=== PATIENT | female | born 1945 | race Caucasian/White ===

== ENCOUNTER 2020-11-04 13:50 | Outpatient (REF) | payer MEDICARE, SELFPAY ==
--- NOTE | ~2020-11-04 | MM_ITS ---
EXAMINATION: MM SCREENING DIGITAL BREAST TOMOSYNTHESIS, BILATERAL CLINICAL INFORMATION: Screening. Asymptomatic. The lifetime risk of breast cancer based on the Tyrer-Cuzick Model is 4%. COMPARISON: Mammography: 09/03/2019, 09/01/2018, 08/21/2016 TECHNIQUE: Digital breast tomosynthesis is performed in both the craniocaudal and mediolateral oblique views along with computer-aided detection (CAD). Synthesized 2D images are generated from the tomosynthesis. FINDINGS: The breasts are heterogeneously dense, which may obscure small masses (ACR BI-RADS breast composition Category c). There are no significant masses, abnormal calcifications, or other abnormalities. Fibronodular parenchymal pattern is similar to prior studies. Again, there is scattered bilateral punctate and coarse and vascular calcifications. The axilla and skin contours are unremarkable. No significant changes. MM/MM tomosynthesis screening BI IMPRESSION: No mammographic evidence of malignancy. ASSESSMENT: BI-RADS 2: Benign RECOMMENDATION: Routine annual mammography screening. This patient's information was entered into a reminder system with a target due date for their next mammogram.
== END 2020-11-04 13:51 | disposition home or self-care (01) ==
LOC: HO.MAMMO 13:50
PROVIDERS: PCP Internal Medicine; Visit Provider Internal Medicine
DX: Z12.31 Encounter for screening mammogram for malignant neoplasm of breast (principal)
CPT/HCPCS: 77063; 77067

== ENCOUNTER 2021-11-15 10:58 | Outpatient (REF) | payer MEDICARE, SELFPAY ==
--- NOTE | ~2021-11-15 | MM_ITS ---
EXAMINATION: MM SCREENING DIGITAL BREAST TOMOSYNTHESIS, BILATERAL CLINICAL INFORMATION: Screening. Asymptomatic. The lifetime risk of breast cancer based on the Tyrer-Cuzick Model is 3%. COMPARISON: Mammography: 11/04/2020, 09/03/2019, 09/01/2018 TECHNIQUE: Digital breast tomosynthesis is performed in both the craniocaudal and mediolateral oblique views along with computer-aided detection (CAD). Synthesized 2D images are generated from the tomosynthesis. FINDINGS: The breasts are heterogeneously dense, which may obscure small masses (ACR BI-RADS breast composition Category c). Parenchymal pattern is similar to prior studies. There is no developing density or architectural abnormality. There is fibronodular parenchymal pattern similar to prior studies. No interval dominant nodularity. Scattered benign round and coarse and some vascular calcifications are again seen. The axilla and skin contours are unremarkable. No significant changes. MM/MM tomosynthesis screening BI IMPRESSION: No mammographic evidence of malignancy. ASSESSMENT: BI-RADS 2: Benign RECOMMENDATION: Routine annual mammography screening. This patient's information was entered into a reminder system with a target due date for their next mammogram.
--- NOTE | ~2021-11-15 | MM_ITS ---
EXAMINATION: BONE DENSITOMETRY CLINICAL INDICATION: Osteopenia. COMPARISON: Baseline BD dated 09/24/2019. TECHNIQUE: Using a [employer]ble DXA System (software version: 13.1) manufactured by [employer], dual-energy x-ray absorptiometry was performed of the lumbar spine and left hip. The images are of good technical quality. Summary results are attached. FINDINGS: AP SPINE L1-L4 (excluding L3): The data of L1-L4 has been changed to exclude the L3 vertebral body, because degenerative changes and levocurvature at this level may cause overestimation of lumbar spine density. Current: BMD 1.346 g/cm2, Z-score 3.0, T-score 1.5, normal, 5.7% decrease from baseline (<5% change is not significant). Baseline: BMD 1.428 g/cm2. LEFT FEMUR, NECK: Current: BMD 0.808 g/cm2, Z-score 0.1, T-score -1.7, osteopenia. Baseline: BMD 0.763 g/cm2. LEFT FEMUR, TOTAL: Current: BMD 0.807 g/cm2, Z-score -0.1, T-score -1.6, osteopenia, 3.8% decrease from baseline (<5% change is not significant). Baseline: BMD 0.839 g/cm2. IDENTIFIED RISK FACTORS: Menopause, rheumatoid arthritis. HISTORY OF FRACTURE: None listed. MEDICATIONS: Calcium, vitamin D. MM/XR DEXA axial skeleton IMPRESSION: 1. DIAGNOSIS: Osteopenia based on the lowest T-score value of -1.7 in the femoral neck applying World Health Organization criteria. 2. 10-YEAR FRACTURE RISK PREDICTION, FRAX: Major osteoporotic fracture (clinical spine, forearm, hip or shoulder) 14.3%. Hip fracture 3.1%. 3. Treatment Recommendations: NOF guidelines recommend consideration for treatment in postmenopausal women and men age 50 and older presenting with the following: -A hip or vertebral (clinical or morphometric) fracture. -T-score less than or equal to -2.5 at the femoral neck or spine after appropriate evaluation to exclude secondary causes. -Low bone mass at the hip or spine and a 10-year fracture probability by FRAX of greater than or equal to 3% for hip fracture or greater than or equal to 20% for major osteoporotic fracture based on the [place] adapted WHO algorithm. 4. Other Recommendations: All treatment decisions require clinical judgment and consideration of individual patient factors, including patient preferences, comorbidities, previous drug use, risk factors not captured in the FRAX model (e.g. frailty, falls, vitamin D deficiency, increased bone turnover, interval significant decline in bone density) and possible under or overestimation of fracture risk by FRAX. Additional medical evaluation for secondary cause of low bone mineral density may be appropriate. FUTURE SCAN RECOMMENDATION: People with diagnosed cases of osteoporosis or at high risk for fracture should have regular bone mineral density tests. For patients eligible for Medicare, routine testing is allowed once every 2 years. The testing frequency can be increased to one year for patients who have rapidly progressing disease, those who are receiving or discontinuing medical therapy to restore bone mass, or have additional risk factors.
== END 2021-11-15 10:59 | disposition home or self-care (01) ==
LOC: HO.MAMMO 10:58
PROVIDERS: PCP Internal Medicine; Visit Provider Internal Medicine
DX: Z13.820 Encounter for screening for osteoporosis (principal); Z78.0 Asymptomatic menopausal state; M85.88 Other specified disorders of bone density and structure, other site; M06.9 Rheumatoid arthritis, unspecified; Z12.31 Encounter for screening mammogram for malignant neoplasm of breast
CPT/HCPCS: 77063; 77067; 77080

== ENCOUNTER 2022-12-06 12:11 | Outpatient (REF) | payer MEDICARE, SELFPAY ==
--- NOTE | ~2022-12-06 | MM_ITS ---
EXAMINATION: MM SCREENING DIGITAL BREAST TOMOSYNTHESIS, BILATERAL CLINICAL INFORMATION: Screening. Asymptomatic. The lifetime risk of breast cancer based on the Tyrer-Cuzick Model is 4%. COMPARISON: Mammography: 11/15/2021, 11/04/2020, 09/03/2019 TECHNIQUE: Digital breast tomosynthesis is performed in both the craniocaudal and mediolateral oblique views along with computer-aided detection (CAD). Synthesized 2D images are generated from the tomosynthesis. FINDINGS: The breasts are heterogeneously dense, which may obscure small masses (ACR BI-RADS breast composition Category c). Fibronodular parenchymal pattern is similar to prior exams and there is no developing density or architectural abnormality. Scattered bilateral benign coarse and round and vascular calcifications are again seen. There are no significant masses, abnormal calcifications, or other abnormalities. The axilla and skin contours are unremarkable. MM/MM tomosynthesis screening BI IMPRESSION: No mammographic evidence of malignancy. ASSESSMENT: BI-RADS 2: Benign RECOMMENDATION: Routine annual mammography screening. This patient's information was entered into a reminder system with a target due date for their next mammogram.
== END 2022-12-06 12:12 | disposition home or self-care (01) ==
LOC: HO.MAMMO 12:11
PROVIDERS: PCP Internal Medicine; Visit Provider Internal Medicine
DX: Z12.31 Encounter for screening mammogram for malignant neoplasm of breast (principal)
CPT/HCPCS: 77063; 77067

== ENCOUNTER 2023-04-14 07:13 | Outpatient (AMB) | payer MEDICARE, SELFPAY ==
--- NOTE | 2023-04-14 07:25 | MHC.PC.OV ---
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: pt is here for establishing care, care for afib Greenhouse Assistant Required: No Allergies No Known Allergies Allergy (Verified 04/14/23 07:37) Medication List - Last Reconciled 04/14/23 by Rakel Rodriguez MD amiodarone 200 mg PO DAILY amlodipine 10 mg PO DAILY apixaban (Eliquis) 5 mg PO BID atorvastatin 40 mg PO DAILY cholecalciferol (vitamin D3) 50 mcg PO DAILY folic acid 0.8 mg PO DAILY losartan 100 mg PO DAILY methotrexate sodium 20 mg PO QWEEK metoprolol succinate ER 75 mg PO DAILY omeprazole 20 mg PO DAILY trazodone 100 mg PO BEDTIME PRN vit C,E,Zn,Hn-rehye3-vlu-zeax 250-2.5-0.5 mg caps PO Tobacco use date assessed: 04/14/23 Fall risk assessment: No Falls in past year Last assessed Fall Risk: 04/14/23 Dental Screening Dental Screen Date: 04/14/23 Did you have a dental visit in the last 12 months?: Yes Did you have a dental problem in the last 6 months where you did not have access to dental care?: No Was dental information given to patient?: 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 Past medical history includes hypertension, hyperlipidemia, one episode of AFib last year, rheumatoid arthritis. PFSH Surgical History (Updated 04/14/23 @ 08:09 by Rakel Rodriguez MD) H/O breast biopsy Family History Father Heart problem Social History (Updated 04/14/23 @ 08:38 by Rakel Rodriguez MD) Household Members Other:: lives alone, daughter lives in [place], son lives in [place], Housing: House Alcohol intake: never Patient Tobacco Use Status: Never used Tobacco e-Cigarette/Vaping Use: Never Used service: No Current occupational status: retired Current occupational exposures/hazards: No Cognitive needs: No Hearing needs: No Vision needs: Yes Questionnaire PHQ-9 Over the last 2 weeks, how often have you been bothered by any of the following problems? 1. Little interest or pleasure in doing things: not at all 2. Feeling down, depressed, or hopeless: not at all 3. Trouble falling or staying asleep, or sleeping too much: not at all 4. Feeling tired or having little energy: not at all 5. Poor appetite or overeating: not at all 6. Feeling bad about yourself - or that you are a failure or have let yourself or your family down: not at all 7. Trouble concentrating on things, such as reading the newspaper or watching television: not at all 8. Moving or speaking so slowly that other people could have noticed. Or the opposite - being so fidgety or restless that you have been moving around a lot more than usual: not at all 9. Thoughts that you would be better off or of hurting yourself in some way: not at all Total score: 0 Depression Screening Interpretation: Negative 83496 - PHQ-9 Billing: Yes Source: Developed by Drs. Fredi Lambert, Kamila Winter, Jeanmarie Kevin and colleagues, with an educational clary from [employer]. Thrive Questionnaire Date Thrive assessed: 04/14/23 I am a: Patient What is your living situation today?: I have a steady place to live Within the past 12 months, did the food you bought not last and you didn't have the money to get more?: Never true Within the past 12 months, did you worry whether your food would run out before you got money to buy more?: Never true Do you have trouble paying for medicines?: No Do you have trouble getting transportation to medical appointments?: No Do you have trouble paying your heating and electricity bill?: No Do you have trouble taking care of your child, family member or friend?: No Do you have trouble with day-to-day activities such as bathing, preparing meals, shopping, managing finances, etc.?: No Are you currently unemployed and looking for a job?: No Are you interested in more education?: No Please select the resources that you would like help with: None Currently or been in a relationship where the following occur: no concerns reported RONDA-7 AMB Questionnaire RONDA-7 Date RONDA - 7 assessed: 04/14/23 Feeling nervous, anxious, or on edge: 0 = Not at all Not being able to stop or control worryin = Not at all Worrying too much about different things: 0 = Not at all Trouble relaxin = Not at all Being so restless that it is hard to sit still: 0 = Not at all Becoming easily annoyed or irritable: 0 = Not at all Feeling afraid as if something awful might happen: 0 = Not at all Total RONDA-7 score (0-4 normal; 5-9 mild; 10-14 moderate; 15-21 severe): 0 Source: Developed by Drs. Fredi Lambert, Kamila Winter, Jeanmarie Kevin and colleagues, with an educational clary from [employer]. RONDA-7 Assessment Billing RONDA-7 Assessment Tool: RONDA-7 Assessment 41047 Review of Systems Const All systems reviewed & are unremarkable except as noted in HPI and below Reports no additional complaints Eyes Reports no additional complaints ENT Reports no additional complaints Card Reports no additional complaints Resp Reports no additional complaints GI Reports no additional complaints Reports no additional complaints Physical exam (Primary Care) Vital Signs: Last Vital Signs Pulse 76 04/14/23 07:29 BP 128/70 04/14/23 07:29 Pulse Ox 98 04/14/23 07:29 BMI result Body Mass Index 25.1 Tobacco/Smoking Status: Tobacco use Status Tobacco use date assessed 04/14/23 04/14/23 07:46 Patient Tobacco Use Status Never used Tobacco 04/14/23 07:46 e-Cigarette/Vaping Use Never Used 04/14/23 07:46 PHQ-9: PHQ-9 Score PHQ-9: Total score 0 04/14/23 07:46 Depression Screening Interpretation: Negative Thrive Assessment: Date of Thrive Assessment Date Thrive assessed 04/14/23 04/14/23 07:46 Currently or been in a relationship where the following occur: no concerns reported Const General: no acute distress HENMT Head: Yes normal to inspection Ears: hearing grossly normal bilaterally Face and sinus: Yes normal facial exam Mouth: Normal oral and palatal mucosa present Throat: Yes posterior oropharynx normal Eyes General: appearance normal, both eyes and all related structures Neck Neck: Yes no lymphadenopathy and Yes supple Resp Effort & Inspection: normal respiratory effort Auscultation: clear to auscultation bilaterally Cardio Rhythm: regular rhythm Heart sounds: S1 normal heart sound present and S2 normal heart sound present GI Inspection: Yes normal to inspection Palpation (GI): Soft to palpation Percussion: Yes normal to percussion Auscultation: normal bowel sounds General: Yes Bimanual renal exam normal bilaterally Assessment and Plan Assessment & Plan (1) A-fib: Comment: 1 episode 2021 f/u [facility], Code(s): I48.91 - Unspecified atrial fibrillation Plan: Continue medications and follow-up with funeral counselor every 6 months, patient will return in 5 months with fasting labs before (2) Hyperlipidemia: Code(s): E78.5 - Hyperlipidemia, unspecified Plan: Continue statin (3) GERD (gastroesophageal reflux disease): Comment: f/u Dr. 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 Panel Fast 5 Months E55.9 - Vitamin D deficiency, unspecified, E78.5 - Hyperlipidemia, unspecified, H35.9 - Unspecified retinal disorder, I10 - Essential (primary) hypertension, I48.91 - Unspecified atrial fibrillation, M05.20 - Rheumatoid vasculitis with rheumatoid arthritis of unspecified site Lipid Panel 5 Months E55.9 - Vitamin D deficiency, unspecified, E78.5 - Hyperlipidemia, unspecified, H35.9 - Unspecified retinal disorder, I10 - Essential (primary) hypertension, I48.91 - Unspecified atrial fibrillation, M05.20 - Rheumatoid vasculitis with rheumatoid arthritis of unspecified site TSH reflex Free T4 5 Months E55.9 - Vitamin D deficiency, unspecified, E78.5 - Hyperlipidemia, unspecified, H35.9 - Unspecified retinal disorder, I10 - Essential (primary) hypertension, I48.91 - Unspecified atrial fibrillation, M05.20 - Rheumatoid vasculitis with rheumatoid arthritis of unspecified site Vitamin D 25-OH Total 5 Months E55.9 - Vitamin D deficiency, unspecified, E78.5 - Hyperlipidemia, unspecified, H35.9 - Unspecified retinal disorder, I10 - Essential (primary) hypertension, I48.91 - Unspecified atrial fibrillation, M05.20 - Rheumatoid vasculitis with rheumatoid arthritis of unspecified site Complete Blood Count Auto Diff 5 Months E55.9 - Vitamin D deficiency, unspecified, E78.5 - Hyperlipidemia, unspecified, H35.9 - Unspecified retinal disorder, I10 - Essential (primary) hypertension, I48.91 - Unspecified atrial fibrillation, M05.20 - Rheumatoid vasculitis with rheumatoid arthritis of unspecified site Coding Level of Care Code New Pt Level 4 (53447) Diagnoses A-fib I48.91 Hyperlipidemia E78.5 GERD (gastroesophageal reflux disease) K21.9 Hx of colonoscopy Z98.890 Hx of screening mammography Z92.89 Rheumatoid arteritis M05.20 Vitamin D deficiency E55.9 Additional Codes RONDA-7 Assessment Billing - RONDA-7 Assessment Tool: RONDA-7 Assessment 41323 ([id number])
[2023-04-14 07:29] VITALS: BP 128/70; PULSE 76; O2SAT 98; BMI 25.1
== END 2023-04-14 08:26 | disposition home or self-care (01) ==
PROVIDERS: Visit Provider Internal Medicine
DX: I48.91 Unspecified atrial fibrillation (principal); E78.5 Hyperlipidemia, unspecified; K21.9 Gastro-esophageal reflux disease without esophagitis; Z98.890 Other specified postprocedural states; Z92.89 Personal history of other medical treatment; M05.20 Rheumatoid vasculitis with rheumatoid arthritis of unspecified site; E55.9 Vitamin D deficiency, unspecified
CPT/HCPCS: 99204

== ENCOUNTER 2023-04-21 08:47 | Outpatient (AMB) | payer MEDICARE, SELFPAY ==
--- NOTE | 2023-04-21 08:59 | MHC.OFFWIV ---
Intake Vital Signs 04/21/23 09:00 Height 5 ft 1 in BP 128/62 Blood Pressure Location Rt brachial Position Sitting Pulse 73 Pulse Source Pulse Oximeter Pulse Oximetry (%) 98 Oxygen Delivery Method Room Air Intake Visit Reasons: EP lower back pain after fall (lob) Intake Note: Pt states fell in her garage from standing on ladder on Friday. Pt states its her Lower mid back where the pain is. Patient Tobacco Use Status: Never used Tobacco Allergies No Known Allergies Allergy (Verified 04/21/23 09:56) Medication List - Last Reconciled 04/21/23 by Kevin Burnett MD amiodarone 200 mg PO DAILY amlodipine 10 mg PO DAILY apixaban (Eliquis) 5 mg PO BID atorvastatin 40 mg PO DAILY cholecalciferol (vitamin D3) 50 mcg PO DAILY folic acid 0.8 mg PO DAILY losartan 100 mg PO DAILY methotrexate sodium 20 mg PO QWEEK metoprolol succinate ER 75 mg PO DAILY omeprazole 20 mg PO DAILY trazodone 100 mg PO BEDTIME PRN vit C,E,Zn,Xw-slscu0-qpa-zeax 250-2.5-0.5 mg caps PO HPI EP lower back pain after fall (lobby) HPI Details 77-year-old female presents to the office for a sick visit. Patient missed a step in the ladder and fell on Friday last. She could get up on her own unassisted. Patient has severe pain on the left upper side of the back. [facility] Surgical History (Updated 04/14/23 @ 08:09 by Rakel Rodriguez MD) H/O breast biopsy Family History Father Heart problem Social History (Updated 04/14/23 @ 08:38 by Rakel Rodriguez MD) Household Members Other:: lives alone, daughter lives in [place], son lives in [place], Housing: House Alcohol intake: never Patient Tobacco Use Status: Never used Tobacco e-Cigarette/Vaping Use: Never Used service: No Current occupational status: retired Current occupational exposures/hazards: No Cognitive needs: No Hearing needs: No Vision needs: Yes Physical Exam Vital Signs: Last Vital Signs Pulse 73 04/21/23 09:00 BP 128/62 04/21/23 09:00 Pulse Ox 98 04/21/23 09:00 Oxygen Delivery Method Room Air 04/21/23 09:00 Const General: cooperative and healthy appearing Nutritional Appearance: well nourished Orientation/consciousness: patient oriented x3 Limitations: no limitations HEENT Head: Yes normal to inspection Eyes General: appearance normal, both eyes and all related structures Neck Neck: Yes normal visual inspection Chest Chest palpation & inspection: normal palpation of entire chest wall Resp Effort & Inspection: normal respiratory effort Back/Spine/Pelvis Other: Extremely tender to touch over the left 11th and 12th ribs. There is a bruising over back area. Neuro General: patient oriented x3 Assessment & Plan Assessment & Plan (1) Contusion, chest wall: Code(s): S20.219A - Contusion of unspecified front wall of thorax, initial encounter Plan: X-ray reviewed with patient. Possible fracture over the eleventh and 12th rib. Toradol injection given. Tramadol prescription provided. To take the medication once a day. If symptoms do not improve to follow-up here. Orders: Orders AMB Ketorolac Injection Today M54.50 - Low back pain, unspecified Medications: New ketorolac 60 mg (2 mL) IM ONCE 2 mL 0RF M54.50 - Low back pain, unspecified tramadol 50 mg PO DAILY 7 tabs 0RF Coding Level of Care Code Est Pt Level 4 (66636) Diagnoses Contusion, chest wall S20.219A
[2023-04-21 09:00] VITALS: BP 128/62; PULSE 73; O2SAT 98
== END 2023-04-21 10:20 | disposition home or self-care (01) ==
PROVIDERS: PCP Internal Medicine; Visit Provider Internal Medicine
DX: S20.219A Contusion of unspecified front wall of thorax, initial encounter (principal); M54.50 Low back pain, unspecified
CPT/HCPCS: 96372; 99214; J1885

== ENCOUNTER 2023-04-21 09:34 | Outpatient (REF) | payer MEDICARE, SELFPAY ==
--- NOTE | ~2023-04-21 | XR_ITS ---
EXAMINATION: XR RIBS, left, PA CHEST CLINICAL INFORMATION: Chest and left rib pain. COMPARISON: None available. TECHNIQUE: 3 views of the left ribs were obtained along with a PA view of the chest. FINDINGS: Lungs are clear. No consolidation, pneumothorax, or pleural effusion. The cardiomediastinal silhouette and pulmonary vasculature are normal. Deformity seen in the lateral left 11th rib. Ribs are intact. No fractures are identified. XR/XR ribs LT min 3V w CXR1V IMPRESSION: 1. Deformity in the left lateral seventh rib suggestive of an acute fracture or correlate with physical exam. 2. No acute cardiopulmonary process.
== END 2023-04-21 09:35 | disposition home or self-care (01) ==
LOC: HO.HMGCX 09:34
PROVIDERS: PCP Internal Medicine; Visit Provider Internal Medicine
DX: S20.212A Contusion of left front wall of thorax, initial encounter (principal)
CPT/HCPCS: 71101

== ENCOUNTER 2023-08-14 08:13 | Outpatient (REF) | payer MEDICARE, SELFPAY ==
[2023-08-14 11:48] LABS: MANUAL DIFF FLAG NO
[2023-08-14 12:16] LABS: Basophils Absolute Auto 0.1 X10*3/uL (0.0-0.2); Eosinophils Absolute Auto 0.2 X10*3/uL (0.0-0.4); Eosinophils Percent Auto 4.6 % (0-4); Hematocrit 38.9 % (37.0-47.0); Hemoglobin 12.6 g/dl (12.0-16.0); Imm Gran Abs Auto 0.02 X10*3/uL (0.00-0.03); Imm Gran Pct Auto 0.4 % (0.0-0.4); Lymphocytes Percent Auto 21.4 % (20-40); Mean Corpuscular HGB Conc 32.4 g/dl (31.0-35.0); Mean Corpuscular Hemoglobin 31.8 pg (27.0-33.0); Mean Corpuscular Volume 98.2 fL (80.0-98.0); Mean Platelet Volume 10.2 fL (9.4-12.3); Monocytes Absolute Auto 0.4 X10*3/uL (0.1-1.2); Monocytes Percent Auto 7.5 % (2-11); Neutrophils Absolute Auto 3.1 x10*3/uL (2.0-8.3); Neutrophils Percent Auto 65.1 % (45-73); Platelet Count 255 X10*3/uL (160-400); Red Blood Count 3.96 X10*6/uL (4.20-5.50); Red Cell Distribution Width 14.1 % (11.0-16.0); White Blood Count 4.8 X10*3/uL (4.8-10.8)
[2023-08-14 12:42] LABS: Alanine Aminotransferase 16 U/L (0-31); Alkaline Phosphatase 72 U/L (39-117); Anion Gap 11 (12-20); Aspartate Amino Transferase 16 U/L (5-31); Bilirubin Total 1.2 mg/dL (0.0-1.0); Blood Urea Nitrogen 11 mg/dL (9-16); Calcium 9.4 mg/dL (8.4-10.2); Carbon Dioxide 28 mmol/L (22-29); Chloride 107 mmol/L (96-108); Cholesterol 121 mg/dL (<200); Estimated Glomerular Filt Rate > 60; Glucose Fasting 106 mg/dL (60-99); HDL Cholesterol 52 mg/dL (>40); LDL Cholesterol Calculated 57 mg/dL (<100); Potassium 4.1 mmol/L (3.3-5.1); Sodium 142 mmol/L (135-145); Total Protein 6.5 g/dL (6.5-8.0); Triglycerides 61 mg/dL (<150)
[2023-08-14 12:47] LABS: TSH reflex Free T4 6.22 uIU/mL (0.32-4.0); Vitamin D 25-OH Total 72.1 ng/mL (>30)
[2023-08-14 14:11] LABS: Free T4 (Free Thyroxine) 0.93 ng/dL (0.71-1.85)
== END 2023-08-14 08:14 | disposition home or self-care (01) ==
LOC: HO.HMGCLDS 08:13
PROVIDERS: Absent Provider Internal Medicine; PCP Internal Medicine; Visit Provider Internal Medicine
DX: M05.20 Rheumatoid vasculitis with rheumatoid arthritis of unspecified site (principal); E78.5 Hyperlipidemia, unspecified; I48.91 Unspecified atrial fibrillation; I10 Essential (primary) hypertension; H35.9 Unspecified retinal disorder; E55.9 Vitamin D deficiency, unspecified; Z79.899 Other long term (current) drug therapy
CPT/HCPCS: 36415; 80053; 80061; 82306; 84439; 84443; 85025

== ENCOUNTER 2023-08-19 09:57 | Outpatient (AMB) | payer MEDICARE, SELFPAY ==
[2023-08-19 10:01] VITALS: BP 104/64; PULSE 53; O2SAT 100; BMI 23.2
--- NOTE | 2023-08-19 10:01 | A.OFFPC_ITS ---
Vital Signs 08/19/23 10:01 Height 5 ft 1 in Weight 123 lb BMI 23.2 BP 104/64 Blood Pressure Location Lt brachial Position Sitting Pulse 53 Pulse Source Pulse Oximeter Pulse Oximetry (%) 100 Oxygen Delivery Method Room Air Intake Visit Reasons: 5 month follow up Intake Note: Pt is here today for 5 months follow up visit on labs. Allergies No Known Allergies Allergy (Verified 08/19/23 10:06) Medication List - Last Reconciled 08/19/23 by Rakel Rodriguez MD amiodarone 200 mg PO DAILY amlodipine 10 mg PO DAILY apixaban (Eliquis) 5 mg PO BID atorvastatin 40 mg PO DAILY cholecalciferol (vitamin D3) 50 mcg PO DAILY folic acid 0.8 mg PO DAILY losartan 100 mg PO DAILY methotrexate sodium 20 mg PO QWEEK metoprolol succinate ER 75 mg PO DAILY omeprazole 20 mg PO DAILY trazodone 100 mg PO BEDTIME PRN vit C,E,Zn,Af-ecmvr4-mss-zeax 250-2.5-0.5 mg caps PO Tobacco use date assessed: 08/19/23 HPI 5 month follow up HPI Details Pt presents for A fib, HTN, hyperlipid, stable on meds. PFSH Surgical History H/O breast biopsy Family History Father Heart problem Social History Household Members Other:: lives alone, daughter lives in [place], son lives in [place], Housing: House Alcohol intake: never Patient Tobacco Use Status: Never used Tobacco e-Cigarette/Vaping Use: Never Used service: No Current occupational status: retired Current occupational exposures/hazards: No Cognitive needs: No Hearing needs: No Vision needs: Yes Questionnaire Thrive Questionnaire Date Thrive assessed: 04/14/23 AUDIT C Alcohol Use Questionnaire (AUDIT-C) 1. How often do you have a drink containing alcohol?: Never 2. How many drinks containing alcohol do you have on a typical day when you are drinking?: 1 or 2 3. How often do you have six or more drinks on one occasion?: Never Total Score: 0 RONDA-7 AMB Questionnaire RONDA-7 Date RONDA - 7 assessed: 04/14/23 Feeling nervous, anxious, or on edge: 0 = Not at all Not being able to stop or control worryin = Not at all Worrying too much about different things: 0 = Not at all Trouble relaxin = Not at all Being so restless that it is hard to sit still: 0 = Not at all Becoming easily annoyed or irritable: 0 = Not at all Feeling afraid as if something awful might happen: 0 = Not at all Total RONDA-7 score (0-4 normal; 5-9 mild; 10-14 moderate; 15-21 severe): 0 Source: Developed by Drs. Fredi Lambert, Kamila Winter, Jeanmarie Kevin and colleagues, with an educational lcary from [employer]. Review of Systems Const All systems reviewed & are unremarkable except as noted in HPI and below Reports no additional complaints Eyes Reports no additional complaints ENT Reports no additional complaints Card Reports no additional complaints Resp Reports no additional complaints GI Reports no additional complaints Reports no additional complaints Physical exam (Primary Care) Vital Signs: Last Vital Signs Pulse 53 08/19/23 10:01 BP 104/64 08/19/23 10:01 Pulse Ox 100 08/19/23 10:01 Oxygen Delivery Method Room Air 08/19/23 10:01 BMI result Body Mass Index 23.2 Tobacco/Smoking Status: Tobacco use Status Tobacco use date assessed 08/19/23 08/19/23 10:10 Patient Tobacco Use Status Never used Tobacco 08/19/23 10:10 e-Cigarette/Vaping Use Never Used 08/19/23 10:02 Thrive Assessment: Date of Thrive Assessment Date Thrive assessed 04/14/23 08/19/23 10:02 Const General: no acute distress HENMT Head: Yes normal to inspection Ears: hearing grossly normal bilaterally Mouth: Normal oral and palatal mucosa present Eyes General: appearance normal, both eyes and all related structures Neck Neck: Yes no lymphadenopathy and Yes supple Resp Effort & Inspection: normal respiratory effort Auscultation: clear to auscultation bilaterally Cardio Rhythm: regular rhythm Heart sounds: S1 normal heart sound present and S2 normal heart sound present GI Inspection: Yes normal to inspection Palpation (GI): Soft to palpation Assessment and Plan Assessment & Plan (1) Hypothyroid: Comment: ? side effect from AMIODARONE Code(s): E03.9 - Hypothyroidism, unspecified Plan: recheck TSH in mid Sep and is still elevated start Levothyroxine (2) HTN (hypertension): Code(s): I10 - Essential (primary) hypertension Plan: Cont meds (3) Hyperlipidemia: Code(s): E78.5 - Hyperlipidemia, unspecified Plan: cont statin (4) A-fib: Comment: 1 episode 2020 f/u [facility], Dr. Horton Code(s): I48.91 - Unspecified atrial fibrillation Plan: cont meds, f/u 6 months Orders: Orders Comprehensive [place]. Panel Fast 6 Months E03.9 - Hypothyroidism, unspecified, E78.5 - Hyperlipidemia, unspecified, I10 - Essential (primary) hypertension, I48.91 - Unspecified atrial fibrillation TSH reflex Free T4 6 Months E03.9 - Hypothyroidism, unspecified, E78.5 - Hyperlipidemia, unspecified, I10 - Essential (primary) hypertension, I48.91 - Unspecified atrial fibrillation Complete Blood Count Auto Diff 6 Months E03.9 - Hypothyroidism, unspecified, E78.5 - Hyperlipidemia, unspecified, I10 - Essential (primary) hypertension, I48.91 - Unspecified atrial fibrillation Medications: New amiodarone 200 mg PO DAILY 90 tabs 3RF amlodipine 10 mg PO DAILY 90 tabs 3RF losartan 100 mg PO DAILY 90 tabs 3RF atorvastatin 40 mg PO DAILY 90 tabs 3RF metoprolol succinate ER 75 mg (1.5 x 50 mg) PO DAILY 135 tabs 3RF trazodone 100 mg (2 x 50 mg) PO BEDTIME PRN 180 tabs 3RF sleep Changed From apixaban (Eliquis) 5 mg PO BID To Eliquis (apixaban) 5 mg PO BID 180 tabs 3RF NS Coding Level of Care Code Est Pt Level 4 (36646) Diagnoses Hypothyroid E03.9 HTN (hypertension) I10 Hyperlipidemia E78.5 A-fib I48.91
== END 2023-08-19 10:56 | disposition home or self-care (01) ==
PROVIDERS: PCP Internal Medicine; Visit Provider Internal Medicine
DX: E03.9 Hypothyroidism, unspecified (principal); I10 Essential (primary) hypertension; E78.5 Hyperlipidemia, unspecified; I48.91 Unspecified atrial fibrillation
CPT/HCPCS: 99214

== ENCOUNTER 2023-12-16 11:30 | Outpatient (REF) | payer MEDICARE, SELFPAY ==
--- NOTE | ~2023-12-16 | MM_ITS ---
EXAMINATION: MM SCREENING DIGITAL BREAST TOMOSYNTHESIS, BILATERAL CLINICAL INFORMATION: Screening. Asymptomatic. COMPARISON: Mammography: This study is compared with prior exams dating back to 2019. TECHNIQUE: Digital breast tomosynthesis is performed in both the craniocaudal and mediolateral oblique views along with computer-aided detection (CAD). Synthesized 2D images are generated from the tomosynthesis. FINDINGS: The breasts are heterogeneously dense, which may obscure small masses (ACR BI-RADS breast composition Category c). The volume of intraparenchymal breast fat and subcutaneous fat of the breasts has decreased owing to the patient's 42, weight loss since her last mammogram from 2022. There are no significant masses, abnormal calcifications, or other abnormalities. There are unchanged, bilateral benign calcifications. MM/MM tomosynthesis screening BI IMPRESSION: No mammographic evidence of malignancy. ASSESSMENT: BI-RADS BI-RADS 2 - Benign Findings RECOMMENDATION: Routine annual mammography screening. 1 year F/U This examination should not preclude the clinical evaluation of a suspicious palpable abnormality. This patient's information was entered into a reminder system with a target due date for their next mammogram.
== END 2023-12-16 11:31 | disposition home or self-care (01) ==
LOC: HO.MAMMO 11:30
PROVIDERS: PCP Internal Medicine; Visit Provider Internal Medicine
DX: Z12.31 Encounter for screening mammogram for malignant neoplasm of breast (principal)
CPT/HCPCS: 77063; 77067

== ENCOUNTER → 2023-12-16 11:45 | Outpatient (BNV) | payer MEDICARE, SELFPAY | PROVIDERS: PCP Internal Medicine; Visit Provider Radiology Diagnostic Radiology | DX: Z12.31 Encounter for screening mammogram for malignant neoplasm of breast (principal) | CPT/HCPCS: 77063; 77067 ==

== ENCOUNTER 2024-02-17 11:21 | Outpatient (AMB) | payer MEDICARE, SELFPAY ==
[2024-02-17 11:30] VITALS: BP 118/66; PULSE 58; O2SAT 99; BMI 23.4
--- NOTE | 2024-02-17 11:30 | AM.OFFVISMDC ---
Intake Vital Signs 02/17/24 11:30 Height 5 ft 1 in Weight 124 lb BMI 23.4 BP 118/66 Blood Pressure Location Lt brachial Position Sitting Pulse 58 Pulse Source Pulse Oximeter Pulse Oximetry (%) 99 Oxygen Delivery Method Room Air Intake Visit Reasons: [facility] G0439 Allergies No Known Allergies Allergy (Verified 02/17/24 11:52) Medication List - Last Reconciled 02/17/24 by Rakel Rodriguez MD amiodarone 200 mg PO DAILY amlodipine 10 mg PO DAILY atorvastatin 40 mg PO DAILY cholecalciferol (vitamin D3) 50 mcg PO DAILY Eliquis (apixaban) 5 mg PO BID NS folic acid 0.8 mg PO DAILY levothyroxine 25 mcg PO DAILY losartan 100 mg PO DAILY methotrexate sodium 20 mg PO QWEEK metoprolol succinate ER 75 mg (1.5 x 50 mg) PO DAILY omeprazole 20 mg PO DAILY trazodone 100 mg (2 x 50 mg) PO BEDTIME PRN vit C,E,Zn,Ce-aydzu7-wzy-zeax 250-2.5-0.5 mg caps PO HPI [facility] G0439 HPI Details Initiated the conversation about Advanced Directives. Advanced Directives help? patients prepare for current and future decisions about their medical treatment? and place of care. Discussed with patient that it is a process where a patients? current condition and prognosis are reviewed, their wishes for information? regarding their illness are elicited, and likely medical dilemmas are presented? and options discussed. The form can be amended as needed, reviewed yearly and? make changes as needed IPPE/AWV ? year old presents? for her ? Annual? Wellness Visit, initial visit.? Medical / Social History Reviewed? Past Medical History ?Yes? . ? [place]? of Care / Care Team list updated ?Yes . ? Surgical/Hospitalization? History ?Yes . ? Current Medications? (including OTC and supplements) ?Yes . ? Family History ?Yes? . ? Tobacco? Control form ?Yes . ? AUDIT-C (Alcohol use) form? ?Yes . ? Illicit drug use in Social? History ?Yes . ? Current diagnosis of? depression? ?No ? Appropriate PHQ2/PHQ9? completed ?Yes . ? Data entered by ?Medical? [employer] and reviewed by provider ? Fall Risk ? Fall? History? Have you had any falls with? injury in the past year? ?No . ? Have you had two or more? falls in the past year? ?No . ? Fall Risk Assessment: ?No? falls in the past year . ? HRA filled out by? the patient, reviewed by Provider and scanned. ? IPPE/AWV ? Balance? [place]? ?Yes . ? Tandem? walk ?Yes . ? Walk and? Turn ?Yes . ? Rise from? sit to stand ?Yes . ?Vision? Corrective? lens ?Yes ? Vision? screen ? Up-to-date, has an appointment [] for vision? screening and glaucoma screening ?Hearing? Whisper? test ?pass .? Initiated the conversation about Advanced Directives. Advanced Directives help? patients prepare for current and future decisions about their medical treatment? and place of care. Discussed with patient that it is a process where a patients? current condition and prognosis are reviewed, their wishes for information? regarding their illness are elicited, and likely medical dilemmas are presented? and options discussed. The form can be amended as needed, reviewed yearly and? make changes as needed Written? Plan?Completed. See Patient? Documents. PFSH Surgical History H/O breast biopsy Family History Father Heart problem Social History Household Members Other:: lives alone, daughter lives in [place], son lives in [place], Housing: House Alcohol intake: never Patient Tobacco Use Status: Never used Tobacco e-Cigarette/Vaping Use: Never Used service: No Current occupational status: retired Current occupational exposures/hazards: No Cognitive needs: No Hearing needs: No Vision needs: Yes Questionnaire Medicare Wellness Checkup [age] What gender do you identify with?: female During the past 4 weeks, how much have you been bothered by emotional problems such as feeling anxious, depressed, irritable, sad or downhearted, and blue?: not at all During the past 4 weeks, has your physical & emotional health limited your social activities with family, friends, neighbors, or groups?: not at all During the past 4 weeks, how much bodily pain have you generally had?: mild pain During the past 4 weeks, was someone available to help you if you needed & wanted help?: yes, as much as I wanted During the past 4 weeks, what was the hardest physical activity you could do for at least 2 minutes?: moderate Can you get to places out of walking distance without help? (For eg., can you travel alone on buses, taxis or drive your car?): Yes Can you go shopping for groceries or clothes without someone's help?: Yes Can you prepare your own meals?: Yes Can you do your housework without help?: Yes Because of any health problems, do you need the help of another person with your personal care needs such as eating, bathing, dressing or getting around the house?: No Can you handle your own money without help?: Yes During the past 4 weeks, how would you rate your health in general?: very good During the past 4 weeks how have things been going for you?: very well; could hardly better Are you having difficulties driving your car?: no Do you always fasten your seat belt when you are in a car?: yes, usually During past 4 weeks, have you been bothered by the following: never: Falling or dizzy when standing up, Sexual problems?, Trouble eating well?, Teeth or denture problems? and Problems using the telephone? and seldom: Tiredness or fatigue? Have you fallen 2 or more times in the past year?: No Are you afraid of falling?: Yes Are you a smoker?: no During the past 4 weeks, how many drinks of wine, beer, or other alcoholic beverages did you have?: no alcohol at all Do you exercise for about 20 minutes 3 or more times a week?: yes, some of the time Have you been given information to help with the following?: no: Hazards in your house that might hurt you? and no: Keeping track of your medications? How often do you have trouble taking medicines the way you have been told to take them?: I always take medicine as prescribed How confident are you that you can control & manage most of your health problems?: somewhat confident What is your race?: White Mini Mental State Exam (MMSE) Orientation What is the (year) (season) (date) (day) (month)?: year, season, date, day and month Where are we (state) (county) (town or city) (hospital) (floor)?: state, county, town or city, hospital/clinic and floor Registration Name of 3 unrelated objects clearly and slowly, then ask patient to repeat all 3 of them. (1st repeat determines score. Make sure they can repeat all three): object 1, object 2 and object 3 Attention & Calculation (CHOOSE ONE) Spell WORLD backwards (DLROW): 5 letters Recall Ask patient to repeat the 3 items from question #3.: object 1, object 2 and object 3 Language Show patient a wristwatch & ask what it is. Repeat for pencil.: watch and pencil Ask the patient to repeat the phrase 'No ifs, ands, or buts' after you.: correct Ask the patient to 'take a piece of paper with their right hand' 'fold paper in half' 'place paper on floor': take paper in right hand, fold paper in half and place paper on floor Print the sentence 'CLOSE YOUR EYES' on a piece. If patient actually closes eyes then score.: followed written direction Give patient a blank piece of paper & ask to write a sentence. Score if it contains a noun & verb.: sentence contains subject and verb Score Score: 29 Activity of Daily Living Bathing - sponge bath, tub bath or shower: receives no assistance (gets in/out by self, if usual bathing means Dressing - getting clothes from closets & drawers, including inner/outer garments & fasteners.: gets clothes & gets completely dressed without help Toileting - going to the 'toilet room' for urine/bowel elimination & cleaning self/arranging clothes: goes to toilet room, cleans self, arranges clothes without help Transfer: moves in & out of bed and chair without help (may use support object) Continence: controls urination/bowel movements completely by self Feeding: feeds self without help Total Score: 0 Information obtained from: patient Using telephone: independent Traveling: independent Shopping: independent Preparing meals: independent Housework: independent Taking medicine: independent Managing money: independent PHQ-9 Over the last 2 weeks, how often have you been bothered by any of the following problems? 1. Little interest or pleasure in doing things: not at all 2. Feeling down, depressed, or hopeless: not at all 3. Trouble falling or staying asleep, or sleeping too much: not at all 4. Feeling tired or having little energy: not at all 5. Poor appetite or overeating: not at all 6. Feeling bad about yourself - or that you are a failure or have let yourself or your family down: not at all 7. Trouble concentrating on things, such as reading the newspaper or watching television: not at all 8. Moving or speaking so slowly that other people could have noticed. Or the opposite - being so fidgety or restless that you have been moving around a lot more than usual: not at all 9. Thoughts that you would be better off or of hurting yourself in some way: not at all Total score: 0 Depression Screening Interpretation: Negative Depression Screening Done: Yes Source: Developed by Drs. Fredi Lambert, Kamila Winter, Jeanmarie Kevin and colleagues, with an educational clary from [employer]. Review of Systems Const All systems reviewed & are unremarkable except as noted in HPI and below Eyes Reports no additional complaints ENT Reports no additional complaints Card Reports no additional complaints Resp Reports no additional complaints GI Reports no additional complaints Reports no additional complaints Physical Exam Vital Signs: Last Vital Signs Pulse 58 02/17/24 11:30 BP 118/66 02/17/24 11:30 Pulse Ox 99 02/17/24 11:30 Oxygen Delivery Method Room Air 02/17/24 11:30 BMI result Body Mass Index 23.4 Const General: no acute distress HEENT Head: Yes normal to inspection Eyes General: appearance normal, both eyes and all related structures Neck Neck: Yes supple Resp Effort & Inspection: normal respiratory effort Auscultation: clear to auscultation bilaterally Cardio Rhythm: regular rhythm Heart sounds: S1 normal heart sound present and S2 normal heart sound present GI Inspection: Yes normal to inspection Palpation (GI): Soft to palpation Percussion: Yes normal to percussion Auscultation: normal bowel sounds Extrem Other: 3+ no pitting edema bilaterally Assessment & Plan Assessment & Plan (1) Hypothyroid: Comment: ? side effect from AMIODARONE Code(s): E03.9 - Hypothyroidism, unspecified Plan: Start levothyroxine 25 mcg, check TSH in 2 months (2) HTN (hypertension): Code(s): I10 - Essential (primary) hypertension Plan: Patient has lower extremity edema from high dose of amlodipine. Amlodipine will be decreased to 5 mg and losartan changed to valsartan with hydrochlorothiazide 320/12.5. 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 Horton Code(s): I48.91 - Unspecified atrial fibrillation Plan: Continue Eliquis and metoprolol for rate control (5) Annual physical exam: Code(s): Z00.00 - Encounter for general adult medical examination without abnormal findings Plan: Well-balanced diet regular physical activity discussed with the patient. Orders: Orders TSH reflex Free T4 2 Months E03.9 - Hypothyroidism, unspecified Basic Metabolic Panel 1 Month I10 - Essential (primary) hypertension Medications: New levothyroxine 25 mcg PO DAILY 60 tabs 1RF valsartan-hydrochlorothiazide 320-12.5 mg 1 tab PO DAILY 90 tabs 0RF Quality Reporting (2019) Depression/Bipolar (159/160/161/177) PHQ-9: Total score: 0 Coding Level of Care Code Medicare Subsequent (G0439) Diagnoses Hypothyroid E03.9 HTN (hypertension) I10 Rheumatoid arteritis M05.20 A-fib I48.91 Annual physical exam Z00.00 CPT Codes Advance Care Planning - Advance Care Planning discussion: On file, no changes ([id number]) Advance Care Planning - Time spent: 1-15 minutes, on File ([id number]) Advance Care Planning Advance Care Planning discussion: On file, no changes Forms completed: Health Care Proxy Time spent: 1-15 minutes, on File
== END 2024-02-17 13:16 | disposition home or self-care (01) ==
PROVIDERS: PCP Internal Medicine; Visit Provider Internal Medicine
DX: Z00.00 Encounter for general adult medical examination without abnormal findings (principal); M05.20 Rheumatoid vasculitis with rheumatoid arthritis of unspecified site; I48.91 Unspecified atrial fibrillation; E03.9 Hypothyroidism, unspecified; I10 Essential (primary) hypertension
CPT/HCPCS: 1123F; G0439

== ENCOUNTER 2024-03-25 08:43 | Outpatient (REF) | payer MEDICARE, SELFPAY ==
[2024-03-25 10:09] LABS: MANUAL DIFF FLAG NO
[2024-03-25 10:23] LABS: Basophils Absolute Auto 0.1 X10*3/uL (0.0-0.2); Basophils Percent Auto 0.9 % (0-2); Eosinophils Absolute Auto 0.2 X10*3/uL (0.0-0.4); Eosinophils Percent Auto 3.2 % (0-4); Hematocrit 39.3 % (37.0-47.0); Hemoglobin 12.7 g/dl (12.0-16.0); Imm Gran Abs Auto 0.03 X10*3/uL (0.00-0.03); Imm Gran Pct Auto 0.4 % (0.0-0.4); Lymphocytes Percent Auto 14.2 % (20-40); Mean Corpuscular HGB Conc 32.3 g/dl (31.0-35.0); Mean Corpuscular Hemoglobin 31.3 pg (27.0-33.0); Mean Corpuscular Volume 96.8 fL (80.0-98.0); Mean Platelet Volume 10.4 fL (9.4-12.3); Monocytes Absolute Auto 0.6 X10*3/uL (0.1-1.2); Monocytes Percent Auto 8.3 % (2-11); Platelet Count 226 X10*3/uL (160-400); Red Blood Count 4.06 X10*6/uL (4.20-5.50); Red Cell Distribution Width 14.1 % (11.0-16.0); White Blood Count 6.8 X10*3/uL (4.8-10.8)
[2024-03-25 11:37] LABS: TSH reflex Free T4 5.22 uIU/mL (0.32-4.0)
[2024-03-25 12:13] LABS: Free T4 (Free Thyroxine) 1.01 ng/dL (0.71-1.85)
== END 2024-03-25 08:44 | disposition home or self-care (01) ==
LOC: HO.HMGCLDS 08:43
PROVIDERS: PCP Internal Medicine; Visit Provider Internal Medicine
DX: E03.9 Hypothyroidism, unspecified (principal); I10 Essential (primary) hypertension; E78.5 Hyperlipidemia, unspecified; I48.91 Unspecified atrial fibrillation
CPT/HCPCS: 36415; 84439; 84443; 85025

== ENCOUNTER 2024-04-23 11:10 | Outpatient (AMB) | payer MEDICARE, SELFPAY ==
[2024-04-23 11:22] VITALS: BP 106/66; PULSE 56; O2SAT 98; BMI 23.2
--- NOTE | 2024-04-23 11:22 | A.OFFPC_ITS ---
Vital Signs 04/23/24 11:22 Height 5 ft 1 in Weight 123 lb BMI 23.2 BP 106/66 Blood Pressure Location Rt brachial Position Sitting Pulse 56 Pulse Source Pulse Oximeter Pulse Oximetry (%) 98 Oxygen Delivery Method Room Air Intake Visit Reasons: 2M F/U Intake Note: Pt is here today for 2 months follow up visit. Allergies No Known Allergies Allergy (Verified 04/23/24 11:35) Medication List - Last Reconciled 04/23/24 by Rakel Rodriguez MD amiodarone 200 mg PO DAILY amlodipine 10 mg PO DAILY atorvastatin 40 mg PO DAILY cholecalciferol (vitamin D3) 50 mcg PO DAILY Eliquis (apixaban) 5 mg PO BID NS folic acid 0.8 mg PO DAILY levothyroxine 25 mcg PO DAILY methotrexate sodium 20 mg PO QWEEK metoprolol succinate ER 75 mg (1.5 x 50 mg) PO DAILY omeprazole 20 mg PO DAILY trazodone 100 mg (2 x 50 mg) PO BEDTIME PRN valsartan-hydrochlorothiazide 320-12.5 mg 1 tab PO DAILY vit C,E,Zn,Er-rygjv4-uky-zeax 250-2.5-0.5 mg caps PO vitamins A,C,I-muxh-ivzyse (PreserVision AREDS) PO Tobacco use date assessed: 04/23/24 Fall risk assessment: No Falls in past year Last assessed Fall Risk: 04/23/24 Dental Screening Dental Screen Date: 04/23/24 Did you have a dental visit in the last 12 months?: Yes Did you have a dental problem in the last 6 months where you did not have access to dental care?: No Was dental information given to patient?: Patient has dentist HPI 2M F/U HPI Details Patient presents for the follow-up of hypertension, hypothyroidism hyperlipidemia history of AFib, rhythm controlled on amiodarone and anticoagulated on Eliquis. PFSH Surgical History H/O breast biopsy Family History Father Heart problem Social History Household Members Other:: lives alone, daughter lives in [place], son lives in [place], Housing: House Alcohol intake: never Patient Tobacco Use Status: Never used Tobacco e-Cigarette/Vaping Use: Never Used service: No Current occupational status: retired Current occupational exposures/hazards: No Cognitive needs: No Hearing needs: No Vision needs: Yes Questionnaire PHQ-9 Over the last 2 weeks, how often have you been bothered by any of the following problems? 1. Little interest or pleasure in doing things: not at all 2. Feeling down, depressed, or hopeless: not at all 3. Trouble falling or staying asleep, or sleeping too much: not at all 4. Feeling tired or having little energy: not at all 5. Poor appetite or overeating: not at all 6. Feeling bad about yourself - or that you are a failure or have let yourself or your family down: not at all 7. Trouble concentrating on things, such as reading the newspaper or watching television: not at all 8. Moving or speaking so slowly that other people could have noticed. Or the opposite - being so fidgety or restless that you have been moving around a lot more than usual: not at all 9. Thoughts that you would be better off or of hurting yourself in some way: not at all Total score: 0 Depression Screening Interpretation: Negative Depression Screening Done: Yes 89245 - PHQ-9 Billing: Yes Source: Developed by Drs. Fredi Lambert, Kamila Winter, Jeanmarie Kevin and colleagues, with an educational clary from [employer]. Thrive Questionnaire Date Thrive assessed: 04/18/24 I am a: Patient What is your living situation today?: I have a steady place to live Within the past 12 months, did the food you bought not last and you didn't have the money to get more?: Never true Within the past 12 months, did you worry whether your food would run out before you got money to buy more?: Never true Do you have trouble paying for medicines?: No Do you have trouble getting transportation to medical appointments?: No Do you have trouble paying your heating and electricity bill?: No Do you have trouble taking care of your child, family member or friend?: No Do you have trouble with day-to-day activities such as bathing, preparing meals, shopping, managing finances, etc.?: No Are you currently unemployed and looking for a job?: No Are you interested in more education?: No Please select the resources that you would like help with: Housing/Retirement Currently or been in a relationship where the following occur: No concerns reported THRIVE Score: 0 AUDIT C Alcohol Use Questionnaire (AUDIT-C) 1. How often do you have a drink containing alcohol?: Never 3. How often do you have six or more drinks on one occasion?: Never Total Score: 0 RONDA-7 AMB Questionnaire RONDA-7 Date RONDA - 7 assessed: 04/23/24 Feeling nervous, anxious, or on edge: 0 = Not at all Not being able to stop or control worryin = Not at all Worrying too much about different things: 0 = Not at all Trouble relaxin = Not at all Being so restless that it is hard to sit still: 0 = Not at all Becoming easily annoyed or irritable: 0 = Not at all Feeling afraid as if something awful might happen: 0 = Not at all Total RONDA-7 score (0-4 normal; 5-9 mild; 10-14 moderate; 15-21 severe): 0 Source: Developed by Drs. Fredi Lambert, Kamila Winter, Jeanmarie Kevin and colleagues, with an educational clary from [employer]. Review of Systems Const All systems reviewed & are unremarkable except as noted in HPI and below Eyes Reports no additional complaints ENT Reports no additional complaints Card Reports no additional complaints Resp Reports no additional complaints GI Reports no additional complaints Reports no additional complaints Physical exam (Primary Care) Vital Signs: Last Vital Signs Pulse 56 04/23/24 11:22 BP 106/66 04/23/24 11:22 Pulse Ox 98 04/23/24 11:22 Oxygen Delivery Method Room Air 04/23/24 11:22 BMI result Body Mass Index 23.2 Tobacco/Smoking Status: Tobacco use Status Tobacco use date assessed 04/23/24 04/23/24 11:23 Patient Tobacco Use Status Never used Tobacco 04/23/24 11:23 e-Cigarette/Vaping Use Never Used 04/23/24 11:23 PHQ-9: PHQ-9 Score PHQ-9: Total score 0 04/23/24 11:36 Depression Screening Interpretation: Negative Thrive Assessment: Date of Thrive Assessment Date Thrive assessed 04/18/24 04/23/24 11:23 Currently or been in a relationship where the following occur: No concerns reported Const General: no acute distress HENMT Head: Yes normal to inspection Eyes General: appearance normal, both eyes and all related structures Resp Effort & Inspection: normal respiratory effort Auscultation: clear to auscultation bilaterally Cardio Rhythm: regular rhythm Heart sounds: S1 normal heart sound present and S2 normal heart sound present GI Inspection: Yes normal to inspection Palpation (GI): Soft to palpation Percussion: Yes normal to percussion Auscultation: normal bowel sounds Assessment and Plan Assessment & Plan (1) HTN (hypertension): Code(s): I10 - Essential (primary) hypertension Plan: cont current meds (2) Hypothyroid: Comment: ? side effect from AMIODARONE Code(s): E03.9 - Hypothyroidism, unspecified Plan: increase Levothyroxine to 50 mcg, Pt will discuss with Cardiology possible hypothyroidism as side effects from amiodarone (3) Hyperlipidemia: Code(s): E78.5 - Hyperlipidemia, unspecified Plan: cont statin (4) A-fib: Comment: 1 episode 2020 f/u [facility], Dr. 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 She will discussed discontinuation of amiodarone she has been taking it for 1 episode of AFib 3 years ago and developing hypothyroidism as possibly side effect. Orders: Orders Lipid Panel 2 Months E03.9 - Hypothyroidism, unspecified, I10 - Essential (primary) hypertension, I48.91 - Unspecified atrial fibrillation Comprehensive [place]. Panel Fast 2 Months E03.9 - Hypothyroidism, unspecified, I10 - Essential (primary) hypertension, I48.91 - Unspecified atrial fibrillation Complete Blood Count Auto Diff 2 Months E03.9 - Hypothyroidism, unspecified, I10 - Essential (primary) hypertension, I48.91 - Unspecified atrial fibrillation TSH reflex Free T4 2 Months E03.9 - Hypothyroidism, unspecified, I10 - Essential (primary) hypertension, I48.91 - Unspecified atrial fibrillation UA w Microscopic 2 Months E03.9 - Hypothyroidism, unspecified, I10 - Essential (primary) hypertension, I48.91 - Unspecified atrial fibrillation Medications: New levothyroxine 50 mcg PO DAILY 90 tabs 0RF amlodipine 5 mg PO DAILY 90 tabs 2RF Discontinued levothyroxine Discontinued Reason: Doctor's Order 25 mcg PO DAILY 60 tabs 1RF Coding Level of Care Code Est Pt Level 4 (90316) Diagnoses HTN (hypertension) I10 Hypothyroid E03.9 Hyperlipidemia E78.5 A-fib I48.91
== END 2024-04-23 13:42 | disposition home or self-care (01) ==
PROVIDERS: PCP Internal Medicine; Visit Provider Internal Medicine
DX: I10 Essential (primary) hypertension (principal); E03.9 Hypothyroidism, unspecified; E78.5 Hyperlipidemia, unspecified; I48.91 Unspecified atrial fibrillation
CPT/HCPCS: 99214

== ENCOUNTER 2024-06-16 09:41 | Outpatient (REF) | payer MEDICARE, SELFPAY ==
[2024-06-16 13:43] LABS: MANUAL DIFF FLAG NO
[2024-06-16 13:47] LABS: Appearance Urine Cloudy; Color Urine Yellow; Glucose Urine UA Negative (Negative); Leukocyte Esterase Urine Small (1+) (Negative); Nitrite Urine Positive (Negative); Specific Gravity - Urine 1.025 (1.005-1.025); UMIC TRIGGER UA YES; Urine Blood Negative (Negative); Urine Ketones Negative (Negative); Urine Protein Trace mg/dL (Neg-Trace)
[2024-06-16 13:55] LABS: Bacteria Urine 4+ (None Seen); RBC Urine 0-2 /HPF (0-2); Squamous Epithelial Cell Urine 0-2 /HPF (0-2); WBC Urine 21-50 /HPF (0-5)
[2024-06-16 14:00] LABS: Basophils Percent Auto 0.5 % (0-2); Eosinophils Absolute Auto 0.1 X10*3/uL (0.0-0.4); Eosinophils Percent Auto 1.4 % (0-4); Hematocrit 37.5 % (37.0-47.0); Hemoglobin 12.3 g/dl (12.0-16.0); Imm Gran Abs Auto 0.03 X10*3/uL (0.00-0.03); Imm Gran Pct Auto 0.5 % (0.0-0.4); Lymphocytes Absolute Auto 1.4 X10*3/uL (1.2-4.9); Lymphocytes Percent Auto 22.2 % (20-40); Mean Corpuscular HGB Conc 32.8 g/dl (31.0-35.0); Mean Corpuscular Hemoglobin 31.2 pg (27.0-33.0); Mean Corpuscular Volume 95.2 fL (80.0-98.0); Monocytes Absolute Auto 0.5 X10*3/uL (0.1-1.2); Monocytes Percent Auto 7.3 % (2-11); Neutrophils Absolute Auto 4.3 x10*3/uL (2.0-8.3); Neutrophils Percent Auto 68.1 % (45-73); Platelet Count 280 X10*3/uL (160-400); Red Blood Count 3.94 X10*6/uL (4.20-5.50); Red Cell Distribution Width 13.8 % (11.0-16.0); White Blood Count 6.3 X10*3/uL (4.8-10.8)
[2024-06-16 14:32] LABS: Alanine Aminotransferase 14 U/L (0-31); Albumin Level 3.7 g/dL (3.5-5.0); Alkaline Phosphatase 74 U/L (39-117); Anion Gap 13 (12-20); Aspartate Amino Transferase 13 U/L (5-31); Bilirubin Total 0.9 mg/dL (0.0-1.0); Blood Urea Nitrogen 15 mg/dL (9-16); Calcium 8.9 mg/dL (8.4-10.2); Carbon Dioxide 27 mmol/L (22-29); Chloride 108 mmol/L (96-108); Cholesterol 133 mg/dL (<200); Estimated Glomerular Filt Rate > 60; Glucose Fasting 100 mg/dL (60-99); HDL Cholesterol 57 mg/dL (>40); LDL Cholesterol Calculated 65 mg/dL (<100); Potassium 3.7 mmol/L (3.3-5.1); Sodium 144 mmol/L (135-145); TSH reflex Free T4 0.87 uIU/mL (0.32-4.0); Total Protein 6.3 g/dL (6.5-8.0); Triglycerides 55 mg/dL (<150)
== END 2024-06-16 09:42 | disposition home or self-care (01) ==
LOC: HO.HMGCLDS 09:41
PROVIDERS: PCP Internal Medicine; Visit Provider Internal Medicine
DX: E03.9 Hypothyroidism, unspecified (principal); I10 Essential (primary) hypertension; I48.91 Unspecified atrial fibrillation
CPT/HCPCS: 36415; 80053; 80061; 81001; 84443; 85025

== ENCOUNTER 2024-06-23 09:26 | Outpatient (AMB) | payer MEDICARE, SELFPAY ==
[2024-06-23 09:30] VITALS: BP 110/70; PULSE 55; O2SAT 99; BMI 23.6
--- NOTE | 2024-06-23 09:30 | A.OFFPC_ITS ---
Vital Signs 06/23/24 09:30 Height 5 ft 1 in Weight 125 lb BMI 23.6 BP 110/70 Blood Pressure Location Rt brachial Position Sitting Pulse 55 Pulse Source Pulse Oximeter Pulse Oximetry (%) 99 Oxygen Delivery Method Room Air Intake Visit Reasons: 2 month follow up Intake Note: Pt is here today for 2 months follow up visit. Allergies No Known Allergies Allergy (Verified 06/23/24 09:32) Medication List - Last Reconciled 06/23/24 by Rakel Rodriguez MD amiodarone 200 mg PO DAILY amlodipine 5 mg PO DAILY atorvastatin 40 mg PO DAILY cholecalciferol (vitamin D3) 50 mcg PO DAILY Eliquis (apixaban) 5 mg PO BID NS folic acid 0.8 mg PO DAILY levothyroxine 50 mcg PO DAILY methotrexate sodium 20 mg PO QWEEK metoprolol succinate ER 75 mg (1.5 x 50 mg) PO DAILY nitrofurantoin monohyd/m-cryst 100 mg (Macrobid) 100 mg PO Q12H 7 days omeprazole 20 mg PO DAILY trazodone 100 mg (2 x 50 mg) PO BEDTIME PRN valsartan-hydrochlorothiazide 320-12.5 mg 1 tab PO DAILY vit C,E,Zn,Hs-nyegs9-uhj-zeax 250-2.5-0.5 mg caps PO vitamins A,C,Q-foxt-zqpghp (PreserVision AREDS) PO Tobacco use date assessed: 06/23/24 Dental Screening Dental Screen Date: 04/23/24 HPI 2 month follow up HPI Details Patient presents for the follow-up of hypertension hyperlipidemia hypothyroidism. She was found to have a positive UA for UTI without symptoms and starting Macrobid. Patient denies urinary incontinence PFSH Surgical History H/O breast biopsy Family History Father Heart problem Social History Household Members Other:: lives alone, daughter lives in [place], son lives in [place], Housing: House Alcohol intake: never Patient Tobacco Use Status: Never used Tobacco e-Cigarette/Vaping Use: Never Used service: No Current occupational status: retired Current occupational exposures/hazards: No Cognitive needs: No Hearing needs: No Vision needs: Yes Questionnaire Thrive Questionnaire Date Thrive assessed: 04/18/24 I am a: Patient What is your living situation today?: I have a steady place to live Within the past 12 months, did the food you bought not last and you didn't have the money to get more?: Never true Within the past 12 months, did you worry whether your food would run out before you got money to buy more?: Never true Do you have trouble paying for medicines?: No Do you have trouble getting transportation to medical appointments?: No Do you have trouble paying your heating and electricity bill?: No Do you have trouble taking care of your child, family member or friend?: No Do you have trouble with day-to-day activities such as bathing, preparing meals, shopping, managing finances, etc.?: No Are you currently unemployed and looking for a job?: No Are you interested in more education?: No Please select the resources that you would like help with: None Currently or been in a relationship where the following occur: No concerns reported THRIVE Score: 0 RONDA-7 AMB Questionnaire RONDA-7 Date RONDA - 7 assessed: 04/23/24 Source: Developed by Drs. Fredi Lambert, Kamila Winter, Jeanmarie Kevin and colleagues, with an educational clary from [email or web address] Review of Systems Const All systems reviewed & are unremarkable except as noted in HPI and below ENT Reports no additional complaints Card Reports no additional complaints Resp Reports no additional complaints GI Reports no additional complaints Reports no additional complaints Physical exam (Primary Care) Vital Signs: Last Vital Signs Pulse 55 06/23/24 09:30 BP 110/70 06/23/24 09:30 Pulse Ox 99 06/23/24 09:30 Oxygen Delivery Method Room Air 06/23/24 09:30 BMI result Body Mass Index 23.6 Tobacco/Smoking Status: Tobacco use Status Tobacco use date assessed 06/23/24 06/23/24 09:34 Patient Tobacco Use Status Never used Tobacco 06/23/24 09:34 e-Cigarette/Vaping Use Never Used 06/23/24 09:34 Thrive Assessment: Date of Thrive Assessment Date Thrive assessed 04/18/24 06/23/24 09:34 Currently or been in a relationship where the following occur: No concerns reported Const General: no acute distress HENMT Face and sinus: Yes normal facial exam Neck Neck: Yes supple Resp Effort & Inspection: normal respiratory effort Auscultation: clear to auscultation bilaterally Cardio Rhythm: regular rhythm Heart sounds: S1 normal heart sound present and S2 normal heart sound present GI Palpation (GI): Soft to palpation Percussion: Yes normal to percussion Auscultation: normal bowel sounds Coding Level of Care Code Est Pt Level 4 (03492) Diagnoses UTI (urinary tract infection) N39.0 A-fib I48.91 Hyperlipidemia E78.5 HTN (hypertension) I10 Hypothyroid E03.9 Assessment & Plan Assessment & Plan (1) UTI (urinary tract infection): Code(s): N39.0 - Urinary tract infection, site not specified Category: Medical Plan: Continue Macrobid check urine culture in 2 weeks (2) A-fib: Comment: 1 episode 2020 f/u [facility], Dr. Horton Code(s): I48.91 - Unspecified atrial fibrillation Category: Medical Plan: On Eliquis amiodarone and metoprolol. Metoprolol will be decreased to 50 mg from 75 because of low blood pressure and low heart rate in low 50s (3) Hyperlipidemia: Code(s): E78.5 - Hyperlipidemia, unspecified Category: Medical Plan: Continue statin (4) HTN (hypertension): Code(s): I10 - Essential (primary) hypertension Category: Medical Plan: Decrease metoprolol to 50 mg a day and continue the rest of the medications. Follow-up in 3 months with a fasting labs (5) Hypothyroid: Code(s): E03.9 - Hypothyroidism, unspecified Category: Medical Plan: Continue levothyroxine Orders: Orders Urine Culture 2 Weeks N39.0 - Urinary tract infection, site not specified Lipid Panel 3 Months E78.5 - Hyperlipidemia, unspecified, I10 - Essential (primary) hypertension, I48.91 - Unspecified atrial fibrillation TSH reflex Free T4 3 Months E78.5 - Hyperlipidemia, unspecified, I10 - Essential (primary) hypertension, I48.91 - Unspecified atrial fibrillation Comprehensive [place]. Panel Fast 3 Months E78.5 - Hyperlipidemia, unspecified, I10 - Essential (primary) hypertension, I48.91 - Unspecified atrial fibrillation Medications: Changed From metoprolol succinate ER 75 mg (1.5 x 50 mg) PO DAILY 135 tabs 3RF To metoprolol succinate ER 50 mg PO DAILY 90 tabs 3RF
== END 2024-06-23 10:18 | disposition home or self-care (01) ==
PROVIDERS: PCP Internal Medicine; Visit Provider Internal Medicine
DX: N39.0 Urinary tract infection, site not specified (principal); I48.91 Unspecified atrial fibrillation; E78.5 Hyperlipidemia, unspecified; I10 Essential (primary) hypertension; E03.9 Hypothyroidism, unspecified

== ENCOUNTER → 2024-06-23 09:26 | Outpatient (BNVA) | payer MEDICARE, SELFPAY | PROVIDERS: PCP Internal Medicine; Visit Provider Internal Medicine | DX: N39.0 Urinary tract infection, site not specified (principal); I48.91 Unspecified atrial fibrillation; E78.5 Hyperlipidemia, unspecified; I10 Essential (primary) hypertension; E03.9 Hypothyroidism, unspecified | CPT/HCPCS: 99212 ==

== ENCOUNTER 2024-07-07 09:08 | Outpatient (REF) | payer MEDICARE, SELFPAY | END 2024-07-07 09:09 | disposition home or self-care (01) | LOC: HO.HMGCLDS 09:08 | PROVIDERS: PCP Internal Medicine; Visit Provider Internal Medicine | DX: R39.0 Extravasation of urine (principal) | CPT/HCPCS: 87086 ==

== ENCOUNTER 2024-09-30 07:45 | Outpatient (REF) | payer MEDICARE, SELFPAY ==
[2024-09-30 10:46] LABS: Albumin Level 3.5 g/dL (3.5-5.0); Anion Gap 9 (12-20); Aspartate Amino Transferase 18 U/L (5-31); Blood Urea Nitrogen 16 mg/dL (9-16); Calcium 8.7 mg/dL (8.4-10.2); Carbon Dioxide 27 mmol/L (22-29); Chloride 112 mmol/L (96-108); Cholesterol 117 mg/dL (<200); Estimated Glomerular Filt Rate > 60; Glucose Fasting 96 mg/dL (60-99); HDL Cholesterol 49 mg/dL (>40); LDL Cholesterol Calculated 56 mg/dL (<100); Potassium 4.2 mmol/L (3.3-5.1); Sodium 144 mmol/L (135-145); Triglycerides 61 mg/dL (<150)
[2024-09-30 10:54] LABS: TSH reflex Free T4 1.82 uIU/mL (0.32-4.0)
[2024-09-30 11:15] LABS: Alanine Aminotransferase 12 U/L (0-31); Alkaline Phosphatase 72 U/L (39-117)
== END 2024-09-30 07:46 | disposition home or self-care (01) ==
LOC: HO.HMGCLDS 07:45
PROVIDERS: PCP Internal Medicine; Visit Provider Internal Medicine
DX: I48.91 Unspecified atrial fibrillation (principal); E78.5 Hyperlipidemia, unspecified; I10 Essential (primary) hypertension
CPT/HCPCS: 36415; 80053; 80061; 84443

== ENCOUNTER 2024-10-07 09:54 | Outpatient (AMB) | payer MEDICARE, SELFPAY ==
[2024-10-07 10:13] VITALS: BP 106/68; PULSE 60; TEMP 36.7; O2SAT 96; BMI 24.4
--- NOTE | 2024-10-07 10:13 | A.OFFPC_ITS ---
Vital Signs 10/07/24 10:13 Height 5 ft 1 in Weight 129 lb BMI 24.4 BP 106/68 Blood Pressure Location Rt brachial Position Sitting Pulse 60 Pulse Source Pulse Oximeter Temp 98.0 F Temp Source Oral Pulse Oximetry (%) 96 Oxygen Delivery Method Room Air Intake Visit Reasons: 3 months f/up Intake Note: Pt is here today for 3 months follow up visit. Allergies No Known Allergies Allergy (Verified 10/07/24 10:32) Medication List - Last Reconciled 10/07/24 by Rakel Rodriguez MD amiodarone 200 mg PO DAILY amlodipine 5 mg PO DAILY atorvastatin 40 mg PO DAILY cholecalciferol (vitamin D3) 50 mcg PO DAILY Eliquis (apixaban) 5 mg PO BID NS folic acid 0.8 mg PO DAILY levothyroxine 25 mcg PO DAILY methotrexate sodium 20 mg PO QWEEK metoprolol succinate ER 50 mg PO DAILY omeprazole 20 mg PO DAILY trazodone 100 mg (2 x 50 mg) PO BEDTIME PRN valsartan-hydrochlorothiazide 320-12.5 mg 1 tab PO DAILY vit C,E,Zn,Ps-svody5-xdh-zeax 250-2.5-0.5 mg caps PO vitamins A,C,P-twva-xghwty (PreserVision AREDS) PO Tobacco use date assessed: 10/07/24 Fall risk assessment: No Falls in past year Last assessed Fall Risk: 10/07/24 Dental Screening Dental Screen Date: 10/07/24 Did you have a dental visit in the last 12 months?: Yes Did you have a dental problem in the last 6 months where you did not have access to dental care?: No Was dental information given to patient?: Patient has dentist HPI 3 months f/up HPI Details Patient presents for the follow-up on hypertension hyperlipidemia paroxysmal AFib rhythm controlled on amiodarone anticoagulated on Eliquis and hypothyroidism. PFSH Surgical History H/O breast biopsy Family History Father Heart problem Social History Household Members Other:: lives alone, daughter lives in [place], son lives in [place], Housing: House Alcohol intake: never Patient Tobacco Use Status: Never used Tobacco e-Cigarette/Vaping Use: Never Used service: No Current occupational status: retired Current occupational exposures/hazards: No Cognitive needs: No Hearing needs: No Vision needs: Yes Questionnaire PHQ-9 Over the last 2 weeks, how often have you been bothered by any of the following problems? 1. Little interest or pleasure in doing things: not at all 2. Feeling down, depressed, or hopeless: not at all 3. Trouble falling or staying asleep, or sleeping too much: not at all 4. Feeling tired or having little energy: not at all 5. Poor appetite or overeating: not at all 6. Feeling bad about yourself - or that you are a failure or have let yourself or your family down: not at all 7. Trouble concentrating on things, such as reading the newspaper or watching television: not at all 8. Moving or speaking so slowly that other people could have noticed. Or the opposite - being so fidgety or restless that you have been moving around a lot more than usual: not at all 9. Thoughts that you would be better off or of hurting yourself in some way: not at all Total score: 0 Depression Screening Interpretation: Negative Depression Screening Done: Yes 82486 - PHQ-9 Billing: Yes Source: Developed by Drs. Fredi Lambert, Kamila Winter, Jeanmarie Kevin and colleagues, with an educational clary from [employer] Thrive Questionnaire Date Thrive assessed: 10/07/24 I am a: Patient What is your living situation today?: I have a steady place to live Within the past 12 months, did the food you bought not last and you didn't have the money to get more?: Never true Within the past 12 months, did you worry whether your food would run out before you got money to buy more?: Never true Do you have trouble paying for medicines?: No Do you have trouble getting transportation to medical appointments?: No Do you have trouble paying your heating and electricity bill?: No Do you have trouble taking care of your child, family member or friend?: No Do you have trouble with day-to-day activities such as bathing, preparing meals, shopping, managing finances, etc.?: No Are you currently unemployed and looking for a job?: No Are you interested in more education?: No Please select the resources that you would like help with: None Currently or been in a relationship where the following occur: No concerns reported THRIVE Score: 0 AUDIT C Alcohol Use Questionnaire (AUDIT-C) 1. How often do you have a drink containing alcohol?: Never 3. How often do you have six or more drinks on one occasion?: Never Total Score: 0 RONDA-7 AMB Questionnaire RONDA-7 Date RONDA - 7 assessed: 10/07/24 Feeling nervous, anxious, or on edge: 0 = Not at all Not being able to stop or control worryin = Not at all Worrying too much about different things: 0 = Not at all Trouble relaxin = Not at all Being so restless that it is hard to sit still: 0 = Not at all Becoming easily annoyed or irritable: 0 = Not at all Feeling afraid as if something awful might happen: 0 = Not at all Total RONDA-7 score (0-4 normal; 5-9 mild; 10-14 moderate; 15-21 severe): 0 Source: Developed by Drs. Fredi Lambert, Kamila Winter, Jeanmarie Kevin and colleagues, with an educational clary from [employer] RONDA-7 Assessment Billing RONDA-7 Assessment Tool: RONDA-7 Assessment 00831 Review of Systems Const All systems reviewed & are unremarkable except as noted in HPI and below Eyes Reports no additional complaints ENT Reports no additional complaints Card Reports no additional complaints Resp Reports no additional complaints GI Reports no additional complaints Reports no additional complaints Physical exam (Primary Care) Vital Signs: Last Vital Signs Temp 98.0 F 10/07/24 10:13 Pulse 60 10/07/24 10:13 BP 106/68 10/07/24 10:13 Pulse Ox 96 10/07/24 10:13 Oxygen Delivery Method Room Air 10/07/24 10:13 BMI result Body Mass Index 24.4 Tobacco/Smoking Status: Tobacco use Status Tobacco use date assessed 10/07/24 10/07/24 10:38 Patient Tobacco Use Status Never used Tobacco 10/07/24 10:38 e-Cigarette/Vaping Use Never Used 10/07/24 10:13 PHQ-9: PHQ-9 Score PHQ-9: Total score 0 10/07/24 10:38 Depression Screening Interpretation: Negative Thrive Assessment: Date of Thrive Assessment Date Thrive assessed 10/07/24 10/07/24 10:38 Currently or been in a relationship where the following occur: No concerns reported Const General: no acute distress HENMT Ears: hearing grossly normal bilaterally Eyes General: appearance normal, both eyes and all related structures Neck Neck: Yes no lymphadenopathy and Yes supple Resp Effort & Inspection: normal respiratory effort Auscultation: clear to auscultation bilaterally Cardio Rhythm: regular rhythm Heart sounds: S1 normal heart sound present and S2 normal heart sound present GI Inspection: Yes normal to inspection Palpation (GI): Soft to palpation Percussion: Yes normal to percussion Auscultation: normal bowel sounds Coding Level of Care Code Est Pt Level 4 (78970) Complex EM visit Add On G2211 Diagnoses Hypothyroid E03.9 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 Horton Code(s): I48.91 - Unspecified atrial fibrillation Category: Medical Plan: rhythm controlled on amiodarone and anticoagulated on Eliquis. Medications: New levothyroxine 25 mcg PO DAILY 90 tabs 3RF
== END 2024-10-07 11:13 | disposition home or self-care (01) ==
PROVIDERS: PCP Internal Medicine; Visit Provider Internal Medicine
DX: E03.9 Hypothyroidism, unspecified (principal); M05.20 Rheumatoid vasculitis with rheumatoid arthritis of unspecified site; I10 Essential (primary) hypertension; E78.5 Hyperlipidemia, unspecified; I48.91 Unspecified atrial fibrillation

== ENCOUNTER → 2024-10-07 09:54 | Outpatient (BNVA) | payer MEDICARE, SELFPAY | PROVIDERS: PCP Internal Medicine; Visit Provider Internal Medicine | DX: E03.9 Hypothyroidism, unspecified (principal); M05.20 Rheumatoid vasculitis with rheumatoid arthritis of unspecified site; I10 Essential (primary) hypertension; E78.5 Hyperlipidemia, unspecified; I48.91 Unspecified atrial fibrillation | CPT/HCPCS: 96127; 99212 ==

== ENCOUNTER 2024-11-18 12:57 | Outpatient (REF) | payer MEDICARE, SELFPAY ==
--- OUTSIDE RECORDS SUMMARY | 2024-11-18 15:40 | XMS_ITS | Clinical Summary ---
Author Organization [facility] [employer] Address [address] [facility] [address] [place] [place] [address] Phone Care Team Providers Care Outpatient Program Coordinator Name Role Phone Rakel Rodriguez MD Primary Care Provider [phone] Allergies Active Allergy Reactions Criticality Noted Date Comments Amoxicillin 11/08/2021 Clavulanic Acid 11/08/2021 Doxycycline Hyclate Nausea And Vomiting 022 Medications amiodarone (PACERONE) 200 mg tablet Take 200 mg by mouth daily. Active apixaban (ELIQUIS) 5 mg tablet Take 1 tablet (5 mg total) by mouth 2 (two) times a day. Active atorvastatin (LIPITOR) 40 mg tablet Take 40 mg by mouth daily. Active CALCIUM CARBONATE-VITAM IN D3 ORAL Calcium Carbonate-Rosey min D (CALCIUM-VITAM IN D) 600-125 MG-UNIT Tab Take by mouth. Active folic acid (FOLVITE) 1 mg tablet Take 800 mcg by mouth daily. Active methotrexate 2.5 mg tablet Take 8 tablets (20 mg total) by mouth 1 (one) time per week Active metoprolol succinate (TOPROL-XL) 50 mg 24 hr tablet Take 1.5 tablets (75 mg total) by mouth 1 (one) time each day. Active vit C/E/Zn/coppr/nathalie tein/zeaxan (PRESERVISION AREDS-2 ORAL) Take by mouth 1 (one) time each day. Active omeprazole (PriLOSEC) [address] capsule Take 20 mg by mouth daily. Active traZODone (DESYREL) 50 mg tablet Take 2 Tablets by mouth at bedtime. Active NON FORMULARY VIT D-VIT E-SAFFLOWER OIL EX Apply topically Active amLODIPine (NORVASC) 5 mg tablet Take 1 tablet (5 mg total) by mouth 1 (one) time each day. Active levothyroxine (SYNTHROID, LEVOTHROID) 25 mcg tablet Take 1 tablet (25 mcg total) by mouth 1 (one) time each day before breakfast. Active valsartan-hydro CHLOROthiazide (DIOVAN-HCT) 160-12.5 mg per tablet Take 1 tablet by mouth 1 (one) time each day. Active Active Problems Problem Noted Date Diagnosed Date Encounter for monitoring amiodarone therapy 09/16 Assessment & Plan (10/11/2024 10:03 AM EST): Amiodarone is intended for use only in patients with indicated life-threatening arrhythmias because its use is accompanied by substantial toxicity. We discussed the risks including risk for pulmonary toxicity, hepatotoxicity, risk for worsening arrhythmias and risk for thyroid impairment. We will monitor the patient for these conditions throughout treatment. Patient was also warned about the risk for photosensitivity and solar dermatitis. Patient was advised to wear sunscreen and wear protective clothing including a hat when in direct sunlight. Will update lab work including TSH, and CMP. She will continue her current dose of levothyroxine per her PCP. Up to date PFTs from February 2024. Aneurysm of ascending aorta 08/13/2023 Overview (08/17/2024): Last Assessment & Plan: Patient has a history of mild dilation of the ascending aorta seen on echocardiogram September 2021. Repeat echocardiogram July 2023 showed no change in ascending aorta at 3.8 cm. We will continue to monitor with periodic echocardiograms to evaluate for progression. Assessment & Plan (10/11/2024 10:03 AM EST): Mild dilation of aorta July 2023 at 3.8. Will update an echocardiogram to reevaluate for progression. Orders: Transthoracic echocardiogram (TTE) complete with PRN contrast, bubble, strain, and 3D order panel; Future Atrial fibrillation 11/12/2021 Overview (08/17/2024): Last Assessment & Plan: The patient has a history of atrial fibrillation and continues on rhythm control therapy with amiodarone and rate control therapy with metoprolol. In the past, the patient was evaluated by electrophysiology and it was agreed to continue antiarrhythmic therapy with amiodarone versus the possibility of an ablation. The patient has been maintained on medical therapy without any cardiac complaints today. She has a [id number] score of 4 and continues on anticoagulation therapy with apixaban 5 mg orally twice daily based on her age, weight, and kidney function. No excessive bruising or bleeding reported. We will continue current therapies. Assessment & Plan (10/11/2024 10:03 AM EST): Patient has a history of atrial fibrillation and continues on rhythm control therapy with amiodarone and rate control therapy with beta-shayy. She denies any perception of atrial fibrillation or palpitations or dizziness. Her heart rate is well-controlled today. The patient was evaluated by electrophysiology in the past and we discussed continuing antiarrhythmic therapy with amiodarone versus possibility of an ablation and at this point, the patient would like to continue medical therapy. She continues on apixaban 5 mg orally twice daily based on her age, weight, and kidney function for anticoagulation. She denies any excessive bleeding or bruising. Will continue current therapies. Orders: ECG 12 lead Comprehensive metabolic panel; Future Thyroid stimulating hormone with reflex free T4; Future Transthoracic echocardiogram (TTE) complete with PRN contrast, bubble, strain, and 3D order panel; Future HTN (hypertension) 11/08/2021 Overview (08/17/2024): Last Assessment & Plan: Patient has a history of arterial hypertension. Her blood pressure is noted to be well-controlled today. She will continue her current antihypertensive medication regimen as prescribed. Assessment & Plan (10/11/2024 10:03 AM EST): Patient's blood pressure is well-controlled today with a reading 110/78. She is unsure of the doses of her amlodipine and losartan and will verify with us when she gets home. At this point, I recommend she continue her current regimen as her blood pressures have been well-controlled. Mixed hyperlipidemia 11/08/2021 Overview (08/17/2024): Last Assessment & Plan: Patient has a history of hyperlipidemia. She will continue current dose of atorvastatin as prescribed. We will update a new fasting lipid panel to reassess her lipid control. Assessment & Plan (10/11/2024 10:03 AM EST): Patient has a history of hyperlipidemia and continues on statin therapy with atorvastatin as prescribed. I have reviewed with the patient the importance of a heart healthy lifestyle which includes eating a low-fat low-salt diet, getting regular exercise, maintaining a healthy weight, not smoking, and following up with routine medical care. Peripheral venous insufficiency 11/08/2021 Encounters Date Type Department Care Team Description 10/11/2024 9:40 AM EST Office Visit [facility] [address] [facility] [address] [place] [address] Jayshree Ribera NP Atrial fibrillation, unspecified type (CMS/HCC) (Primary Dx); Aneurysm of ascending aorta without rupture (CMS/HCC); Primary hypertension; Encounter for monitoring amiodarone therapy; Mixed hyperlipidemia from Last 3 Months Surgical History Surgery Date Site/Laterality Comments BREAST LUMPECTOMY Right PROCEDURE: HISTORICAL BREAST LUMPECTOMY Medical History Medical History Date Comments Rheumatoid arthritis (CMS/HCC) D X:Rheumatoid arthritis (HCC) Spinal stenosis of lumbar region DX:Spinal stenosis of lumbar region Malaise and fatigue DX:Malaise a nd fatigue Migraine without aura DX:Migrain e without aura Peripheral venous insufficiency DX:Peripheral venous insufficiency Gastric reflux DX:Gastric reflu x Depression DX:Depression Insomnia DX:Insomnia Osteoarthritis DX:Osteoarthriti s Hyperlipidemia DX:Hyperlipidemi a Family History Medical History Relation Name Comments Other: cardiac problems Brother Other: cardiac problems Father Other: pacemaker Father No Known Problems Mother Relation Name Status Comments Brother Father Mother Social History Tobacco Use Types Packs/Day Years Used Date Smoking Tobacco: Never Smokeless Tobacco: Never Alcohol Use Standard Drinks/Week Comments Never 0 (1 standard drink = 0.6 oz pur e alcohol) Comments Unknown Sex and Gender Information Value Date Recorded Sex Assigned at Not on file Legal Sex Female 9:10 PM EST Gender Identity Not on file Sexual Orientation Not on file Obstetrics History Last Filed Vital Signs Vital Sign Reading Time Taken Comments Blood Pressure 110/78 10/11/2024 9:28 AM EST Pulse 56 10/11/2024 9:28 AM EST Temperature - - Respiratory Rate - - Oxygen Saturation 94% 10/11/2024 9:28 AM EST Inhaled Oxygen Concentration - - Weight 57.2 kg (126 lb) 10/11/2024 9:28 AM EST Height 160 cm (5' 3 ) 10/11/2024 9:28 AM EST Body Mass Index 22.32 10/11/2024 9:28 AM EST Plan of Treatment Upcoming Encounters Date Type Department Care Team (Late st Contact Info) Description 12/13/2024 9:00 AM EDT Ancillary Procedure [facility] Cardiology [facility] [address] [place] [address] 04/12/2025 9:50 AM EDT Office Visit [facility] Cardiology [facility] [address] [place] [address] Sajan Cho MD [address] [place] [address] [place] [address] Health Maintenance Due Date Last Done Comments DTaP,Tdap,and Td Vaccines (1 - Tdap) 1964 Zoster Vaccines (2 of 3) 08/21/2012 06/26/2012 Cholesterol Screening (Lipid Panel) 08/25/2022 Depression Screening 08/25/2022 Falls Risk Assessment 08/25/2022 Hepatitis C Screening 08/25/2022 Medicare Annual Wellness Visit 08/25/2022 Osteoporosis Screening (Bone Density Screening) 08/25/2022 Social Influencers of Health Screening 08/25/2022 RSV Immunization Patients 60+ Years Old (1 - 1-dose 75+ series) 2022 Hypertension/CHF/CAD Annual BMP Blood Test 10/11/2025 10/11/2024, 04/09/2024, 12/03/2023, Additional history exists Pneumococcal Vaccine: 50+ Years Completed 06/07/2019, 06/12/2016 COVID-19 Vaccine Completed 06/09/2024, 03/2023, 06/26/2022, Additional history exists Influenza Vaccine Completed 06/09/2024, , 06/21/2022, Additional history exists HIB Vaccines Aged Out No longer eligi ble based on patient's age to complete this topic HPV Vaccines Aged Out No longer eligi ble based on patient's age to complete this topic Hepatitis A Vaccines Aged Out No long er eligible based on patient's age to complete this topic Hepatitis B Vaccines Aged Out No long er eligible based on patient's age to complete this topic IPV Vaccines Aged Out No longer eligi ble based on patient's age to complete this topic MMR Vaccines Aged Out No longer eligi ble based on patient's age to complete this topic Meningococcal ACWY Vaccine Aged Out N o longer eligible based on patient's age to complete this topic Meningococcal B Vacine Aged Out No lo nger eligible based on patient's age to complete this topic RSV Immunization Patients Under 20 months Aged Out No longer eligible based on patient's age to complete this topic Varicella Vaccines Aged Out No longer eligible based on patient's age to complete this topic Procedures Procedure Name Priority Date/Time Associated Diagnosis Comments ..TSH REFLEX TO FREE T4 Routine 10/11/2024 10:11 AM EST COMPREHENSIVE METABOLIC PANEL Routine 10/11/2024 10:11 AM EST ECG 12-LEAD Routine 10/11/2024 10:03 AM EST Atrial fibrillation, unspecified type (CMS/HCC) from Last 3 Months Results * TSH reflex to free T4 (10/11/2024 10:11 AM EST) Thyroid Stimulating Hormone (TSH) 1.460 0.450 - 4.500 uIU/mL [facility] 1 10/11/2024 10:1 1 AM EST 10/11/2024 Narrative [facility] 1 - 10/12/2024 3:06 AM EST Performed at: ??01 - [facility] [address] ??[id number] Cross Country/Track And Field Coach: Kitty Morocho MD, Phone: ??[phone] Jayshree A Bacilio DIE CAST TECHNICIAN LAB BLOOD ORDERABLES Final Result [facility] 1 * (ABNORMAL) Comprehensive metabolic panel (10/11/2024 10:11 AM EST) Pathologist [facility] Glucose 98 70 - 99 mg/dL [facility] 1 Blood Urea Nitrogen (BUN) 17 8 - 27 mg/dL [facility] 1 Creatinine 0.85 0.57 - 1.00 mg/dL [facility] 1 eGFR 71 >59 mL/min/1. 73 [facility] 1 BUN/Creatinine Ratio 20 12 - 28 [facility] 1 Sodium 145(H) 134 - 144 mmol/L [facility] 1 Potassium 4.6 3.5 - 5.2 mmol/L [facility] 1 Chloride 106 96 - 106 mmol/L [facility] 1 Carbon Dioxide 22 20 - 29 mmol/L [facility] 1 Calcium 9.4 8.7 - 10.3 mg/dL [facility] 1 Protein Total 6.2 6.0 - 8.5 g/dL [facility] 1 Albumin 3.9 3.8 - 4.8 g/dL [facility] 1 Globulin Total 2.3 1.5 - 4.5 g/dL [facility] 1 Bilirubin Total 1.0 0.0 - 1.2 mg/dL [facility] 1 Alkaline Phosphatase 84 44 - 121 IU/L [facility] 1 Aspartate aminotransferase??(A ST) 17 0 - 40 IU/L [facility] 1 Alanine Aminotransferase (ALT) 15 0 - 32 IU/L [facility] 1 10/11/2024 10:1 1 AM EST 10/11/2024 Narrative [facility] 1 - 10/12/2024 3:06 AM EST Performed at: ??01 - [facility] [address] ??[id number] Cross Country/Track And Field Coach: Kitty Morocho MD, Phone: ??[phone] Jayshree Ribera DIE CAST TECHNICIAN LAB BLOOD ORDERABLES Final Result [facility] * ECG 12 lead (10/11/2024 10:03 AM EST) [facility] Ventricular Rate ECG 56 BPM GEMUSE Atrial Rate 56 BPM GEMUSE P-R Interval 172 ms GEMUSE QRS Duration 100 ms GEMUSE Q-T Interval 458 ms GEMUSE QTc 441 ms GEMUSE P Wave [place] -6 degrees GEMUSE R [place] 27 degrees GEMUSE T [place] 10 degrees GEMUSE ECG Interpretation Sinus bradycardia Inferior infarct , age undetermined Abnormal ECG no significant change from prior ECG 02/02/2024 Confirmed by ERMIAS REDDY ([id number]) on 10/11/2024 11:05:01 AM GEMUSE 10/11/2024 9:36 AM EST 10/11/2024 11:05 AM EST Jayshree Ribera NP ECG ORDERABLES Edited Resu lt - Final GEMUSE from Last 3 Months Insurance MEDICARE Care Teams Outpatient Program Coordinator Relationship Specialty Start Date End Date Rakel Rodriguez MD [address] [place] [address] PCP - General Internal Medicine 10/11/24
[2024-11-18 16:42] LABS: Hematocrit 37.8 % (37.0-47.0); Hemoglobin 12.3 g/dl (12.0-16.0); Mean Corpuscular HGB Conc 32.5 g/dl (31.0-35.0); Mean Corpuscular Hemoglobin 31.2 pg (27.0-33.0); Mean Corpuscular Volume 95.9 fL (80.0-98.0); Mean Platelet Volume 10.1 fL (9.4-12.3); Platelet Count 267 X10*3/uL (160-400); Red Blood Count 3.94 X10*6/uL (4.20-5.50); Red Cell Distribution Width 15.2 % (11.0-16.0); White Blood Count 6.9 X10*3/uL (4.8-10.8)
== END 2024-11-18 12:58 | disposition home or self-care (01) ==
LOC: HO.HMGCLDS 12:57
PROVIDERS: PCP Internal Medicine; Visit Provider Internal Medicine Rheumatology
DX: Z51.81 Encounter for therapeutic drug level monitoring (principal); Z79.631 Long term (current) use of antimetabolite agent
CPT/HCPCS: 36415; 85027

== ENCOUNTER 2025-01-14 12:13 | Outpatient (REF) | payer MEDICARE, SELFPAY ==
--- OUTSIDE RECORDS SUMMARY | 2025-01-14 12:53 | XMS_ITS | Clinical Summary ---
Author Organization [facility] [employer] Address [address] [facility] [address] [place] [address] Phone Care Team Providers Care Candy Department Manager Name Role Phone Rakel Rodriguez MD Primary Care Provider [phone] Allergies Active Allergy Reactions Criticality Noted Date [...] from February 2024. Aneurysm of ascending aorta (CMS/HCC V24) 2022 Overview (08/17/2024): Last Assessment & Plan: Patient [...] and 3D order panel; Future Atrial fibrillation (CMS/HCC V24, CMS/HCC V28) 0 11/12/2021 Overview (08/17/2024): Last Assessment & Plan: [...] any cardiac complaints today. She has a [id number] score of 4 and continues on anticoagulation [...] Encounters Date Type Department Care Team Description 12/13/2024 9:00 AM EDT Ancillary Procedure [facility] - [address] [place] [address] Atrial fibrillation, unspecified type (CMS/[facility] V24, CMS/[facility] V28); Aneurysm of ascending aorta without rupture ([facility] V24) from Last 3 Months Surgical History Surgery Date Site/Laterality Comments BREAST LUMPECTOMY Right PROCEDURE: HISTORICAL BREAST LUMPECTOMY Medical History Medical History Date Comments Rheumatoid arthritis ([facility]/ C V24, [facility] V28) DX:Rheumatoid arthritis ([facility] ) Spinal stenosis of lumbar region DX:Spinal stenosis [...] Sign Reading Time Taken Comments Blood Pressure 114/78 12/13/2024 9:42 AM EDT Pulse 56 10/11/2024 9:28 AM EST Temperature - - Respiratory Rate - - Oxygen Saturation 94% 10/11/2024 9:28 AM EST Inhaled Oxygen Concentration - - Weight 58.5 kg (129 lb) 12/13/2024 9:42 AM EDT Height 160 cm (5' 3 ) 12/13/2024 9:42 AM EDT Body Mass Index 22.85 12/13/2024 9:42 AM EDT Plan of Treatment Upcoming Encounters Date Type Department Care Team (Late st Contact Info) Description 04/12/2025 9:50 AM EDT Office Visit [facility] [address] [place] [address] Sajan Cho MD [address] [place] [address] [address] [place] [address] Health Maintenance Due Date Last Done Comments DTaP,Tdap,and Td Vaccines (1 - Tdap) 1964 Zoster Vaccines (2 of 3) 08/21/2012 06/26/2012 Cholesterol Screening (Lipid Panel) 08/25/2022 Depression Screening 08/25/2022 Falls Risk Assessment 08/25/2022 Hepatitis C Screening 08/25/2022 Medicare Annual Wellness Visit 08/25/2022 Osteoporosis Screening (Bone Density Screening) 08/25/2022 Social Influencers of Health Screening 08/25/2022 RSV Immunization Adult Patients (1 - 1-dose 75+ series) 2022 COVID-19 Vaccine (8 - Pfizer risk season) 2024 06/09/2024, 06/21/2023, 06/26/2022, Additional history exists Hypertension/CHF/CAD Annual BMP Blood Test 10/11/2025 10/11/2024, 04/09/2024, 12/03/2023, Additional history exists Pneumococcal Vaccine: 50+ Years Completed 06/07/2019, 06/12/2016 Influenza Vaccine Completed 06/09/2024, , 06/21/2022, Additional [...] age to complete this topic Meningococcal B Vaccine Aged Out No l onger eligible based on patient's age to complete this topic RSV Immunization Patients Under 20 months Aged Out No longer eligible based on patient's age to complete this topic Varicella Vaccines Aged Out No longer eligible based on patient's age to complete this topic Procedures Procedure Name Priority Date/Time Associated Diagnosis Comments COMPREHENSIVE METABOLIC PANEL Routine 10/11/2024 10:11 AM EST from Last 3 Months or Most Recently Relevant to Health Maintenance Results * (ABNORMAL) Comprehensive metabolic panel (10/11/2024 10:11 AM EST) Glucose 98 70 - 99 mg/dL [facility] [...] AM EST Performed at: ??01 - [facility] [address] ??[id number] Room Service Server: Kitty Morocho MD, Phone: ??[phone] Jayshree Ribera NP LAB BLOOD ORDERABLES Final Result [facility] 1 from Last 3 Months or Most Recently Relevant to Health Maintenance Insurance MEDICARE [facility] Care Teams Candy Department Manager Relationship Specialty Start Date End Date Rakel Rodriguez MD [address] [place] [id number] PCP - General Internal Medicine 10/11/24
== END 2025-01-14 12:14 | disposition home or self-care (01) ==
LOC: HO.MAMMO 12:13
PROVIDERS: PCP Internal Medicine; Visit Provider Internal Medicine
DX: Z12.31 Encounter for screening mammogram for malignant neoplasm of breast (principal)
CPT/HCPCS: 77063; 77067

== ENCOUNTER → 2025-01-14 12:30 | Outpatient (BNV) | payer MEDICARE, SELFPAY | PROVIDERS: PCP Internal Medicine; Visit Provider Internal Medicine | DX: Z12.31 Encounter for screening mammogram for malignant neoplasm of breast (principal) | CPT/HCPCS: 77063; 77067 ==

== ENCOUNTER 2025-01-31 12:56 | Outpatient (REF) | payer MEDICARE, SELFPAY ==
--- NOTE | ~2025-01-31 | US_ITS ---
EXAMINATION: MM DIAGNOSTIC DIGITAL BREAST TOMOSYNTHESIS, RIGHT Right limited ultrasound. CLINICAL INFORMATION: Call back from screening for developing focal asymmetry in the central inner breast far posterior depth. COMPARISON: Mammography: [facility] on PACS. TECHNIQUE: Digital breast tomosynthesis is performed in both the craniocaudal and mediolateral oblique views along with computer-aided detection (CAD). Synthesized 2D images are generated from the tomosynthesis. FINDINGS: The breasts are heterogeneously dense, which may obscure small masses (ACR BI-RADS breast composition Category c). Right: Developing asymmetry in the central inner breast persist on additional imaging projections. No suspicious calcifications or other abnormal findings. Targeted color Doppler ultrasound scanning from 9- 3:00 in the superior right breast and retroareolar region demonstrates a questionable hypoechoic area which could represent adjacent minimally complicated cysts with intervening breast tissue at 12:00 7 cm from nipple measuring 7 x 4 x 7 mm questionable correlate for developing focal asymmetry on mammography. US/US breast RT limited mamm only IMPRESSION: Hypoechoic genius area 12:00 7 cm from the nipple probable correlate for the developing focal asymmetry in the retroareolar region on mammography. Recommend histology with ultrasound-guided core needle biopsy at this time for confirmation. The findings and recommendations were discussed with the patient and the procedure will be scheduled. ASSESSMENT: BI-RADS BI-RADS 4 - Suspicious finding RECOMMENDATION: Biopsy recommended Results were provided to the patient at time of visit by the technologist. This patient's information was entered into a reminder system with a target due date for their next mammogram. Electronically signed by: Luma Tavarez DO 01/31/2025 03:48 PM EDT
--- OUTSIDE RECORDS SUMMARY | 2025-01-31 13:05 | XMS_ITS | Clinical Summary ---
Author Organization [facility] [employer] Address [address] [facility] [address] [place] [address] Phone Care Team Providers Care Information Security Associate Name Role Phone Rakel Rodriguez MD Primary Care Provider [phone] Allergies Active Allergy Reactions Criticality Noted Date [...] any cardiac complaints today. She has a [id number] score of 4 and continues on anticoagulation [...] Description 12/13/2024 9:00 AM EDT Ancillary Procedure [facility] - [address] [place] [address] Atrial fibrillation, unspecified type (CMS/[facility] V24, CMS/[facility] V28); Aneurysm of ascending aorta without rupture ([facility] V24) from Last 3 Months Surgical History Surgery Date Site/Laterality Comments BREAST LUMPECTOMY Right PROCEDURE: HISTORICAL BREAST LUMPECTOMY Medical History Medical History Date Comments Rheumatoid arthritis ([facility]/ C V24, [facility] V28) DX:Rheumatoid arthritis ([facility] ) Spinal stenosis of lumbar region DX:Spinal [...] Description 04/12/2025 9:50 AM EDT Office Visit [facility] [address] [place] [address] Sajan Cho MD [address] [place] [address] [address] [place] [address] Health Maintenance Due Date Last Done Comments [...] AM EST Performed at: ??01 - [facility] [address] ??[id number] Business Management Specialist: Kitty Morocho MD, Phone: ??[phone] Jayshree Ribera NP LAB BLOOD ORDERABLES Final Result [facility] 1 from Last 3 Months or Most Recently Relevant to Health Maintenance Insurance MEDICARE [facility] Care Teams Information Security Associate Relationship Specialty Start Date End Date Rakel Rodriguez MD [address] [facility] [place] [phone] PCP - General Internal Medicine 10/11/24
== END 2025-01-31 12:57 | disposition home or self-care (01) ==
LOC: HO.MAMMO 12:56
PROVIDERS: PCP Internal Medicine; Visit Provider Internal Medicine
DX: N64.89 Other specified disorders of breast (principal)
CPT/HCPCS: 76642; 77061; 77065

== ENCOUNTER → 2025-01-31 13:15 | Outpatient (BNV) | payer MEDICARE, SELFPAY | PROVIDERS: PCP Internal Medicine; Visit Provider Internal Medicine | DX: N63.11 Unspecified lump in the right breast, upper outer quadrant (principal); N60.11 Diffuse cystic mastopathy of right breast | CPT/HCPCS: 76642; 77065; G0279 ==

== ENCOUNTER 2025-02-15 08:44 | Outpatient (REF) | payer MEDICARE, SELFPAY ==
--- OUTSIDE RECORDS SUMMARY | 2025-02-15 09:14 | XMS_ITS | Patient Health Record ---
[facility] Address [address] [place] [address] Care Team Providers Care Certified Registered Locksmith Name Role Phone Alec Sanford MD Primary Care Provider Unavailab Erik Horowitz Unavailable [phone] Reason For Referral No Information Medications Medication SIG (Take, Route, Frequency, Duration) Notes Start Date End Date Status Methotrexate 2.5 MG Orally for 30 day(s) Active Propranolol HCl 40 MG 1 tablet Orally On ce a day for 30 day(s) Active Folic Acid 1 MG 1 tablet Orally Once a day for 30 day(s) Active Fosamax 70 MG 1 tablet Orally Once a day for 30 day(s) Active Vitamin D 2000 UNIT Orally Once a day Active Exforge 10 MG 1 tablet Orally Once a day for 30 day(s) Active Multivitamins as directed Orally Active Caltrate 600+D 600 MG-UNIT 1 tablet with food Orally Once a day for 30 day(s) Active Simvastatin 40 MG 1 tablet every eveni ng Orally Once a day for 30 day(s) Active traZODone HCl 50 MG 1 tablet at bedtime Orally Twice a day for 30 day(s) Active Omeprazole 20 MG 1 capsule Orally Onc e a day for 30 day(s) Active Problems Problem Type SNOMED Code ICD Code Onset Dates Problem Status W/U Status Risk Notes Problem Onychomycosis (479103941) Onychomycosis (110.1) Active confirmed Problem Pain in limb (81451174) Pain in Limb (729.5) Active confirmed Problem Ingrowing nail (607142311) Ingrowing Nail (703.0) Active confirmed Plan Of Treatment Pending Test Test Name Order Date [id number] NAIL, 6 OR MORE 01/06/2012 [id number] NAIL, 6 OR MORE 03/06/2012 [id number]-[id number] Plate 10/02/2011 84394- Debride <25 sq cm 10/24/2011 Insurance Providers Payer Name Payer Address Payer Phone Subscriber Number Group Number Insured Name Patient Relationship to Insured Coverage Start Date Coverage End Date [facility] [address] [place] [address] [id number] Cheyanne Amador Self - patient is the insured Medical (General) History Medical History History ICD Code anxiety Arthritis back, hip, knee pain Cholesterol headaches/migraines hypertension osteoporosis sciatica stomach ulcer chicken pox Surgical History Surgery Date(Month/Year) breast biopsy
[2025-02-15 10:20] LABS: MANUAL DIFF FLAG NO
[2025-02-15 10:45] LABS: Basophils Absolute Auto 0.1 X10*3/uL (0.0-0.2); Basophils Percent Auto 0.8 % (0-2); Eosinophils Absolute Auto 0.2 X10*3/uL (0.0-0.4); Eosinophils Percent Auto 3.2 % (0-4); Hematocrit 35.9 % (37.0-47.0); Hemoglobin 11.8 g/dl (12.0-16.0); Imm Gran Abs Auto 0.03 X10*3/uL (0.00-0.03); Imm Gran Pct Auto 0.5 % (0.0-0.4); Lymphocytes Absolute Auto 1.2 X10*3/uL (1.2-4.9); Lymphocytes Percent Auto 21.1 % (20-40); Mean Corpuscular HGB Conc 32.9 g/dl (31.0-35.0); Mean Corpuscular Volume 94.2 fL (80.0-98.0); Monocytes Absolute Auto 0.6 X10*3/uL (0.1-1.2); Monocytes Percent Auto 9.8 % (2-11); Neutrophils Absolute Auto 3.8 x10*3/uL (2.0-8.3); Neutrophils Percent Auto 64.6 % (45-73); Platelet Count 255 X10*3/uL (160-400); Red Blood Count 3.81 X10*6/uL (4.20-5.50); Red Cell Distribution Width 15.4 % (11.0-16.0); White Blood Count 5.9 X10*3/uL (4.8-10.8)
[2025-02-15 11:59] LABS: Alanine Aminotransferase 16 U/L (0-31); Albumin Level 3.8 g/dL (3.5-5.0); Alkaline Phosphatase 71 U/L (39-117); Anion Gap 12 (12-20); Aspartate Amino Transferase 20 U/L (5-31); Bilirubin Total 1.6 mg/dL (0.0-1.0); Blood Urea Nitrogen 21 mg/dL (9-16); Calcium 8.9 mg/dL (8.4-10.2); Carbon Dioxide 28 mmol/L (22-29); Chloride 108 mmol/L (96-108); Cholesterol 113 mg/dL (<200); Estimated Glomerular Filt Rate > 60; Glucose Fasting 76 mg/dL (60-99); HDL Cholesterol 48 mg/dL (>40); LDL Cholesterol Calculated 55 mg/dL (<100); Potassium 3.6 mmol/L (3.3-5.1); Sodium 144 mmol/L (135-145); Triglycerides 52 mg/dL (<150)
[2025-02-15 12:06] LABS: TSH reflex Free T4 1.85 uIU/mL (0.32-4.0)
== END 2025-02-15 08:45 | disposition home or self-care (01) ==
LOC: HO.HMGCLDS 08:44
PROVIDERS: PCP Internal Medicine; Visit Provider Internal Medicine
DX: I10 Essential (primary) hypertension (principal); E78.5 Hyperlipidemia, unspecified; I48.91 Unspecified atrial fibrillation
CPT/HCPCS: 36415; 80053; 80061; 84443; 85025

== ENCOUNTER 2025-02-21 09:34 | Outpatient (AMB) | payer MEDICARE, SELFPAY ==
--- NOTE | 2025-02-21 09:41 | AM.OFFVISMDC ---
Intake Vital Signs 02/21/25 09:49 Height 5 ft 1 in Weight 125 lb BMI 23.6 BP 118/66 Blood Pressure Location Rt brachial Position Sitting Respiration 18 Pulse 50 Pulse Source Pulse Oximeter Temp 97.9 F Temp Source Oral Pulse Oximetry (%) 100 Oxygen Delivery Method Room Air Intake Visit Reasons: [facility] G0439 Allergies No Known Allergies Allergy (Verified 02/21/25 09:44) Medication List - Last Reconciled 02/21/25 by Rakel Rodriguez MD amiodarone 200 mg PO DAILY amlodipine 5 mg PO DAILY atorvastatin 40 mg PO DAILY cholecalciferol (vitamin D3) 50 mcg PO DAILY Eliquis (apixaban) 5 mg PO BID NS folic acid 0.8 mg PO DAILY levothyroxine 25 mcg PO DAILY methotrexate sodium 20 mg PO QWEEK metoprolol succinate ER 50 mg PO DAILY omeprazole 20 mg PO DAILY trazodone 100 mg (2 x 50 mg) PO BEDTIME PRN valsartan-hydrochlorothiazide 320-12.5 mg 1 tab PO DAILY vit C,E,Zn,Jw-avkzp0-tev-zeax 250-2.5-0.5 mg caps PO vitamins A,C,T-bxit-qvtktl (PreserVision AREDS) PO HPI V G0439 HPI Details Initiated the conversation about Advanced Directives. Advanced Directives help? patients prepare for current and future decisions about their medical treatment? and place of care. Discussed with patient that it is a process where a patients? current condition and prognosis are reviewed, their wishes for information? regarding their illness are elicited, and likely medical dilemmas are presented? and options discussed. The form can be amended as needed, reviewed yearly and? make changes as needed IPPE/AWV ? year old presents? for her ? Annual? Wellness Visit, initial visit.? Medical / Social History Reviewed? Past Medical History ?Yes? . ? [place]? of Care / Care Team list updated ?Yes . ? Surgical/Hospitalization? History ?Yes . ? Current Medications? (including OTC and supplements) ?Yes . ? Family History ?Yes? . ? Tobacco? Control form ?Yes . ? AUDIT-C (Alcohol use) form? ?Yes . ? Illicit drug use in Social? History ?Yes . ? Current diagnosis of? depression? ?No ? Appropriate PHQ2/PHQ9? completed ?Yes . ? Data entered by ?Medical? Log Brander and reviewed by provider ? Fall Risk ? Fall? History? Have you had any falls with? injury in the past year? ?No . ? Have you had two or more? falls in the past year? ?No . ? Fall Risk Assessment: ?No? falls in the past year . ? HRA filled out by? the patient, reviewed by Provider and scanned. ? IPPE/AWV ? Balance? [place]? ?Yes . ? Tandem? walk ?Yes . ? Walk and? Turn ?Yes . ? Rise from? sit to stand ?Yes . ?Vision? Corrective? lens ?Yes ? Vision? screen ? Up-to-date, has an appointment [] for vision? screening and glaucoma screening ?Hearing? Whisper? test ?pass .? Initiated the conversation about Advanced Directives. Advanced Directives help? patients prepare for current and future decisions about their medical treatment? and place of care. Discussed with patient that it is a process where a patients? current condition and prognosis are reviewed, their wishes for information? regarding their illness are elicited, and likely medical dilemmas are presented? and options discussed. The form can be amended as needed, reviewed yearly and? make changes as needed Written? Plan?Completed. See Patient? Documents. PFSH Surgical History H/O breast biopsy Family History Father Heart problem Social History Household Members Other:: lives alone, daughter lives in [place], son lives in [place], Housing: House Alcohol intake: never Patient Tobacco Use Status: Never used Tobacco e-Cigarette/Vaping Use: Never Used service: No Current occupational status: retired Current occupational exposures/hazards: No Cognitive needs: No Hearing needs: No Vision needs: Yes Questionnaire Medicare Wellness Checkup [age] What gender do you identify with?: female During the past 4 weeks, how much have you been bothered by emotional problems such as feeling anxious, depressed, irritable, sad or downhearted, and blue?: not at all During the past 4 weeks, has your physical & emotional health limited your social activities with family, friends, neighbors, or groups?: not at all During the past 4 weeks, how much bodily pain have you generally had?: very mild pain During the past 4 weeks, was someone available to help you if you needed & wanted help?: yes, as much as I wanted During the past 4 weeks, what was the hardest physical activity you could do for at least 2 minutes?: very light Can you get to places out of walking distance without help? (For eg., can you travel alone on buses, taxis or drive your car?): Yes Can you go shopping for groceries or clothes without someone's help?: Yes Can you prepare your own meals?: Yes Can you do your housework without help?: Yes Because of any health problems, do you need the help of another person with your personal care needs such as eating, bathing, dressing or getting around the house?: No Can you handle your own money without help?: Yes During the past 4 weeks, how would you rate your health in general?: good During the past 4 weeks how have things been going for you?: pretty well Are you having difficulties driving your car?: no Do you always fasten your seat belt when you are in a car?: yes, usually During past 4 weeks, have you been bothered by the following: never: Falling or dizzy when standing up, Sexual problems?, Trouble eating well?, Teeth or denture problems? and Problems using the telephone? and seldom: Tiredness or fatigue? Have you fallen 2 or more times in the past year?: No Are you afraid of falling?: Yes Are you a smoker?: no During the past 4 weeks, how many drinks of wine, beer, or other alcoholic beverages did you have?: no alcohol at all Do you exercise for about 20 minutes 3 or more times a week?: yes, some of the time Have you been given information to help with the following?: no: Hazards in your house that might hurt you? and no: Keeping track of your medications? How often do you have trouble taking medicines the way you have been told to take them?: I always take medicine as prescribed How confident are you that you can control & manage most of your health problems?: very confident What is your race?: White Mini Mental State Exam (MMSE) Orientation What is the (year) (season) (date) (day) (month)?: year, season, date, day and month Where are we (state) (county) (town or city) (hospital) (floor)?: state, county, town or city, hospital/clinic and floor Registration Name of 3 unrelated objects clearly and slowly, then ask patient to repeat all 3 of them. (1st repeat determines score. Make sure they can repeat all three): object 1, object 2 and object 3 Attention & Calculation (CHOOSE ONE) Spell WORLD backwards (DLROW): 5 letters Recall Ask patient to repeat the 3 items from question #3.: object 1, object 2 and object 3 Language Show patient a wristwatch & ask what it is. Repeat for pencil.: watch and pencil Ask the patient to repeat the phrase 'No ifs, ands, or buts' after you.: correct Ask the patient to 'take a piece of paper with their right hand' 'fold paper in half' 'place paper on floor': take paper in right hand, fold paper in half and place paper on floor Print the sentence 'CLOSE YOUR EYES' on a piece. If patient actually closes eyes then score.: followed written direction Give patient a blank piece of paper & ask to write a sentence. Score if it contains a noun & verb.: sentence contains subject and verb Score Score: 29 Activity of Daily Living Bathing - sponge bath, tub bath or shower: receives no assistance (gets in/out by self, if usual bathing means Dressing - getting clothes from closets & drawers, including inner/outer garments & fasteners.: gets clothes & gets completely dressed without help Toileting - going to the 'toilet room' for urine/bowel elimination & cleaning self/arranging clothes: goes to toilet room, cleans self, arranges clothes without help Transfer: moves in & out of bed and chair without help (may use support object) Continence: controls urination/bowel movements completely by self Feeding: feeds self without help Total Score: 0 Information obtained from: patient Using telephone: independent Traveling: independent Shopping: independent Preparing meals: independent Housework: independent Taking medicine: independent Managing money: independent PHQ-9 Over the last 2 weeks, how often have you been bothered by any of the following problems? 1. Little interest or pleasure in doing things: not at all 2. Feeling down, depressed, or hopeless: not at all 3. Trouble falling or staying asleep, or sleeping too much: not at all 4. Feeling tired or having little energy: not at all 5. Poor appetite or overeating: not at all 6. Feeling bad about yourself - or that you are a failure or have let yourself or your family down: not at all 7. Trouble concentrating on things, such as reading the newspaper or watching television: not at all 8. Moving or speaking so slowly that other people could have noticed. Or the opposite - being so fidgety or restless that you have been moving around a lot more than usual: not at all 9. Thoughts that you would be better off or of hurting yourself in some way: not at all Total score: 0 Depression Screening Interpretation: Negative Depression Screening Done: Yes 83774 - PHQ-9 Billing: Yes Source: Developed by Drs. Fredi Lambert, Kamila Winter, Jeanmarie Kevin and colleagues, with an educational clary from [employer]. Review of Systems Const All systems reviewed & are unremarkable except as noted in HPI and below Eyes Reports no additional complaints ENT Reports no additional complaints Card Reports no additional complaints Resp Reports no additional complaints GI Reports no additional complaints Reports no additional complaints Physical Exam Vital Signs: Last Vital Signs Temp 97.9 F 02/21/25 09:49 Pulse 50 02/21/25 09:49 Resp 18 02/21/25 09:49 BP 118/66 02/21/25 09:49 Pulse Ox 100 02/21/25 09:49 Oxygen Delivery Method Room Air 02/21/25 09:49 BMI result Body Mass Index 23.6 Const General: no acute distress HEENT Head: Yes normal to inspection Ears: TM's normal bilaterally Eyes General: appearance normal, both eyes and all related structures Neck Neck: Yes no lymphadenopathy and Yes supple Resp Effort & Inspection: normal respiratory effort Auscultation: clear to auscultation bilaterally Cardio Rhythm: regular rhythm Heart sounds: S1 normal heart sound present and S2 normal heart sound present GI Inspection: Yes normal to inspection Palpation (GI): Soft to palpation Percussion: Yes normal to percussion Auscultation: normal bowel sounds Extrem General: Yes no clubbing, cyanosis or edema Immunizations pneumoc 20-derik conj-dip cr(PF) 0.5 mL IM syringe Performing Provider: Rakel Rodriguez MD Performing Location: [facility] Administered by: KORI Weaver on 02/21/25 10:36 Dose Route Admin Location Dispensed Lot Number Expiration Date [facility] Construction Safety Manager 0.5 mL IM Left Deltoid 0.5 mL [id number] 11/12/25 [id number] Adaptive[employer]/Moguj[employer] VIS Given Date VIS Provided VIS Publication Date 02/21/25 Single Vaccine 21 Eligibility Eligibility Date Funding Source Not [facility] Eligible 02/21/25 Private Assessment & Plan Assessment & Plan (1) A-fib: Comment: 1 episode 2020 f/u [facility], Dr. 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 Panel Fast 6 Months E55.9 - Vitamin D deficiency, unspecified, E78.5 - Hyperlipidemia, unspecified, I10 - Essential (primary) hypertension, I48.91 - Unspecified atrial fibrillation Complete Blood Count Auto Diff 6 Months E55.9 - Vitamin D deficiency, unspecified, E78.5 - Hyperlipidemia, unspecified, I10 - Essential (primary) hypertension, I48.91 - Unspecified atrial fibrillation IRON PROFILE 6 Months E55.9 - Vitamin D deficiency, unspecified, E78.5 - Hyperlipidemia, unspecified, I10 - Essential (primary) hypertension, I48.91 - Unspecified atrial fibrillation TSH reflex Free T4 6 Months E55.9 - Vitamin D deficiency, unspecified, E78.5 - Hyperlipidemia, unspecified, I10 - Essential (primary) hypertension, I48.91 - Unspecified atrial fibrillation Pneumococcal 20 Immunization Today Z23 - Encounter for immunization Vitamin B12 and Folate 6 Months E55.9 - Vitamin D deficiency, unspecified, E78.5 - Hyperlipidemia, unspecified, I10 - Essential (primary) hypertension, I48.91 - Unspecified atrial fibrillation Vitamin D 25-OH Total 6 Months E55.9 - Vitamin D deficiency, unspecified, E78.5 - Hyperlipidemia, unspecified, I10 - Essential (primary) hypertension, I48.91 - Unspecified atrial fibrillation Quality Reporting (2019) Depression/Bipolar (159/160/161/177) PHQ-9: Total score: 0 Coding Level of Care Code Medicare Subsequent (G0439) Diagnoses A-fib I48.91 Hyperlipidemia E78.5 HTN (hypertension) I10 Vitamin D deficiency E55.9 Rheumatoid arteritis M05.20 CPT Codes Advance Care Planning - Advance Care Planning discussion: On file, no changes ([id number]) Advance Care Planning - Time spent: 1-15 minutes, on File ([id number]) Additional Codes PHQ-9 - 00446 - PHQ-9 Billing: Yes ([id number]) Advance Care Planning Advance Care Planning discussion: On file, no changes Forms completed: Health Care Proxy Time spent: 1-15 minutes, on File Did not discuss due to Cultural/Spiritual beliefs: Yes
[2025-02-21 09:49] VITALS: BP 118/66; PULSE 50; RESP 18; TEMP 36.6; O2SAT 100; BMI 23.6
--- OUTSIDE RECORDS SUMMARY | 2025-02-21 10:12 | XMS_ITS | Patient Health Record ---
Author [facility] Address [address] [place] [address] Care Team Providers Care Press Brake Operator Name Role Phone Alec Sanford MD Primary Care Provider Unavailab Erik Horowitz Unavailable [phone] Reason For Referral No Information Medications Medication [...] Status W/U Status Risk Notes Problem Onychomycosis (495660035) Onychomycosis (110.1) Active confirmed Problem Pain in limb (68958010) Pain in Limb (729.5) Active confirmed Problem Ingrowing nail (278814181) Ingrowing Nail (703.0) Active confirmed Plan Of Treatment Pending Test Test Name Order Date [id number] NAIL, 6 OR MORE 01/06/2012 [id number] NAIL, 6 OR MORE 03/06/2012 14614-Rfhfyand Plate 10/02/2011 23055- Debride <25 sq cm 10/24/2011 Insurance Providers Payer Name Payer Address Payer Phone Subscriber Number Group Number Insured Name Patient Relationship to Insured Coverage Start Date Coverage End Date [facility] [address] [place] [address] [id number] Cheyanne Amador Self - patient is the insured Medical (General) History Medical History History ICD Code anxiety Arthritis back, hip, knee pain Cholesterol headaches/migraines hypertension osteoporosis sciatica stomach ulcer chicken pox Surgical History Surgery Date(Month/Year) breast biopsy
== END 2025-02-21 10:49 | disposition home or self-care (01) ==
LOC: HO.HMCC 09:35
PROVIDERS: PCP Internal Medicine; Visit Provider Internal Medicine
DX: Z00.00 Encounter for general adult medical examination without abnormal findings (principal); I48.91 Unspecified atrial fibrillation; M05.20 Rheumatoid vasculitis with rheumatoid arthritis of unspecified site; E78.5 Hyperlipidemia, unspecified; I10 Essential (primary) hypertension; E55.9 Vitamin D deficiency, unspecified; Z23 Encounter for immunization

== ENCOUNTER → 2025-02-21 09:34 | Outpatient (BNVA) | payer MEDICARE, SELFPAY | PROVIDERS: PCP Internal Medicine; Visit Provider Internal Medicine | DX: Z00.00 Encounter for general adult medical examination without abnormal findings (principal); Z23 Encounter for immunization; I48.91 Unspecified atrial fibrillation; E78.5 Hyperlipidemia, unspecified; I10 Essential (primary) hypertension; E55.9 Vitamin D deficiency, unspecified; M05.20 Rheumatoid vasculitis with rheumatoid arthritis of unspecified site | CPT/HCPCS: 90471; 90677; 96127 ==

== ENCOUNTER 2025-02-24 08:13 | Outpatient (AMB) | payer MEDICARE, SELFPAY ==
--- NOTE | 2025-02-24 08:18 | MHC.OFFVIS ---
Vital Signs 02/24/25 08:28 Height 5 ft 1 in Weight 127 lb BMI 24.0 BP 120/58 L Blood Pressure Location Rt brachial Position Sitting Pulse 53 Intake Visit Reasons: R BREAST US GUIDED BX Intake Note: Patient is seen in office for ultrasound biopsy CONSULT right breast 12 o'clock density. Pt c/o: no concerns. Denies tenderness, rash, nipple discharge. BX: 02/24/25 @ 10am General Cargo Clerk Required: No Accompanied by: Self / Same As Patient Allergies No Known Allergies Allergy (Verified 02/24/25 08:24) Medication List - Last Reconciled 02/24/25 by Alec Mayberry MD amiodarone 200 mg PO DAILY amlodipine 5 mg PO DAILY atorvastatin 40 mg PO DAILY cholecalciferol (vitamin D3) 50 mcg PO DAILY Eliquis (apixaban) 5 mg PO BID NS folic acid 0.8 mg PO DAILY levothyroxine 25 mcg PO DAILY methotrexate sodium 20 mg PO QWEEK metoprolol succinate ER 50 mg PO DAILY omeprazole 20 mg PO DAILY trazodone 100 mg (2 x 50 mg) PO BEDTIME PRN valsartan-hydrochlorothiazide 320-12.5 mg 1 tab PO DAILY vit C,E,Zn,Dv-aqoys7-zmo-zeax 250-2.5-0.5 mg caps PO vitamins A,C,I-dyzl-bctcbd (PreserVision AREDS) PO HPI Comments Details: 79-year-old female patient presenting with a recent mammogram performed on 01/14/2025 with follow-up mammogram and ultrasound performed on 01/31/2025 which revealed a hypoechoic area in the 12 o'clock position, 7 cm from the nipple probably correlating with a developing focal asymmetry in the retroareolar region on mammography felt to be suspicious for malignancy (BI-RADS 4). She is scheduled for an ultrasound-guided core biopsy at the [facility] later today (02/24/2025). She reports a previous history of a left breast biopsy performed by Dr. Rodriguez in approximately 1974 which was benign. She denies any other breast symptoms or breast surgery. Her family history is significant only for a maternal aunt with breast cancer many years ago. She has no family history of ovarian cancer or other cancers. She is 2 para 2, did not breastfeed her children. Her 1st child was born she was 22 years old. Menarche was age 14 and menopause at 47. Her past history is significant for atrial fibrillation, on Eliquis, hypertension, rheumatoid arthritis, and GERD. FORMERLY [facility] Medical History Rheumatoid arteritis Vitamin D deficiency Hypothyroid Hyperlipidemia A-fib HTN (hypertension) Surgical History H/O breast biopsy H/O breast biopsy Family History Father Heart problem Maternal Aunt Breast CA Social History Household Members Other:: lives alone, daughter lives in [place], son lives in [place], Housing: House Alcohol intake: never Patient Tobacco Use Status: Never used Tobacco e-Cigarette/Vaping Use: Never Used service: No Current occupational status: retired Current occupational exposures/hazards: No Cognitive needs: No Hearing needs: No Vision needs: Yes Physical Exam Vital Signs: Last Vital Signs Pulse 53 02/24/25 08:28 BP 120/58 L 02/24/25 08:28 BMI result Body Mass Index 24.0 Const General: cooperative and no acute distress Nutritional Appearance: well nourished Orientation/consciousness: patient oriented x3 Limitations: no limitations HEENT Head: Yes normocephalic and Yes atraumatic Ears: hearing grossly normal bilaterally Chest Other: Left breast: No skin change, no nipple retraction, no nipple discharge, no palpable mass, no enlarged lymph nodes. Well-healed incision in a circumareolar location at 12:00. Right breast: No skin change, no nipple retraction, no nipple discharge, no palpable mass, no enlarged lymph nodes Chest/axillae images: 1. Previous incision left breast circumareolar Resp Effort & Inspection: normal respiratory effort, no audible wheezes, no cough and no respiratory distress Cardio Jugular venous distension: no JVD GI Inspection: Yes normal to inspection Skin Other: Warm, dry, no rash Neuro Other: Mobility Assessment: 1. 3 meter assessment time (seconds) 5 2. Gait observations: Normal balance and gait General: patient oriented x3 Extrem General: Yes no clubbing, cyanosis or edema Assessment & Plan Assessment & Plan (1) Abnormal mammogram of right breast: Code(s): R92.8 - Other abnormal and inconclusive findings on diagnostic imaging of breast Category: Medical (2) Abnormal ultrasound of breast: Code(s): R92.8 - Other abnormal and inconclusive findings on diagnostic imaging of breast Category: Medical Plan 79-year-old female patient with a recent mammogram and ultrasound which revealed a evolving hypoechoic lesion/focal asymmetry at the 12:00 location, 7 cm from the nipple. This was felt to be suspicious for malignancy. She is scheduled for an ultrasound-guided core biopsy later today at the [facility]. Examination today revealed no suspicious findings in either breast. She does have evidence of a previous left breast biopsy which apparently was benign. No other suspicious findings were identified. Patient has no other risk factors for breast cancer. I recommended the patient return in 1 week to review the pathology results and discuss treatment options. She expressed understanding and agrees with the plan. Orders: Orders US breast ndl core biopsy RT Today R92.8 - Other abnormal and inconclusive findings on diagnostic imaging of breast Coding Level of Care Code New Pt Level 4 (58569) Diagnoses Abnormal mammogram of right breast R92.8 Abnormal ultrasound of breast R92.8
--- OUTSIDE RECORDS SUMMARY | 2025-02-24 08:18 | XMS_ITS | Patient Health Record ---
[facility] Organization [facility] Address [address] [place] [address] Care Team Providers Care Appraiser Name Role Phone Alec Sanford MD Primary Care Provider Unavailab Erik Horowitz Unavailable [phone] Reason For Referral No Information Medications Medication [...] Status W/U Status Risk Notes Problem Onychomycosis (053808952) Onychomycosis (110.1) Active confirmed Problem Pain in limb (14547263) Pain in Limb (729.5) Active confirmed Problem Ingrowing nail (149817601) Ingrowing Nail (703.0) Active confirmed Plan Of Treatment Pending Test Test Name Order Date [id number] NAIL, 6 OR MORE 01/06/2012 [id number] NAIL, 6 OR MORE 03/06/2012 45417-Ewotcpve Plate 10/02/2011 15495- Debride <25 sq cm 10/24/2011 Insurance Providers Payer Name Payer Address Payer Phone Subscriber Number Group Number Insured Name Patient Relationship to Insured Coverage Start Date Coverage End Date [facility] [address] [place] [address] [id number] Cheyanne Amador Self - patient is the insured Medical (General) History Medical History History ICD Code anxiety Arthritis back, hip, knee pain Cholesterol headaches/migraines hypertension osteoporosis sciatica stomach ulcer chicken pox Surgical History Surgery Date(Month/Year) breast biopsy
[2025-02-24 08:28] VITALS: BP 120/58; PULSE 53; BMI 24.0
== END 2025-02-24 08:44 | disposition home or self-care (01) ==
LOC: HO.HGS 08:14
PROVIDERS: PCP Internal Medicine; Visit Provider Surgery
DX: R92.8 Other abnormal and inconclusive findings on diagnostic imaging of breast (principal)
CPT/HCPCS: 99204

== ENCOUNTER 2025-02-24 08:52 | Outpatient (REF) | payer MEDICARE, SELFPAY ==
--- NOTE | ~2025-02-24 | MM_ITS ---
PROCEDURE: ULTRASOUND-GUIDED RIGHT BREAST BIOPSY CLINICAL INFORMATION: Developing focal asymmetry in the right breast posterior depth on mammography with questionable ultrasound correlate solid mass at 12:00 7 cm from the nipple. COMPARISON: Priors on PACS. TECHNIQUE: The details of the procedure, as well as the risks, benefits, and alternatives to the procedure were explained to the patient in detail and all of her questions were answered, after which, written informed consent was obtained. PROCEDURE: Prior to the procedure, sonography revealed solid mass at 12:00 7 cm from the nipple. A time-out was performed, the lesion intended for biopsy was targeted and the skin of the right breast was then prepped and draped in the usual sterile fashion. Using sonographic guidance, sterile technique, and 1% lidocaine without epinephrine for local anesthesia, a total of 5 cores were obtained through the targeted area with a 14-gauge biopsy device. At the completion of tissue sampling, a single coil metallic clip was deposited at the biopsy site. An appropriate sample was obtained. The postprocedure 2 view direct digital mammogram reveals the marker clip to be anterior to the original developing focal asymmetry of concern. These results were discussed with the patient and the recommendation for a stereotactic core needle biopsy of the right breast was discussed as a possibility after pathology results return. The patient tolerated the procedure well and, after assuring adequate hemostasis, was discharged in good condition after reviewing postbiopsy breast care instructions. Final pathology results are pending. MM/MM tomosynthesis diagnostic RT IMPRESSION: 1. Uncomplicated sonographically-guided core biopsy of the right breast. Marker clip is anterior to the developing focal asymmetry on mammography. Recommendation for an additional biopsy under stereotactic core needle guidance will need to be scheduled. 2. Final pathology results are pending. A separate report with final recommendations will be issued once these results are made available. Electronically signed by: Luma Tavarez DO 02/24/2025 11:44 AM EDT
== END 2025-02-24 08:53 | disposition home or self-care (01) ==
LOC: HO.MAMMO 08:52
PROVIDERS: PCP Internal Medicine; Visit Provider Surgery
DX: R92.8 Other abnormal and inconclusive findings on diagnostic imaging of breast (principal)
CPT/HCPCS: 19083; 77061; 77065; 88305; 99202

== ENCOUNTER → 2025-02-24 10:00 | Outpatient (BNV) | payer MEDICARE, SELFPAY | PROVIDERS: PCP Internal Medicine; Visit Provider Internal Medicine | DX: N63.12 Unspecified lump in the right breast, upper inner quadrant (principal) | CPT/HCPCS: 19083; 77065 ==

== ENCOUNTER 2025-03-03 09:24 | Outpatient (AMB) | payer MEDICARE, SELFPAY ==
--- NOTE | 2025-03-03 09:24 | A.OFFVIS_ITS ---
Vital Signs 03/03/25 09:39 Height 5 ft 1 in Weight 125 lb BMI 23.6 BP 120/58 L Blood Pressure Location Lt brachial Position Sitting Pulse 60 Intake Visit Reasons: 1wk s/p R BREAST US GUIDED BX Intake Note: Patient is seen in office for biopsy RESULTS right breast. 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: No Accompanied by: Self / Same As Patient Allergies No Known Allergies Allergy (Verified 03/03/25 09:26) Medication List - Last Reconciled 03/03/25 by Alec Mayberry MD amiodarone 200 mg PO DAILY amlodipine 5 mg PO DAILY atorvastatin 40 mg PO DAILY cholecalciferol (vitamin D3) 50 mcg PO DAILY Eliquis (apixaban) 5 mg PO BID NS folic acid 0.8 mg PO DAILY levothyroxine 25 mcg PO DAILY methotrexate sodium 20 mg PO QWEEK metoprolol succinate ER 50 mg PO DAILY omeprazole 20 mg PO DAILY trazodone 100 mg (2 x 50 mg) PO BEDTIME PRN valsartan-hydrochlorothiazide 320-12.5 mg 1 tab PO DAILY vit C,E,Zn,Wp-idavn7-tgb-zeax 250-2.5-0.5 mg caps PO vitamins A,C,T-hgtx-jlqmmb (PreserVision AREDS) PO HPI Comments Details: 79-year-old female patient presenting with a recent mammogram performed on 01/14/2025 with follow-up mammogram and ultrasound performed on 01/31/2025 which revealed a hypoechoic area in the 12 o'clock position, 7 cm from the nipple probably correlating with a developing focal asymmetry in the retroareolar region on mammography felt to be suspicious for malignancy (BI-RADS 4). She is scheduled for an ultrasound-guided core biopsy at the [facility] later today (02/24/2025). She reports a previous history of a left breast biopsy performed by Dr. Rodriguez in approximately 1974 which was benign. She denies any other brett ast symptoms or breast surgery. Her family history is significant only for a maternal aunt with breast cancer many years ago. She has no family history of ovarian cancer or other cancers. She is 2 para 2, did not breastfeed her children. Her 1st child was born she was 22 years old. Menarche was age 14 and menopause at 47. Her past history is significant for atrial fibrillation, on Eliquis, hypertension, rheumatoid arthritis, and GERD. She underwent an ultrasound-guided core biopsy at the [facility] on 02/24/2025. Subsequent diagnostic mammogram post biopsy revealed the marking clip to be distant from the asymmetric density noted on mammogram. She is now scheduled for a stereotactic guided core biopsy at the [facility] in 1 week. The mammographic images were reviewed with the patient to demonstrate the reason for repeat biopsy. [facility]LY [facility] Medical History Rheumatoid arteritis Vitamin D deficiency Hypothyroid Hyperlipidemia A-fib HTN (hypertension) Surgical History H/O breast biopsy H/O breast biopsy Family History Father Heart problem Maternal Aunt Breast CA Social History Household Members Other:: lives alone, daughter lives in [place], son lives in [place], Housing: House Alcohol intake: never Patient Tobacco Use Status: Never used Tobacco e-Cigarette/Vaping Use: Never Used service: No Current occupational status: retired Current occupational exposures/hazards: No Cognitive needs: No Hearing needs: No Vision needs: Yes Physical Exam Vital Signs: Last Vital Signs Pulse 60 03/03/25 09:39 BP 120/58 L 03/03/25 09:39 BMI result Body Mass Index 23.6 Const General: cooperative and no acute distress Nutritional Appearance: well nourished Orientation/consciousness: patient oriented x3 Limitations: no limitations Chest Other: Exam deferred Resp Effort & Inspection: normal respiratory effort, no audible wheezes, no cough and no respiratory distress GI Inspection: Yes normal to inspection Skin Other: Warm, dry, no rash Neuro Other: Mobility Assessment: 1. 3 meter assessment time (seconds) 5 2. Gait observations: Normal balance and gait General: patient oriented x3 Extrem General: Yes no clubbing, cyanosis or edema Assessment & Plan Assessment & Plan (1) Abnormal mammogram of right breast: Code(s): R92.8 - Other abnormal and inconclusive findings on diagnostic imaging of breast Category: Medical (2) Abnormal ultrasound of breast: Code(s): R92.8 - Other abnormal and inconclusive findings on diagnostic imaging of breast Category: Medical Plan 79-year-old female patient with an asymmetric density noted on mammogram in the right breast status post ultrasound-guided core biopsy which revealed benign breast tissue and pseudoangiomatous stromal hyperplasia. Postprocedure diagnostic mammogram however raised concerns about this being a separate lesion from the asymmetric density noted on mammogram. She is now scheduled for a stereotactic guided core biopsy at the [facility] in 1 week. Patient expressed understanding and agrees with the procedure. She will return 1 week following the biopsy to review the pathology results and discuss treatment options. Coding Level of Care Code Est Pt Level 3 (40385) Diagnoses Abnormal mammogram of right breast R92.8 Abnormal ultrasound of breast R92.8
[2025-03-03 09:39] VITALS: BP 120/58; PULSE 60; BMI 23.6
--- OUTSIDE RECORDS SUMMARY | 2025-03-03 10:07 | XMS_ITS | Patient Health Record ---
[facility] Address [address] [place] [address] Care Team Providers Care Assistant Property Manager Name Role Phone Alec Sanford MD Primary Care Provider Unavailab Erik Horowitz Unavailable [phone] Reason For Referral No Information Medications Medication [...] Status W/U Status Risk Notes Problem Onychomycosis (024160778) Onychomycosis (110.1) Active confirmed Problem Pain in limb (72022733) Pain in Limb (729.5) Active confirmed Problem Ingrowing nail (431566948) Ingrowing Nail (703.0) Active confirmed Plan Of Treatment Pending Test Test Name Order Date [id number] NAIL, 6 OR MORE 01/06/2012 [id number] NAIL, 6 OR MORE 03/06/2012 [id number] Plate 10/02/2011 06865- Debride <25 sq cm 10/24/2011 Insurance Providers Payer Name Payer Address Payer Phone Subscriber Number Group Number Insured Name Patient Relationship to Insured Coverage Start Date Coverage End Date [facility] [address] [place] [address] [phone] [id number] Cheyanne Amador Self - patient is the insured Medical (General) History Medical History History ICD Code anxiety Arthritis back, hip, knee pain Cholesterol headaches/migraines hypertension osteoporosis sciatica stomach ulcer chicken pox Surgical History Surgery Date(Month/Year) breast biopsy
== END 2025-03-03 09:47 | disposition home or self-care (01) ==
LOC: HO.HGS 09:24
PROVIDERS: PCP Internal Medicine; Visit Provider Surgery
DX: R92.8 Other abnormal and inconclusive findings on diagnostic imaging of breast (principal)
CPT/HCPCS: 99213

== ENCOUNTER → 2025-03-03 09:24 | Outpatient (BNVA) | payer MEDICARE, SELFPAY | PROVIDERS: PCP Internal Medicine; Visit Provider Surgery | DX: R92.8 Other abnormal and inconclusive findings on diagnostic imaging of breast (principal) | CPT/HCPCS: 99212 ==

== ENCOUNTER 2025-03-10 08:44 | Outpatient (REF) | payer MEDICARE, SELFPAY ==
--- NOTE | ~2025-03-10 | US_ITS ---
EXAMINATION: US DIAGNOSTIC ULTRASOUND BREAST, RIGHT CLINICAL INFORMATION: Patient returned after a benign ultrasound guided core needle biopsy in the right breast as the clip did not correlate with the original focal asymmetry. Patient return for right breast stereotactic core needle biopsy of focal asymmetry central inner right breast far posterior depth.. The patient could not tolerate the prone stereotactic table, it was offered to send the patient to outside institution for an upright stereotactic core needle biopsy however the patient refuses to go outside at this time. Ultrasound evaluation was performed for further evaluation today. COMPARISON: Comparison is made with relevant prior imaging. TECHNIQUE: Ultrasound of the breast is performed with real-time bonner scale imaging and color Doppler. FINDINGS: Targeted color Doppler ultrasound scanning in the right breast from 12-3 o'clock demonstrates the previously biopsied tissue with marker clip at 12:00 from recent benign needle core biopsy additional scanning more posterior and medially was performed and demonstrates dense patches of fibroglandular breast tissue. Results are discussed with the patient at time of visit. US/US breast RT limited IMPRESSION: Focal asymmetry in the right breast which may be related to patient's 40 pound weight loss in the past few years is far posterior in the breast and the patient [facility] due to back pain. Patient declines offered to code 2 outside institution for an upright stereotactic core needle biopsy at this time. Patient prefers six-month follow-up mammogram and ultrasound for further evaluation of stability or any changes in the focal asymmetry with both mammogram and ultrasound. ASSESSMENT: BI-RADS 3: Probably Benign RECOMMENDATION: Diagnostic mammography in 6 months. This patient's information was entered into a reminder system with a target due date for their next mammogram. Electronically signed by: Luma Tavarez DO 03/10/2025 10:42 AM EDT
--- OUTSIDE RECORDS SUMMARY | 2025-03-10 09:15 | XMS_ITS | Patient Health Record ---
[facility] Address [address] [place] [address] Care Team Providers Care Children'S Nursery Assistant Name Role Phone Alec Sanford MD Primary Care Provider Unavailab Erik Horowitz Unavailable [phone] Reason For Referral No Information Medications Medication SIG (Take, Route, Frequency, Duration) Notes Start Date End Date Status Methotrexate 2.5 MG Orally; Duration: 30 day(s) Active Propranolol HCl 40 MG 1 tablet Orally On ce a day; Duration: 30 day(s) Active Folic Acid 1 MG 1 tablet Orally Once a day; Duration: 30 day(s) Active Fosamax 70 MG 1 tablet Orally Once a day; Duration: 30 day(s) Active Vitamin D 2000 UNIT Orally Once a day Active Exforge 10 MG 1 tablet Orally Once a day; Duration: 30 day(s) Active Multivitamins as directed Orally Active Caltrate 600+D 600 MG-UNIT 1 tablet with food Orally Once a day; Duration: 30 day(s) Active Simvastatin 40 MG 1 tablet every eveni ng Orally Once a day; Duration: 30 day(s) Active traZODone HCl 50 MG 1 tablet at bedtime Orally Twice a day; Duration: 30 day(s) Active Omeprazole 20 MG 1 capsule Orally Onc e a day; Duration: 30 day(s) Active Problems Problem Type SNOMED Code ICD Code Onset Dates Problem Status W/U Status Risk Notes Problem Onychomycosis (652295807) Onychomycosis (110.1) Active confirmed Problem Pain in limb (13682459) Pain in Limb (729.5) Active confirmed Problem Ingrowing nail (484228328) Ingrowing Nail (703.0) Active confirmed Plan Of Treatment Pending Test Test Name Order Date [id number] NAIL, 6 OR MORE 01/06/2012 [id number] NAIL, 6 OR MORE 03/06/2012 [id number] Plate 10/02/2011 53217- Debride <25 sq cm 10/24/2011 Insurance Providers Payer Name Payer Address Payer Phone Subscriber Number Group Number Insured Name Patient Relationship to Insured Coverage Start Date Coverage End Date [facility] [address] [place] [address] [phone] [id number] Cheyanne Amador Self - patient is the insured Medical (General) History Medical History History ICD Code anxiety Arthritis back, hip, knee pain Cholesterol headaches/migraines hypertension osteoporosis sciatica stomach ulcer chicken pox Surgical History Surgery Date(Month/Year) breast biopsy
== END 2025-03-10 08:45 | disposition home or self-care (01) ==
LOC: HO.MAMMO 08:44
PROVIDERS: PCP Internal Medicine; Visit Provider Surgery
DX: R92.8 Other abnormal and inconclusive findings on diagnostic imaging of breast (principal)
CPT/HCPCS: 76642

== ENCOUNTER → 2025-03-10 08:56 | Outpatient (BNV) | payer MEDICARE, SELFPAY | PROVIDERS: PCP Internal Medicine; Visit Provider Internal Medicine | DX: N64.89 Other specified disorders of breast (principal) | CPT/HCPCS: 76642 ==

== ENCOUNTER 2025-05-25 13:47 | Outpatient (REF) | payer MEDICARE, SELFPAY ==
--- OUTSIDE RECORDS SUMMARY | 2025-05-25 09:30 | XMS_ITS | Encounter Summary ---
Author Organization [facility] Address [address] [place] [address] Phone Care Team Providers Care Thermite Bomb Loader Name Role Phone Rakel Rodriguez MD Primary Care Provider [phone] Reason for Visit * Reason Comments Follow-up Rheumatoid arthritis involving multiple sites with positive rheumatoid factor Pain Encounter Details Date Type Department Care Team (Latest Contact Info) Description 05/25/2025 9:30 AM EDT Office Visit [facility] Rheumatology [address] [place] [address] Hayley Maxwell MD [address] [place] [address] [email or web address] Rheumatoid arthritis involving multiple sites with positive rheumatoid factor (Primary Dx); Primary osteoarthritis involving multiple joints; High risk medications (not anticoagulants) long-term use; Immunosuppression due to drug therapy Social History Tobacco Use Types Packs/Day Years Used Date Smoking Tobacco: Never Smokeless Tobacco: Never Alcohol Use Standard Drinks/Week Comments Not Currently 0 (1 standard drink = 0.6 oz pur e alcohol) Education Answer Date Recorded Are you interested in more education? Not on joe e 04/22/2023 Are you concerned about learning? Not on file 04/22/2023 No 04/22/2023 No 04/22/2023 Digital Access Answer Date Recorded No 04/22/2023 No 04/22/2023 Reliable internet access at home? Not on file 04/22/2023 Device with a working camera? Not on file Comments Unknown Sex and Gender Information Value Date Recorded Sex Assigned at Not on file Legal Sex Female 10:11 AM EDT Gender Identity Not on file Sexual Orientation Not on file documented as of this encounter Last Filed Vital Signs Vital Sign Reading Time Taken Comments Blood Pressure 124/60 05/25/2025 9:25 AM EDT Pulse 56 05/25/2025 9:25 AM EDT Temperature - - Respiratory Rate - - Oxygen Saturation 99% 05/25/2025 9:25 AM EDT Inhaled Oxygen Concentration - - Weight 53.3 kg (117 lb 6.4 oz) 05/25/2025 9:25 A M EDT Height - - Body Mass Index 22.18 04/09/2024 10:01 AM EDT documented in this encounter Patient Instructions * Patient Instructions* Hayley Maxwell MD - 05/25/2025 9:30 AM EDT Labs today Labs before the next visit Continue methotrexate, folic acid Pred as needed documented in this encounter Progress Notes * Hayley Maxwell MD - 05/25/2025 9:30 AM EDT Cheyanne Amador 1945 PRIMARY CARE PHYSICIAN/PROVIDER: Rakel Rodriguez MD [facility] [address] [place] [address] CHIEF COMPLAINT: Follow-up (Rheumatoid arthritis involving multiple sites with positive rheumatoid factor) and Pain HISTORY OF ILLNESS: Cheyanne Amador is a 79 y.o. female here for follow up for rheumatoid arthritis. Patient was last seen in rheumatology clinic on 01/28/2025. Patient has a longstanding history of rheumatoid arthritis on methotrexate and prednisone. She also has a known diagnosis of osteoarthritis mostly in the lower back and knees. Takes Tylenol as needed CURRENT RHEUM MEDS: Methotrexate 20 mg weekly Folic acid 1 mg daily Prednisone 20 mg monthly SUBJECTIVE: Patient denies any major flares She does occasionally have minor flares that she takes prednisone for She takes up to 4 tablets of prednisone a month Continues to have pain in her knees and lower back on and off Denies any joint pain, swelling, stiffness today REVIEW OF SYSTEMS: No fevers, chills, weight loss. No chest pain, shortness of breath, abdominal pain, nausea, vomiting, diarrhea. No dry eyes, mouth. No rash, photosensitivity, oral ulcers, nasal ulcers, Raynaud's. ALLERGIES: No Known Allergies PAST MEDICAL HISTORY: Past Medical History: Diagnosis Date Essential (primary) hypertension Mixed hyperlipidemia OA (osteoarthritis) Paroxysmal atrial fibrillation Rheumatoid arthritis PAST SURGICAL HISTORY: No past surgical history on file. FAMILY HISTORY: Family History Problem Relation Age of Onset Heart disease Father Cancer Brother melanoma Cancer Son colon SOCIAL HISTORY: Social History Tobacco Use Smoking status: Never Smokeless tobacco: Never Substance Use Topics Alcohol use: Not Currently Drug use: Never MEDICATIONS: Current Outpatient Medications Medication Sig Dispense Refill Last Dispense amiodarone (PACERONE) 200 MG tablet Take 1 tablet by mouth every morning. Unknown (patient-reported) amLODIPine (NORVASC) 10 MG tablet Take 5 mg by mouth every morning. Unknown (patient-reported) atorvastatin (LIPITOR) 40 MG tablet Take 1 tablet by mouth every morning. Unknown (patient-reported) Ca cit-D3-mag#80-srnz-wxdo-man-bor (CALTRATE 600+D) 600 mg calcium- 800 unit-50 mg Tab Take 1 tablet by mouth daily. Unknown (patient-reported) cholecalciferol (VITAMIN D3) 2,000 unit capsule Take 2,000 Units by mouth daily. Unknown (patient-reported) ELIQUIS 5 mg tablet Take 1 tablet by mouth 2 (two) times a day. Unknown (patient-reported) folic acid (FOLVITE) 800 MCG tablet Take 400 mcg by mouth daily. Unknown (patient-reported) levothyroxine (SYNTHROID,LEVOTHROID) 25 MCG tablet Take 25 mcg by mouth. Unknown (patient-reported) metoprolol succinate (TOPROL-XL) 50 MG 24 hr tablet Take 75 mg by mouth daily. Unknown (patient-reported) omeprazole (PRILOSEC) 20 MG capsule Unknown (patient-reported) traZODone (DESYREL) 50 MG tablet Take 50-100 mg by mouth nightly at bedtime as needed. Unknown (patient-reported) valsartan-hydroCHLOROthiazide (DIOVAN-HCT) 320-12.5 mg per tablet Take 1 tablet by mouth every morning. Unknown (patient-reported) vitamins A,C,O-xvjh-ydugfq (PRESERVISION AREDS) 4,296 mcg-226 mg-90 mg Cap Take 1 capsule by mouth 2 (two) times a day with meals. Unknown (patient-reported) methotrexate 2.5 MG Oral tablet Take 8 tablets (20 mg total) by mouth once a week. 104 tablet 1 Unknown (outside pharmacy) predniSONE (DELTASONE) 5 MG tablet Take 2 tablets (10 mg total) by mouth daily as needed (As neededfor flares). 60 tablet 1 Unknown (outside pharmacy) No current facility-administered medications for this visit. VITALS: Vitals: 05/25/25 0925 BP: 124/60 Pulse: (!) 56 SpO2: 99% Weight: 53.3 kg (117 lb 6.4 oz) PHYSICAL EXAM: Physical Exam Vitals reviewed. Constitutional: Appearance: Normal appearance. She is normal weight. HENT: Head: Normocephalic and atraumatic. Right Ear: External ear normal. Left Ear: External ear normal. Nose: Nose normal. Mouth/Throat: Mouth: Mucous membranes are moist. Pharynx: Oropharynx is clear. Eyes: Conjunctiva/sclera: Conjunctivae normal. Pupils: Pupils are equal, round, and reactive to light. Cardiovascular: Rate and Rhythm: Normal rate and regular rhythm. Pulses: Normal pulses. Heart sounds: Normal heart sounds. No murmur heard. No gallop. Pulmonary: Effort: Pulmonary effort is normal. No respiratory distress. Breath sounds: Normal breath sounds. No wheezing or rales. Musculoskeletal: Cervical back: Normal range of motion and neck supple. Comments: No synovitis, effusions. Multiple Heberden's and Paulina's nodes present on the hands bilaterally. Normal range of motion of the wrists, elbows, shoulders bilaterally. Skin: General: Skin is warm and dry. Findings: No rash. Neurological: General: No focal deficit present. Mental Status: She is alert and oriented to person, place, and time. Mental status is at baseline. Psychiatric: Mood and Affect: Mood normal. Behavior: Behavior normal. LAB: Labs reviewed Component Latest Ref Rng 01/28/2025 Sodium 133 - 146 mmol/L 143 Potassium 3.3 - 5.1 mmol/L 4.2 Chloride 96 - 108 mmol/L 106 Carbon Dioxide 21 - 35 mmol/L 29 BUN 6 - 19 mg/dL 12 Creatinine 0.5 - 1.5 mg/dL 0.90 Glucose 70 - 99 mg/dL 84 Albumin 3.9 - 4.8 g/dL 4.0 Total Protein 6.5 - 8.0 g/dL 6.6 Calcium 8.4 - 10.3 mg/dL 9.1 Alk Phos 39 - 117 U/L 82 Bilirubin (Total) 0.0 - 1.2 mg/dL 0.8 AST (SGOT) 0 - 37 U/L 17 ALT (SGPT) (U/L) 0 - 40 U/L 12 Globulin 1 - 4.8 g/dL 2.6 eGFR (Creatinine) >59 mL/min/1.73m2 66 Anion Gap 10 - 20 mmol/L 12 WBC 4.00 - 11.00 K/uL 8.13 RBC 4.00 - 5.20 M/uL 4.05 Hgb 12.0 - 16.0 g/dL 12.5 HCT 36.0 - 46.0 % 39.0 PLT 150 - 450 K/uL 258 MCV 80.0 - 100.0 fL 96.3 MCH 27.0 - 31.0 pg 30.9 MCHC 32.0 - 36.0 g/dL 32.1 RDW 11.5 - 14.5 % 15.6 (H) MPV 8.4 - 12.0 fL 10.7 NRBC% (auto) 0.00 /100 WBCs 0.00 NRBC#, auto 0.00 K/uL 0.00 ESR 0 - 30 mm/h 4 CRP (mg/L) 0.0 - 4.0 mg/L <3.0 RADIOLOGY: No new relevant radiology images DIAGNOSIS: 1. Rheumatoid arthritis involving multiple sites with positive rheumatoid factor 2. Primary osteoarthritis involving multiple joints 3. High risk medications (not anticoagulants) long-term use 4. Immunosuppression due to drug therapy Orders Placed This Encounter Procedures Comprehensive metabolic panel CBC Sedimentation rate (ESR) C-Reactive Protein Comprehensive metabolic panel CBC Sedimentation rate (ESR) C-Reactive Protein ASSESSMENT/PLAN: 79-year-old lady here for follow-up for rheumatoid arthritis, osteoarthritis Rheumatoid arthritis -Low disease activity -No synovitis on exam today -Recommend patient continue methotrexate 20 mg weekly-medication refilled today at this dose -Recommend patient continue prednisone as needed for flares, she takes it very sparingly during themonth-prescription refilled today -Continue folic acid 800 mcg daily-OTC -Monitoring labs to be obtained today and then prior to the next visit Osteoarthritis -Widespread, stable -Does not request any joint injections today High risk medications -Increased risk of immunosuppression due to medications, including risk of severe infections -Recommend compliance with medications, visits, labs as recommended to prevent adverse reactions -Recommend routine vaccinations including influenza and pneumococcal vaccines as per CDC schedule can also consider Shingrix -Avoid live vaccines while on the Biologics Return in about 4 months (around 09/24/2025) for Recheck. Note is dictated utilizing voice recognition software. Unfortunately, this may lead to very rare typographical errors. Please do not hesitate to contact our office if any questions arise. documented in this encounter Plan of Treatment Scheduled Orders Name Type Priority Associated Diagnoses Orde r Schedule Comprehensive metabolic panel Lab Routine Rheumatoid arthritis involving multiple sites with positive rheumatoid factor Expected: 05/25/2025, Expires: 05/25/2026 CBC Lab Routine Rheumatoid arthritis involving multiple sites with positive rheumatoid factor Expected: 05/25/2025, Expires: 05/25/2026 Sedimentation rate (ESR) Lab Routine Rheumatoid arthritis involving multiple sites with positive rheumatoid factor Expected: 05/25/2025, Expires: 05/25/2026 C-Reactive Protein Lab Routine Rheumatoid arthritis involving multiple sites with positive rheumatoid factor Expected: 05/25/2025, Expires: 05/25/2026 Comprehensive metabolic panel Lab Routine Rheumatoid arthritis involving multiple sites with positive rheumatoid factor Expected: 09/24/2025 (Approximate), Expires: 05/25/2026 CBC Lab Routine Rheumatoid arthritis involving multiple sites with positive rheumatoid factor Expected: 09/24/2025 (Approximate), Expires: 05/25/2026 Sedimentation rate (ESR) Lab Routine Rheumatoid arthritis involving multiple sites with positive rheumatoid factor Expected: 09/24/2025 (Approximate), Expires: 05/25/2026 C-Reactive Protein Lab Routine Rheumatoid arthritis involving multiple sites with positive rheumatoid factor Expected: 09/24/2025 (Approximate), Expires: 05/25/2026 documented as of this encounter Visit Diagnoses Diagnosis Rheumatoid arthritis involving multiple sites with positive rheumatoid factor- Primary Primary osteoarthritis involving multiple joints High risk medications (not anticoagulants) long-term use Encounter for long-term (current) use of other medications Immunosuppression due to drug therapy documented in this encounter Care Teams Thermite Bomb Loader Relationship Specialty Start Date End Date Cichon, Rakel S, MD 1959 [facility] [place] [address] PCP - General Internal Medicine 08/04/23 documented as of this encounter Additional Source Comments The information contained in this document represents components of the legal health record. It is not the complete legal health record.[facility]
[2025-05-25 16:18] LABS: MANUAL DIFF FLAG NO
[2025-05-25 16:28] LABS: Hematocrit 34.2 % (37.0-47.0); Hemoglobin 11.2 g/dl (12.0-16.0); Imm Gran Abs Auto 0.02 X10*3/uL (0.00-0.03); Imm Gran Pct Auto 0.4 % (0.0-0.4); Lymphocytes Absolute Auto 1.0 X10*3/uL (1.2-4.9); Mean Corpuscular HGB Conc 32.7 g/dl (31.0-35.0); Mean Corpuscular Hemoglobin 33.2 pg (27.0-33.0); Mean Corpuscular Volume 101.5 fL (80.0-98.0); NRBC Abs Auto 0.000 X10*3/uL (0.0-0.012); NRBC Pct Auto 0.0 /100WBC (0.0-0.2); Platelet Count 243 X10*3/uL (160-400); Red Blood Count 3.37 X10*6/uL (4.20-5.50); White Blood Count 5.5 X10*3/uL (4.8-10.8)
--- OUTSIDE RECORDS SUMMARY | 2025-05-25 16:53 | XMS_ITS | Encounter Summary ---
Author Organization [facility] Address [address] [place] [address] Phone Care Team Providers Care Sheet Sewer Name Role Phone Rakel Rodriguez MD Primary Care Provider [phone] Reason for Visit * Reason Onset Date Comments Appointment 05/25/2025 Encounter Details Date Type Department Care Team ([facility] st Contact Info) Description 05/25/2025 Telephone [facility] Rheumatology [address] [place] [address] Hayley Maxwell MD [address] [place] [address] [email or web address] Appointment Social History Tobacco Use Types Packs/Day Years [...] on file documented as of this encounter Progress Notes * Lakesha Reyes - 05/25/2025 9:54 AM EDT Pt will need a follow up with Dr. Wintre or Dr. Ernandez, but the schedules are not available. Return in about 4 months (around 09/24/2025) for Recheck. documented in this encounter Plan of Treatment Not on file documented as of this encounter Visit Diagnoses Not on filedocumented in this encounter Care Teams Sheet Sewer Relationship Specialty Start Date End Date Rakel Rodriguez MD [facility] [place] [address] PCP - General Internal Medicine 08/04/23 documented as of this encounter Additional Source Comments The information contained in this document represents components of the legal health record. It is not the complete legal health record.[facility]
--- OUTSIDE RECORDS SUMMARY | 2025-05-25 16:53 | XMS_ITS | Patient Health Record ---
[facility] Address [address] [place] [address] Care Team Providers Care Volcanology Teacher Name Role Phone Alec Sanford MD Primary Care Provider Unavailab Erki Horowitz Unavailable [phone] Reason For Referral No Information Medications Medication [...] Status W/U Status Risk Notes Problem Onychomycosis (497891489) Onychomycosis (110.1) Active confirmed Problem Pain in limb (66209459) Pain in Limb (729.5) Active confirmed Problem Ingrowing nail (372016123) Ingrowing Nail (703.0) Active confirmed Plan Of Treatment Pending Test Test Name Order Date [id number] NAIL, 6 OR MORE 01/06/2012 [id number] NAIL, 6 OR MORE 03/06/2012 [id number] Plate 10/02/2011 [id number]- Debride <25 sq cm 10/24/2011 Insurance Providers Payer Name Payer Address Payer Phone Subscriber Number Group Number Insured Name Patient Relationship to Insured Coverage Start Date Coverage End Date [facility] [address] [place] [address] [phone] [id number] Cheyanne Amador Self - patient is the insured Medical (General) History Medical History History ICD Code anxiety Arthritis back, hip, knee pain Cholesterol headaches/migraines hypertension osteoporosis sciatica stomach ulcer chicken pox Surgical History Surgery Date(Month/Year) breast biopsy
--- OUTSIDE RECORDS SUMMARY | 2025-05-25 16:54 | XMS_ITS | Clinical Summary ---
Author Organization [facility] Address [address] [facility] [place] [address] Phone Care Team Providers Care Military Professional Name Role Phone Rakel Rodriguez MD Primary Care Provider [phone] Allergies Active Allergy Reactions Criticality Noted Date [...] 40 mg by mouth daily. Active CALCIUM CARBONATE-VITAMIN D3 ORAL Calcium Carbonate-Rosey min D (CALCIUM-VITAM IN D) 600-125 MG-UNIT Tab Take by mouth. Active folic acid (FOLVITE) 1 mg tablet Take 800 mcg by mouth daily. Active methotrexate 2.5 mg tablet Take 8 tablets (20 mg total) by mouth 1 (one) time per week Active vit C/E/Zn/coppr/lute in/zeaxan (PRESERVISION AREDS-2 ORAL) Take by mouth 1 [...] (one) time each day before breakfast. Active valsartan-hydroCH LOROthiazide (DIOVAN-HCT) 160-12.5 mg per tablet Take 1 tablet by mouth 1 (one) time each day. Active metoprolol succinate (TOPROL-XL) 25 mg 24 hr tabletIndications :Paroxysmal atrial fibrillation (CMS/HCC V24, CMS/HCC V28) Take 1 tablet (25 mg total) by mouth 1 (one) time each day. Do not crush or chew. 30 each 11 5 04/12/20 26 Active Active Problems Problem Noted Date Diagnosed Date Nonrheumatic mitral valve regurgitation 04/12/20 25 Assessment & Plan (04/12/2025 10:11 AM EDT): The patient was noted to have mild to moderate MR on the echocardiogram done in November 2024. She is currently asymptomatic from a cardiac standpoint. Will order a follow-up echocardiogram to be done around November 2024. Orders: Transthoracic echocardiogram (TTE) complete with PRN contrast, bubble, strain, and 3D order panel; Future perflutren lipid microsphere (DEFINITY) 1.3 mL in sodium chloride 0.9% 8.7 mL injection Encounter for monitoring amiodarone therapy 09/16 Assessment & Plan (04/12/2025 10:11 AM EDT): The patient has a history of paroxysmal atrial fibrillation she is on rhythm control therapy with amiodarone 200 mg daily. Last laboratory testing from September 2024 showed normal LFTs and normal TSH level. Last PFT from 2023 which was normal. At this point, we will order a follow-up laboratory testing to reevaluate the LFTs and TSH level. Will also order chest x-ray for monitoring given her therapy with amiodarone. Orders: XR Chest 2 Views; Future Comprehensive metabolic panel; Future Thyroid stimulating hormone; Future Assessment & Plan (10/11/2024 10:03 AM EST): [...] to evaluate for progression. Assessment & Plan (04/12/2025 10:11 AM EDT): The patient has a history of a mild dilation of the ascending aorta. The ascending aorta measured 3.9 cm on the last echocardiogram in November 2024. Will order a follow-up echocardiogram to be done around November 2025 for reevaluation of the ascending aorta diameter. Orders: Transthoracic echocardiogram (TTE) complete with PRN contrast, bubble, strain, and 3D order panel; Future perflutren lipid microsphere (DEFINITY) 1.3 mL in sodium chloride 0.9% 8.7 mL injection Assessment & Plan (10/11/2024 10:03 AM EST): Mild dilation of aorta July 2023 at 3.8. Will update an echocardiogram to reevaluate for progression. Orders: Transthoracic echocardiogram (TTE) complete with PRN contrast, bubble, strain, and 3D order panel; Future Paroxysmal atrial fibrillation (CMS/HCC V24, CMS /HCC V28) 11/12/2021 Overview (08/17/2024): Last Assessment & Plan: [...] any cardiac complaints today. She has a [id number] score of 4 and continues on anticoagulation therapy with apixaban 5 mg orally twice daily based on her age, weight, and kidney function. No excessive bruising or bleeding reported. We will continue current therapies. Assessment & Plan (04/12/2025 10:11 AM EDT): The patient has a history of paroxysmal atrial fibrillation. The patient continues on rate control therapy with beta shayy with Toprol 50 mg orally daily. She is also on rhythm control therapy with amiodarone 200 mg orally daily. On today's visit, the patient was noted to have a heart rate of 47 bpm in the setting of sinus bradycardia. No evidence of high-grade AV block on the EKG. Given her bradycardia, we will decrease the dose of metoprolol from 50 mg orally daily to 25 mg orally daily. Will continue current dose of amiodarone. Also, the patient has an increased [id number] score and continues on anticoagulation therapy with apixaban. No episodes of abnormal bleeding have been noted. Will continue current therapy. Orders: metoprolol succinate (TOPROL-XL) 25 mg 24 hr tablet; Take 1 tablet (25 mg total) by mouth 1 (one) time each day. Do not crush or chew. XR Chest 2 Views; Future Comprehensive metabolic panel; Future Thyroid stimulating hormone; Future Transthoracic echocardiogram (TTE) complete with PRN contrast, bubble, strain, and 3D order panel; Future perflutren lipid microsphere (DEFINITY) 1.3 mL in sodium chloride 0.9% 8.7 mL injection Assessment & Plan (10/11/2024 10:03 AM EST): [...] medication regimen as prescribed. Assessment & Plan (04/12/2025 10:11 AM EDT): The patient has a history of arterial hypertension. The patient's blood pressure today was noted to be well controlled. We'll continue the current antihypertensive medication regimen. Assessment & Plan (10/11/2024 10:03 AM EST): [...] reassess her lipid control. Assessment & Plan (04/12/2025 10:11 AM EDT): The patient has a history of hyperlipidemia. The patient is currently on atorvastatin 40 mg orally daily. We will order a new lipid panel to evaluate the patient's current lipid control and determine if any adjustment are needed in the lipid lowering therapy. Orders: Lipid panel; Future Assessment & Plan (10/11/2024 10:03 AM EST): [...] Encounters Date Type Department Care Team Description 04/12/2025 10:39 AM EDT - 04/12/2025 11:59 PM EDT Hospital Encounter [facility] Xray [address] [place] [address] Paroxysmal atrial fibrillation ([facility] V24, [facility] V28); Encounter for monitoring amiodarone therapy Discharge Disposition: Home or Self Care 04/12/2025 9:50 AM EDT Office Visit [facility] [address] [place] [id number] Fay Tobin MD Paroxysmal atrial fibrillation (CMS/HCC V24, CMS/HCC V28) (Primary Dx); Aneurysm of ascending aorta without rupture (CMS/HCC V24); Primary hypertension; Mixed hyperlipidemia; Encounter for monitoring amiodarone therapy; Nonrheumatic mitral valve regurgitation; Atrial fibrillation, unspecified type (CMS/HCC V24, CMS/HCC V28) from Last 3 Months Surgical History Surgery Date Site/Laterality Comments BREAST LUMPECTOMY Right PROCEDURE: HISTORICAL BREAST LUMPECTOMY Medical History Medical History Date Comments Rheumatoid arthritis ([facility]/HC C V24, CMS/HCC V28) DX:Rheumatoid arthritis (HCC ) Spinal stenosis of lumbar region DX:Spinal [...] Sign Reading Time Taken Comments Blood Pressure 110/60 04/12/2025 9:33 AM EDT Pulse 47 04/12/2025 9:33 AM EDT Temperature - - Respiratory Rate - - Oxygen Saturation 97% 04/12/2025 9:33 AM EDT Inhaled Oxygen Concentration - - Weight 54.9 kg (121 lb) 04/12/2025 9:33 AM EDT Height 160 cm (5' 3 ) 04/12/2025 9:33 AM EDT Body Mass Index 21.43 04/12/2025 9:33 AM EDT Plan of Treatment Upcoming Encounters Date Type Department Care Team (Late st Contact Info) Description 11/21/2025 10:00 AM EDT Ancillary Procedure [facility] [address] [place] [address] Health Maintenance Due Date Last Done Comments DTaP,Tdap,and Td Vaccines (1 - Tdap) 1964 Zoster Vaccines (2 of 3) 08/21/2012 06/26/2012 Falls Risk Assessment 08/25/2022 Hepatitis C Screening 08/25/2022 Medicare Annual Wellness Visit 08/25/2022 Osteoporosis Screening (Bone Density Screening) 08/25/2022 Social Influencers of Health Screening 08/25/2022 RSV Immunization Adult Patients (1 - 1-dose 75+ series) 2022 Depression Screening 09/15/2024 COVID-19 Vaccine (8 - Pfizer risk season) 2025 06/09/2024, 06/21/2023, 06/26/2022, Additional history exists Influenza Vaccine (#1) 2025 , 05/23/2023, 06/21/2022, Additional history exists Hypertension/CHF/CAD Annual BMP Blood Test 04/12/2026 04/12/2025, 01/28/2025, 10/11/2024, Additional history exists Cholesterol Screening (Lipid Panel) 04/12/2030 04/12/2025 Pneumococcal Vaccine: 50+ Years Completed 02/21/2025, 06/07/2019, 06/12/2016 HIB Vaccines Aged Out No longer eligi [...] Procedure Name Priority Date/Time Associated Diagnosis Comments XR CHEST 2 VIEWS Routine 04/12/2025 10:5 8 AM EDT Paroxysmal atrial fibrillation (CMS/HCC V24, CMS/HCC V28) Encounter for monitoring amiodarone therapy LIPID PANEL STAT 04/12/2025 10:19 AM EDT Mixed hyperlipidemia THYROID STIMULATING HORMONE STAT 04/12/2025 10:19 AM EDT Paroxysmal atrial fibrillation (CMS/HCC V24, CMS/HCC V28) Encounter for monitoring amiodarone therapy COMPREHENSIVE METABOLIC PANEL STAT 04/12/2025 10:19 AM EDT Paroxysmal atrial fibrillation (CMS/HCC V24, CMS/HCC V28) Encounter for monitoring amiodarone therapy ECG 12-LEAD Routine 04/12/2025 9:46 AM EDT Atrial fibrillation, unspecified type (CMS/HCC V24, CMS/HCC V28) from Last 3 Months Results * XR Chest 2 Views (04/12/2025 10:58 AM EDT) Anatomical Region Laterality Modality Body Radiographic Zainab ging 04/12/2025 11:3 0 AM EDT Impressions 04/12/2025 11:32 AM EDT No acute chest disease. No significant interstitial lung abnormalities demonstrated. -------- FINAL REPORT -------- Dictated By: Bowen Choudhury Dictated Date: 04/12/2025 11:30 ET Assigned Physician: Bowen Choudhury Reviewed and Electronically Signed By: Bowen Choudhury Signed Date: 04/12/2025 11:32 ET Workstation ID: [id number] Transcribed By: Self Edit Transcribed Date: 04/12/2025 11:30 ET Narrative 04/12/2025 11:32 AM EDT EXAMINATION: CHEST CLINICAL INFORMATION: On amiodarone. COMPARISON: Portable frontal view 10/04/21 TECHNIQUE: 2 views of the chest FINDINGS: There is lordosis. There is calcification of the aortic arch. The cardiac size is top normal. There is no mediastinal or hilar mass. Relatively large lung volumes. There is no generalized interstitial lung abnormality suggested. No pneumothorax. Chronic rotator cuff disease on the right. There is scoliosis with degenerative change in the spine and there is extensive arterial calcification. Procedure Note Bowen Choudhury MD - 04/12/2025 EXAMINATION: CHEST CLINICAL INFORMATION: On amiodarone. COMPARISON: Portable frontal view 10/04/21 TECHNIQUE: 2 views of the chest FINDINGS: There is lordosis. There is calcification of the aortic arch. The cardiacsize is top normal. There is no mediastinal or hilar mass. Relatively large lung volumes. There is no generalized interstitial lungabnormality suggested. No pneumothorax. Chronic rotator cuff disease on the right. There is scoliosis withdegenerative change in the spine and there is extensive arterialcalcification. IMPRESSION: No acute chest disease. No significant interstitial lung abnormalitiesdemonstrated. -------- FINAL REPORT -------- Dictated By: Bowen Choudhury Dictated Date: 04/12/2025 11:30 ET Assigned Physician: Bowen Choudhury Reviewed and Electronically Signed By: Bowen Choudhury Signed Date: 04/12/2025 11:32 ET Workstation ID: [id number] Transcribed By: Self Edit Transcribed Date: 04/12/2025 11:30 ET Result [facility] Fay Tobin MD IMG XR PROCEDURES Geetha l Result * Thyroid stimulating hormone (04/12/2025 10:19 AM EDT) [facility] TSH 2.530 0.450 - 4.500 uIU/mL [facility] 1 Blood Venous blood specimen / Unknown 04/12/2025 10:19 AM EDT 04/12/2025 Narrative [facility] 1 - 04/13/2025 1:06 AM EDT Performed at: - [facility] [id number] Manager Hospitality: Kitty Morocho MD, Phone: [phone] Fay Tobin MD LAB BLOOD ORDERABLES F inal Result Performing Organization Address [facility] de Phone Number [facility] 1 * Lipid panel (04/12/2025 10:19 AM EDT) [facility] Cholesterol Total 119 100 - 199 mg/dL [facility] 1 Triglycerides 78 0 - 149 mg/dL [facility] 1 HDL Cholesterol 50 >39 mg/dL [facility] 1 VLDL Cholesterol Calculated 16 5 - 40 mg/dL [facility] 1 LDL Chol Calc (NIH) 53 0 - 99 mg/dL [facility] 1 Blood Venous blood specimen / Unknown 04/12/2025 10:19 AM EDT 04/12/2025 Narrative [facility] 1 - 04/13/2025 1:06 AM EDT Performed at: - [facility] [id number] Manager Hospitality: Kitty Morocho MD, Phone: [phone] Fay Tobin MD LAB BLOOD ORDERABLES F inal Result Performing Organization Address [facility]/ZIP Co de Phone Number [facility] 1 * (ABNORMAL) Comprehensive metabolic panel (04/12/2025 10:19 AM EDT) [facility] Glucose 88 70 - 99 mg/dL [facility] 1 Blood Urea Nitrogen (BUN) 14 8 - 27 mg/dL [facility] 1 Creatinine 1.02(H) 0.57 - 1.00 mg/dL [facility] 1 eGFR 57(L) >59 mL/min/1. 73 [facility] 1 BUN/Creatinine Ratio 14 12 - 28 [facility] 1 Sodium 144 134 - 144 mmol/L [facility] 1 Potassium 4.5 3.5 - 5.2 mmol/L [facility] 1 Chloride 106 96 - 106 mmol/L [facility] 1 Carbon Dioxide 26 20 - 29 mmol/L [facility] 1 Calcium 9.1 8.7 - 10.3 mg/dL [facility] 1 Protein Total 5.7(L) 6.0 - 8.5 g/dL [facility] 1 Albumin 4.2 3.8 - 4.8 g/dL [facility] 1 Globulin Total 1.5 1.5 - 4.5 g/dL [facility] 1 Bilirubin Total 0.7 0.0 - 1.2 mg/dL [facility] 1 Alkaline Phosphatase 71 44 - 121 IU/L [facility] 1 Aspartate aminotransferase (AST) 12 0 - 40 IU/L [facility] 1 Alanine Aminotransferase (ALT) 13 0 - 32 IU/L [facility] 1 Blood Venous blood specimen / Unknown 04/12/2025 10:19 AM EDT 04/12/2025 Narrative [facility] 1 - 04/13/2025 1:06 AM EDT Performed at: [facility] [id number] Manager Hospitality: Kitty Morocho MD, Phone: [phone] us Fay Tobin MD LAB BLOOD ORDERABLES F inal Result [facility] 1 * ECG 12 lead (04/12/2025 9:46 AM EDT) [facility] Ventricular Rate ECG 47 BPM GEMUSE Atrial Rate 47 BPM GEMUSE P-R Interval 194 ms GEMUSE QRS Duration 102 ms GEMUSE Q-T Interval 532 ms GEMUSE QTc 470 ms GEMUSE P Wave Davis 51 degrees GEMUSE R Davis 60 degrees GEMUSE T Davis 16 degrees GEMUSE ECG Interpretation Sinus bradycardia Poor R wave progression Nonspecific T wave abnormality Abnormal ECG When compared with ECG of 11-OCT-2024 09:36, Criteria for Inferior infarct are no longer Present Confirmed by FAY TOBIN ([id number]) on 04/12/2025 9:53:37 AM GEMUSE 04/12/2025 9:46 AM EDT 04/12/2025 9:53 AM EDT us Fay Tobin MD ECG ORDERABLES Final Result GEMUSE from Last 3 Months [facility] Care Teams Military Professional Relationship Specialty Start Date End Date Rakel Rodriguez MD [address] [place] [phone] PCP - General Internal Medicine 10/11/24
--- OUTSIDE RECORDS SUMMARY | 2025-05-25 16:54 | XMS_ITS | Encounter Summary ---
Author Organization [facility] Address [address] [place] [address] Phone Care Team Providers Care Order Runner Name Role Phone Rakel Rodriguez MD Primary Care Provider [phone] Reason for Visit * Reason Comments Medication Refill Encounter Details Date Type Department Care Team ([facility] Contact Info) Description 02/23/2025 Refill [facility] Rheumatology [address] [place] [address] Emily Sequeira MD [address] [facility] [address], [address] [place] [address] [email or web address] Medication Refill Social History Tobacco Use Types Packs/Day Years [...] as of this encounter Progress Notes * Esha Bond MA - 02/23/2025 10:04 AM EDT Prescription was for as needed. Patient needs to contact office to request refill. documented in this encounter Plan of Treatment Not on file documented as of this encounter Visit Diagnoses Not on filedocumented in this encounter Care Teams Order Runner Relationship Specialty Start Date End Date Rakel Rodriguez MD [address] [facility] [place] [address] PCP - General Internal Medicine 08/04/23 documented as of this encounter Additional Source Comments The information contained in this document represents components of the legal health record. It is not the complete legal health record.[facility]
--- OUTSIDE RECORDS SUMMARY | 2025-05-25 16:54 | XMS_ITS | Clinical Summary ---
Author Organization [facility] Address [address] [place] [address] Phone Care Team Providers Care Locomotive Lubricating Systems Clerk Name Role Phone Rakel Rodriguez MD Primary Care Provider [phone] Allergies No known active allergies Medications amiodarone (PACERONE) 200 MG tablet Take 1 tablet by mouth every morning. 05/19/20 23 Active amLODIPine (NORVASC) 10 MG tablet Take 5 mg by mouth every morning. 06/08/20 23 Active ELIQUIS 5 mg tablet Take 1 tablet by mouth 2 (two) times a day. 07/18/20 23 Active atorvastatin (LIPITOR) 40 MG tablet Take 1 tablet by mouth every morning. 05/20/20 23 Active omeprazole (PRILOSEC) 20 MG capsule 08/01/20 23 Active traZODone (DESYREL) 50 MG tablet Take 50-100 mg by mouth nightly at bedtime as needed. 05/19/20 23 Active cholecalcifero l (VITAMIN D3) 2,000 unit capsule Take 2,000 Units by mouth daily. Active vitamins A,C,E-zinc-type copyist per (PRESERVISION AREDS) 4,296 mcg-226 mg-90 mg Cap Take 1 capsule by mouth 2 (two) times a day with meals. Active folic acid (FOLVITE) 800 MCG tablet Take 400 mcg by mouth daily. Active Ca cit-D3-mag#11- flfp-ucqi-dmq- bor (CALTRATE 600+D) 600 mg calcium- 800 unit-50 mg Tab Take 1 tablet by mouth daily. Active metoprolol succinate (TOPROL-XL) 50 MG 24 hr tablet Take 75 mg by mouth daily. Active levothyroxine (SYNTHROID,LEV OTHROID) 25 MCG tablet Take 25 mcg by mouth. 04/07/20 24 Active valsartan-hydr oCHLOROthiazid e (DIOVAN-HCT) 320-12.5 mg per tablet Take 1 tablet by mouth every morning. 02/17/20 24 Active predniSONE (DELTASONE) 5 MG tablet Take 2 tablets (10 mg total) by mouth daily as needed (As needed for flares). 60 tablet 1 05/25/20 25 Active methotrexate 2.5 MG Oral tabletIndicati ons:Rheumatoid arthritis involving multiple sites with positive rheumatoid factor Take 8 tablets (20 mg total) by mouth once a week. 104 tablet 1 05/25/20 25 Active methotrexate 2.5 MG Oral tabletIndicati ons:Rheumatoid arthritis involving multiple sites with positive rheumatoid factor Take 8 tablets (20 mg total) by mouth once a week. 48 tablet 03/30/20 25 025 Discontinued predniSONE (DELTASONE) 5 MG tablet Take 2 tablets (10 mg total) by mouth daily as needed (As needed for flares). 60 tablet 1 03/30/20 25 025 Discontinued(Re order) methotrexate 2.5 MG Oral tabletIndicati ons:Rheumatoid arthritis involving multiple sites with positive rheumatoid factor TAKE 8 TABLETS (20 MG TOTAL) BY MOUTH ONCE A WEEK. 32 tablet 05/10/20 25 025 Discontinued(Re order) Active Problems Problem Noted Date Diagnosed Date Rheumatoid arthritis involvi ng multiple sites with positive rheumatoid factor 08/04/2023 Assessment & Plan (04/12/2024 9:06 AM EDT): Seropositive rheumatoid arthritis very well-controlled on methotrexate 8 tablets weekly and daily folic acid. She has no synovitis or swelling. She can use prednisone as needed for occasional flares of hand swelling. Sent her for some baseline labs today. Assessment & Plan (12/03/2023 4:07 PM EDT): Seropositive rheumatoid arthritis well-controlled on methotrexate 8 tablets weekly and daily folic acid. She has no active synovitis or swelling. Continue with the same dose of medicine. Can use prednisone 15 to 20 mg a few days in a row for a flare. Sent her for some baseline labs today. Assessment & Plan (08/04/2023 11:58 AM EST): Positive rheumatoid arthritis well-controlled on methotrexate 8 tablets weekly and a daily folic acid. She has no stiffness and no active swelling. Continue with same dose of methotrexate. Sent her for some baseline labs today. Primary osteoarthritis involving multiple joints 08/04/2023 Assessment & Plan (04/12/2024 9:06 AM EDT): Osteoarthritis in multiple joints very well-controlled on Tylenol 650 mg as needed as well as topical Voltaren gel. Assessment & Plan (12/03/2023 4:07 PM EDT): Osteoarthritis in multiple joints with no active swelling. She can take Tylenol 650 mg as needed. Assessment & Plan (08/04/2023 11:58 AM EST): Osteoarthritis in multiple areas with no jackie swelling. She can take Tylenol as needed for pain. Encounters Date Type Department Care Team Description 05/25/2025 9:30 AM EDT Office Visit [facility] [address] [place] [address] [place] [address] Hayley Maxwell MD Rheumatoid arthritis involving multiple sites with positive rheumatoid factor (Primary Dx); Primary osteoarthritis involving multiple joints; High risk medications (not anticoagulants) long-term use; Immunosuppression due to drug therapy 05/25/2025 Telephone [facility] [address] [place] [address] [place] [address] Hayley Maxwell MD Appointment 05/10/2025 Refill [facility] [address] [place] [address] [place] [address] Hayley Maxwell MD Medication Refill 05/06/2025 Telephone [facility] [address] [place] [address] Hayley Maxwell MD labs prior to visit 02/23/2025 Refill [facility] [address] [place] [address] [place] [address] Emily Sequeira MD Medication Refill from Last 3 Months Family History Medical History Relation Comments Cancer Brother melanoma Heart disease Father Cancer Son colon Relation Status Comments Brother Alive Daughter Alive Father Mother Sister Son Alive Social History Tobacco Use Types Packs/Day Years Used Date Smoking Tobacco: Never Smokeless Tobacco: Never Tobacco Cessation:Counseling Given: Not Answered Alcohol Use Standard Drinks/Week Comments Not Currently [...] on file Sexual Orientation Not on file Last Filed Vital Signs Vital Sign Reading Time Taken Comments Blood Pressure 124/60 05/25/2025 9:25 AM EDT Pulse 56 05/25/2025 9:25 AM EDT Temperature - - Respiratory Rate - - Oxygen Saturation 99% 05/25/2025 9:25 AM EDT Inhaled Oxygen Concentration - - Weight 53.3 kg (117 lb 6.4 oz) 05/25/2025 9:25 A M EDT Height 154.9 cm (5' 1 ) 04/09/2024 10:01 AM EDT Body Mass Index 22.18 04/09/2024 10:01 AM EDT Plan of Treatment Health Maintenance Due Date Last Done Comments Adult Td,Tdap Booster 1945 TSH LEVEL 1945 DEPRESSION SCREENING 1959 HEPATITIS C SCREENING 1965 ZOSTER VACCINES (1 of 2) 08/21/2012 06/26/2012 OSTEOPOROSIS SCREENING INITIAL (ONE-TIME) 2012 RSV VACCINE (1 - 1-dose 75+ series) 2022 ALT LEVEL (ALANINE AMINOTRANSFERASE) 01/28/2026 01/28/2025, 04/09/2024, 12/03/2023, Additional history exists CREATININE LEVEL 01/28/2026 01/28/2025, , 12/03/2023, Additional history exists POTASSIUM LEVEL 01/28/2026 01/28/2025, 03/16, 12/03/2023, Additional history exists LIPID PANEL 04/12/2030 04/12/2025 PNEUMOCOCCAL VACCINES (50+ years) Completed 02/21/2025, 06/07/2019, 06/12/2016 COVID-19 VACCINE Completed 05/20/2025, , 06/21/2023, Additional history exists INFLUENZA VACCINE Completed 05/20/2025, , 05/23/2023, Additional history exists SMOKING STATUS SCREENING (Once After 26 Yrs) Completed 05/25/2025 HEPATITIS A VACCINES Aged Out No long er eligible based on patient's age to complete this topic HIB VACCINES Aged Out No longer eligi ble based on patient's age to complete this topic MENINGOCOCCAL VACCINES (ACWY) Aged Out No longer eligible based on patient's age to complete this topic MENINGOCOCCAL VACCINES (B) Aged Out N o longer eligible based on patient's age to complete this topic Medical Devices Not on file Procedures Procedure Name Priority Date/Time Associated Diagnosis Comments COMPREHENSIVE METABOLIC PANEL Routine 01/28/2025 11:23 AM EDT Rheumatoid arthritis involving multiple sites with positive rheumatoid factor from Last 3 Months or Most Recently Relevant to Health Maintenance Results * Comprehensive metabolic panel (01/28/2025 11:23 AM EDT) SODIUM 143 133 - 146 mmol/L [facility] POTASSIUM 4.2 3.3 - 5.1 mmol/L [facility] CHLORIDE 106 96 - 108 mmol/L [facility] CO2 29 21 - 35 mmol/L [facility] BUN 12 6 - 19 mg/dL [facility] CREATININE 0.90 0.5 - 1.5 mg/dL [facility] GLUCOSE 84 70 - 99 mg/dL [facility] ALBUMIN 4.0 3.9 - 4.8 g/dL [facility] TOTAL PROTEIN 6.6 6.5 - 8.0 g/dL [facility] CALCIUM 9.1 8.4 - 10.3 mg/dL [facility] ALKALINE PHOSPHATASE 82 39 - 117 U/L [facility] TOTAL BILIRUBIN 0.8 0.0 - 1.2 mg/dL [facility] AST 17 0 - 37 U/L [facility] ALT 12 0 - 40 U/L [facility] GLOBULIN 2.6 1 - 4.8 g/dL [facility] EGFR 66 >59 mL/min/1.7 3m2 [facility] Comment:Estimated glomerular filtration rate calculated using the CKD-EPI refit equation. ANION GAP 12 10 - 20 mmol/L [facility] Blood 01/28/2025 11:2 3 AM EDT 01/28/2025 11:26 AM EDT us Hayley Maxwell MD LAB BLOOD ORDERABLES Final Res ult [facility] [address] [place] [address] from Last 3 Months or Most Recently Relevant to Health Maintenance Insurance MEDICARE PART A & B [employer] MEDEX SUPPLEMENT MEDICARE PART A & B [id number] MEDEX SUPPLEMENT MEDICARE PART A & B Yodo1 MEDEX SUPPLEMENT MEDICARE PART A & B Yodo1 MEDEX SUPPLEMENT MEDICARE PART A & B Yodo1 MEDEX SUPPLEMENT MEDICARE PART A & B [facility] MEDEX SUPPLEMENT Care Teams Locomotive Lubricating Systems Clerk Relationship Specialty Start Date End Date Rakel Rodriguez MD [address] [place] [address] PCP - General Internal Medicine 08/04/23 Additional Source Comments The information contained in this document represents components of the legal health record. It is not the complete legal health record.[facility]
[2025-05-25 17:26] LABS: Alanine Aminotransferase 19 U/L (0-31); Albumin Level 4.0 g/dL (3.5-5.0); Alkaline Phosphatase 63 U/L (39-117); Anion Gap 13 (12-20); Aspartate Amino Transferase 24 U/L (5-31); Blood Urea Nitrogen 15 mg/dL (9-16); Calcium 9.6 mg/dL (8.4-10.2); Carbon Dioxide 28 mmol/L (22-29); Chloride 110 mmol/L (96-108); Estimated Glomerular Filt Rate 54; Potassium 3.7 mmol/L (3.3-5.1); Sodium 147 mmol/L (135-145); Total Protein 5.9 g/dL (6.5-8.0)
== END 2025-05-25 13:48 | disposition home or self-care (01) ==
LOC: HO.HMGCLDS 13:47
PROVIDERS: PCP Internal Medicine; Visit Provider Internal Medicine Rheumatology
DX: M05.79 Rheumatoid arthritis with rheumatoid factor of multiple sites without organ or systems involvement (principal)
CPT/HCPCS: 36415; 80053; 85025; 85652; 86140

== ENCOUNTER 2025-08-15 13:15 | Outpatient (REF) | payer MEDICARE, SELFPAY ==
[2025-08-15 16:10] LABS: MANUAL DIFF FLAG NO
[2025-08-15 16:27] LABS: Hematocrit 39.1 % (37.0-47.0); Hemoglobin 12.9 g/dl (12.0-16.0); Imm Gran Abs Auto 0.01 X10*3/uL (0.00-0.03); Imm Gran Pct Auto 0.2 % (0.0-0.4); Lymphocytes Absolute Auto 1.1 X10*3/uL (1.2-4.9); Mean Corpuscular HGB Conc 33.0 g/dl (31.0-35.0); Mean Corpuscular Hemoglobin 32.7 pg (27.0-33.0); Mean Corpuscular Volume 99.0 fL (80.0-98.0); NRBC Abs Auto 0.000 X10*3/uL (0.0-0.012); NRBC Pct Auto 0.0 /100WBC (0.0-0.2); Platelet Count 254 X10*3/uL (160-400); Red Blood Count 3.95 X10*6/uL (4.20-5.50); White Blood Count 5.3 X10*3/uL (4.8-10.8)
--- OUTSIDE RECORDS SUMMARY | 2025-08-15 16:53 | XMS_ITS | Clinical Summary ---
Author Organization [facility] Address [address] [place] [address] Phone Care Team Providers Care Radiotelegraph Operator Name Role Phone Rakel Rodriguez MD Primary Care Provider [phone] Allergies Active Allergy Reactions Criticality Noted Date [...] mouth 1 (one) time each day. Active traZODone (DESYREL) 50 mg tablet Take [...] 30 each 11 5 04/12/20 26 Active omeprazole (PriLOSEC) [address] capsule Take 1 capsule (20 mg total) by mouth 1 (one) time each day. Do not crush or chew. 90 capsule 1 5 Active Active Problems Problem Noted Date Diagnosed [...] any cardiac complaints today. She has a [id number]-[id number] score of 4 and continues on anticoagulation [...] amiodarone. Also, the patient has an increased [id number] score and continues on anticoagulation therapy with [...] routine medical care. Peripheral venous insufficiency 11/08/2021 Surgical History Surgery Date Site/Laterality Comments BREAST LUMPECTOMY Right PROCEDURE: HISTORICAL BREAST LUMPECTOMY Medical History Medical History Date Comments Rheumatoid arthritis (CMS/HC C V24, CMS/HCC V28) DX:Rheumatoid arthritis (HCC [...] Care Team (Late st Contact Info) Description 10/19/2025 1:10 PM EST Office Visit [facility] [address] [place] [phone] Jayshree Ribera NP [address] [place] [address] [place] [phone] 11/21/2025 10:00 AM EDT Ancillary Procedure [facility] [address] [place] [phone] 12/21/2025 2:40 PM EDT Office Visit Gastroenterology - [address] [place] [phone] Myah Padilla PA [address] [place] [address] Health Maintenance Due Date Last Done Comments DTaP,Tdap,and Td Vaccines (1 - Tdap) 1966 Zoster Vaccines (2 of 3) 08/21/2012 06/26/2012 Falls Risk Assessment 08/25/2022 Hepatitis C Screening 08/25/2022 Medicare Annual Wellness Visit 08/25/2022 Osteoporosis Screening (Bone Density Screening) 08/25/2022 Social Influencers of Health Screening 08/25/2022 RSV Immunization Adult Patients (1 - 1-dose 75+ series) 2022 Depression Screening 09/15/2024 COVID-19 Vaccine ( season) 2025 06/09/2024, 06/21/2023, 06/26/2022, Additional history [...] Date/Time Associated Diagnosis Comments COMPREHENSIVE METABOLIC PANEL STAT 04/12/2025 10:19 AM EDT Paroxysmal atrial fibrillation ([facility] V24, [facility] V28) Encounter for monitoring amiodarone therapy LIPID PANEL STAT 04/12/2025 10:19 AM EDT Mixed hyperlipidemia from Last 3 Months or Most Recently Relevant to Health Maintenance Results * Lipid panel (04/12/2025 10:19 AM EDT) Cholesterol Total 119 100 - 199 mg/dL [...] - 04/13/2025 1:06 AM EDT Performed at: 01 - [facility] [id number] Plum Packer: Kitty Morocho MD, Phone: [phone] Sajan Cho MD LAB BLOOD ORDERABLES F inal Result [facility] 1 * (ABNORMAL) Comprehensive metabolic panel (04/12/2025 10:19 AM EDT) Pathologist [facility] Glucose 88 70 - 99 mg/dL [facility] [...] - 04/13/2025 1:06 AM EDT Performed at: 01 - [facility] [address] [id number] Plum Packer: Kitty Morocho MD, Phone: [phone] Sajan Cho MD LAB BLOOD ORDERABLES F inal Result [facility] 1 from Last 3 Months or Most Recently Relevant to Health Maintenance Insurance MEDICARE [facility] Care Teams Radiotelegraph Operator Relationship Specialty Start Date End Date Rakel Rodriguez MD [address] [place] [address] PCP - General Internal Medicine 10/11/24
--- OUTSIDE RECORDS SUMMARY | 2025-08-15 16:53 | XMS_ITS | Clinical Summary ---
Author Organization [facility] Address [address] [facility] [address] [place] [address] Phone Care Team Providers Care Customer Assistance Representative Name Role Phone Rakel Rodriguez MD Primary Care Provider [phone] Allergies No known active allergies Medications amiodarone (PACERONE) 200 MG tablet Take 1 tablet by mouth every morning. 3 Active amLODIPine (NORVASC) 10 MG tablet Take 5 mg by mouth every morning. 3 Active ELIQUIS 5 mg tablet Take 1 tablet by mouth 2 (two) times a day. 3 Active atorvastatin (LIPITOR) 40 MG tablet Take 1 tablet by mouth every morning. 3 Active omeprazole (PRILOSEC) 20 MG capsule 3 Active traZODone (DESYREL) 50 MG tablet Take 50-100 mg by mouth nightly at bedtime as needed. 3 Active cholecalcifero l (VITAMIN D3) 2,000 unit capsule Take 2,000 Units by mouth daily. Active vitamins A,C,E-zinc-photocopier technician per (PRESERVISION AREDS) 4,296 mcg-226 mg-90 mg Cap Take 1 capsule by mouth 2 (two) times a day with meals. Active folic acid (FOLVITE) 800 MCG tablet Take 400 mcg by mouth daily. Active Ca cit-D3-mag#11- vejr-dvjp-fiq- bor (CALTRATE 600+D) 600 mg calcium- 800 unit-50 mg Tab Take 1 tablet by mouth daily. Active metoprolol succinate (TOPROL-XL) 50 MG 24 hr tablet Take 75 mg by mouth daily. Active levothyroxine (SYNTHROID,LEV OTHROID) 25 MCG tablet Take 25 mcg by mouth. 4 Active valsartan-hydr oCHLOROthiazid e (DIOVAN-HCT) 320-12.5 mg per tablet Take 1 tablet by mouth every morning. 4 Active methotrexate 2.5 MG Oral tabletIndicati ons:Rheumatoid arthritis involving multiple sites with positive rheumatoid factor Take 8 tablets (20 mg total) by mouth once a week. 104 tablet 1 5 Active predniSONE (DELTASONE) 5 MG tablet 2 tablets by mouth per day x 7 days if needed for a flareup. Take with food and water. 30 tablet 5 Active predniSONE (DELTASONE) 5 MG tablet Take 2 tablets (10 mg total) by mouth daily as needed (As needed for flares). 60 tablet 1 5 07/20/20 25 Discontinued Active Problems Problem Noted Date Diagnosed Date [...] Encounters Date Type Department Care Team Description 07/20/2025 Refill [facility] [address] [place] [address] [place] [address] Hayley Maxwell MD Medication Refill 05/26/2025 Orders Only [facility] [address] [place] [address] [place] [address] Esha Bond MA Rheumatoid arthritis involving multiple sites with positive rheumatoid factor 05/25/2025 9:30 AM EDT Office Visit [facility] [address] [place] [address] [place] [address] Hayley Maxwell MD Rheumatoid arthritis involving multiple sites with positive rheumatoid factor (Primary Dx); Primary osteoarthritis involving multiple joints; High risk medications (not anticoagulants) long-term use; Immunosuppression due to drug therapy 05/25/2025 Telephone [facility] [address] [place] [address] [place] [address] Hayley Maxwell MD Appointment from Last 3 Months Family History Medical [...] 04/09/2024 10:01 AM EDT Plan of Treatment Upcoming Encounters Date Type Department Care Team (Late st Contact Info) Description 10/06/2025 10:00 AM EST Office Visit [facility] [address] [place] [address] Kaylah Winter DO [address] [place] [address], [address] [place] [address] [email or web address] Health Maintenance Due Date Last Done Comments Adult Td,Tdap Booster 1945 TSH LEVEL 1945 DEPRESSION SCREENING 1959 HEPATITIS C SCREENING 1965 ZOSTER VACCINES (1 of 2) 08/21/2012 06/26/2012 OSTEOPOROSIS SCREENING INITIAL (ONE-TIME) 2012 RSV VACCINE (1 - 1-dose 75+ series) 2022 COVID-19 VACCINE (9 - Pfizer risk 2024- season) 2025 05/20/2025, 06/09/2024, 06/21/2023, Additional history exists ALT LEVEL (ALANINE AMINOTRANSFERASE) 01/28/2026 01/28/2025, 04/09/2024, 12/03/2023, Additional history exists POTASSIUM LEVEL 01/28/2026 01/28/2025, 07/02/2024, 12/03/2023, Additional history exists CREATININE LEVEL 05/25/2026 05/25/2025, , 04/09/2024, Additional history exists LIPID PANEL 04/12/2030 04/12/2025 PNEUMOCOCCAL VACCINES (50+ years) Completed 02/21/2025, 06/07/2019, 06/12/2016 INFLUENZA VACCINE Completed 05/20/2025, , 05/23/2023, Additional [...] Date/Time Associated Diagnosis Comments COMPREHENSIVE METABOLIC PANEL (CMP) Routine 05/25/2025 1:41 PM EDT Rheumatoid arthritis involving multiple sites with positive rheumatoid factor CBC Routine 05/25/2025 1:41 PM EDT Rheumatoid arthritis involving multiple sites with positive rheumatoid factor SEDIMENTATION RATE (ESR) Routine 05/25/2025 1:41 PM EDT Rheumatoid arthritis involving multiple sites with positive rheumatoid factor C-REACTIVE PROTEIN (CRP) Routine 05/25/2025 1:41 PM EDT Rheumatoid arthritis involving multiple sites with positive rheumatoid factor COMPREHENSIVE METABOLIC PANEL (CMP) Routine 01/28/2025 11:23 AM EDT Rheumatoid arthritis involving multiple sites with positive rheumatoid factor from Last 3 Months or Most Recently Relevant to Health Maintenance Results * Comprehensive metabolic panel (05/25/2025 1:41 PM EDT) Only the most recent of2 resultswithin the time period is included. Blood Hayley Maxwell MD LAB BLOOD BKR ORDERABLES Final Result Performing Organization Address [facility] de Phone Number EXTERNAL NON-INTERFACED REF LAB * CBC (05/25/2025 1:41 PM EDT) Blood Hayley Maxwell MD LAB BLOOD BKR ORDERABLES Final Result Performing Organization Address [facility] de Phone Number EXTERNAL NON-INTERFACED REF LAB * Sedimentation rate (ESR) (05/25/2025 1:41 PM EDT) Blood Hayley Maxwell MD LAB BLOOD BKR ORDERABLES Final Result Performing Organization Address [facility] de Phone Number EXTERNAL NON-INTERFACED REF LAB * C-Reactive Protein (05/25/2025 1:41 PM EDT) Blood Hayely Maxwell MD LAB BLOOD BKR ORDERABLES Final Result Performing Organization Address [facility] de Phone Number EXTERNAL NON-INTERFACED REF LAB from Last 3 Months or Most Recently Relevant to Health Maintenance Insurance MEDICARE PART A & B [employer] MEDEX SUPPLEMENT MEDICARE PART A & B [employer] MEDEX SUPPLEMENT MEDICARE PART A & B [employer] MEDEX SUPPLEMENT MEDICARE PART A & B [employer] MEDEX SUPPLEMENT MEDICARE PART A & B [employer] CR[employer] MEDEX SUPPLEMENT MEDICARE PART A & B [employer] CR[employer] MEDEX SUPPLEMENT Care Teams Customer Assistance Representative Relationship Specialty Start Date End Date Rakel Rodriguez MD [address] [place] [address] PCP - General Internal Medicine 08/04/23 Additional Source Comments The information contained in this document represents components of the legal health record. It is not the complete legal health record.[facility]
[2025-08-15 16:58] LABS: Alanine Aminotransferase 17 U/L (0-31); Albumin Level 4.2 g/dL (3.5-5.0); Alkaline Phosphatase 64 U/L (39-117); Anion Gap 10 (12-20); Aspartate Amino Transferase 20 U/L (5-31); Blood Urea Nitrogen 18 mg/dL (9-16); Calcium 9.1 mg/dL (8.4-10.2); Carbon Dioxide 30 mmol/L (22-29); Chloride 109 mmol/L (96-108); Estimated Glomerular Filt Rate > 60; Iron 120 mcg/dL (30-160); Percent Iron Saturation 44 % (15-50); Potassium 4.1 mmol/L (3.3-5.1); Sodium 145 mmol/L (135-145); Total Iron Binding Capacity 275 mcg/dL (228-428); Total Protein 6.3 g/dL (6.5-8.0); Unsaturated Iron Binding 155 ug/dL
[2025-08-15 17:13] LABS: Folate 15.7 ng/mL (> or = 4.0); Vitamin B12 221 pg/mL (200-900)
== END 2025-08-15 13:16 | disposition home or self-care (01) ==
LOC: HO.HMGCLDS 13:15
PROVIDERS: PCP Internal Medicine; Visit Provider Internal Medicine
DX: I10 Essential (primary) hypertension (principal); E55.9 Vitamin D deficiency, unspecified; E78.5 Hyperlipidemia, unspecified; I48.91 Unspecified atrial fibrillation
CPT/HCPCS: 36415; 80053; 82306; 82607; 82746; 83540; 84443; 85025

== ENCOUNTER 2025-08-22 12:15 | Outpatient (AMB) | payer MEDICARE, SELFPAY ==
[2025-08-22 12:45] VITALS: BP 106/64; PULSE 55; RESP 15; TEMP 36.6; O2SAT 97; BMI 22.3
--- NOTE | 2025-08-22 12:45 | A.OFFPC_ITS ---
Vital Signs 08/22/25 12:45 Height 5 ft 1 in Weight 118 lb BMI 22.3 BP 106/64 Blood Pressure Location Rt brachial Position Sitting Respiration 15 Pulse 55 Pulse Source Pulse Oximeter Temp 97.9 F Temp Source Oral Pulse Oximetry (%) 97 Oxygen Delivery Method Room Air Intake Visit Reasons: 6 months f/up Intake Note: Pt is here today for 6 months follow up visit. Allergies No Known Allergies Allergy (Verified 08/22/25 13:01) Medication List - Last Reconciled 08/22/25 by Rakel Rodriguez MD amiodarone 200 mg PO DAILY amlodipine 5 mg PO DAILY atorvastatin 40 mg PO DAILY cholecalciferol (vitamin D3) 50 mcg PO DAILY Eliquis (apixaban) 5 mg PO BID NS folic acid 0.8 mg PO DAILY levothyroxine 25 mcg PO DAILY methotrexate sodium 20 mg PO QWEEK metoprolol succinate ER 50 mg PO DAILY omeprazole 20 mg PO DAILY trazodone 100 mg (2 x 50 mg) PO BEDTIME PRN valsartan-hydrochlorothiazide 320-12.5 mg 1 tab PO DAILY vit C,E,Zn,Rc-ujwzi5-zgh-zeax 250-2.5-0.5 mg caps PO vitamins A,C,G-kyen-rasoph (PreserVision AREDS) PO Tobacco use date assessed: 08/22/25 Fall risk assessment: No Falls in past year Last assessed Fall Risk: 08/22/25 Dental Screening Dental Screen Date: 10/07/24 HPI 6 months f/up HPI Details Pt presents for f/u HTN, hyperlipid, A fib, hypothyroid, stable on meds. PFSH Medical History Rheumatoid arteritis Vitamin D deficiency Hypothyroid Hyperlipidemia A-fib HTN (hypertension) Surgical History H/O breast biopsy H/O breast biopsy Family History Father Heart problem Maternal Aunt Breast CA Social History Household Members Other:: lives alone, daughter lives in [place], son lives in [place], Housing: House Alcohol intake: never Patient Tobacco Use Status: Never used Tobacco e-Cigarette/Vaping Use: Never Used service: No Current occupational status: retired Current occupational exposures/hazards: No Cognitive needs: No Hearing needs: No Vision needs: Yes Questionnaire Thrive Questionnaire Date Thrive assessed: 09/30/24 I am a: Patient What is your living situation today?: I have a steady place to live Within the past 12 months, did the food you bought not last and you didn't have the money to get more?: Never true Within the past 12 months, did you worry whether your food would run out before you got money to buy more?: Never true Do you have trouble paying for medicines?: No Do you have trouble getting transportation to medical appointments?: No Do you have trouble paying your heating and electricity bill?: No Do you have trouble taking care of your child, family member or friend?: No Do you have trouble with day-to-day activities such as bathing, preparing meals, shopping, managing finances, etc.?: No Are you currently unemployed and looking for a job?: No Are you interested in more education?: No Please select the resources that you would like help with: None Currently or been in a relationship where the following occur: No concerns reported THRIVE Score: 0 RONDA-7 AMB Questionnaire RONDA-7 Date RONDA - 7 assessed: 10/07/24 Source: Developed by Drs. Fredi Lambert, Kamila Winter, Jeanmarie Kevin and colleagues, with an educational clary from [employer]. Review of Systems Const All systems reviewed & are unremarkable except as noted in HPI and below Eyes Reports no additional complaints ENT Reports no additional complaints Card Reports no additional complaints Resp Reports no additional complaints GI Reports no additional complaints Reports no additional complaints Musc Reports no additional complaints Physical exam (Primary Care) Vital Signs: Last Vital Signs Temp 97.9 F 08/22/25 12:45 Pulse 55 08/22/25 12:45 Resp 15 08/22/25 12:45 BP 106/64 08/22/25 12:45 Pulse Ox 97 08/22/25 12:45 Oxygen Delivery Method Room Air 08/22/25 12:45 BMI result Body Mass Index 22.3 Tobacco/Smoking Status: Tobacco use Status Tobacco use date assessed 08/22/25 08/22/25 13:05 Patient Tobacco Use Status Never used Tobacco 08/22/25 12:45 e-Cigarette/Vaping Use Never Used 08/22/25 12:45 Thrive Assessment: Date of Thrive Assessment Date Thrive assessed 09/30/24 08/22/25 12:45 Currently or been in a relationship where the following occur: No concerns reported Const General: no acute distress HENMT Head: Yes normal to inspection Face and sinus: Yes normal facial exam Eyes General: appearance normal, both eyes and all related structures Neck Neck: Yes supple Resp Effort & Inspection: normal respiratory effort Auscultation: clear to auscultation bilaterally Cardio Rhythm: regular rhythm Heart sounds: S1 normal heart sound present and S2 normal heart sound present Coding Level of Care Code Est Pt Level 4 (15915) Diagnoses HTN (hypertension) I10 A-fib I48.91 Hyperlipidemia E78.5 Hypothyroid E03.9 Rheumatoid arteritis M05.20 Assessment & Plan Assessment & Plan (1) HTN (hypertension): Code(s): I10 - Essential (primary) hypertension Category: Medical Plan: Blood pressure is low and amlodipine will be decreased from 5 mg to 2.5 mg. Patient will follow-up in 2 months (2) A-fib: Comment: 1 episode 2020 f/u [facility], Dr. Horton Code(s): I48.91 - Unspecified atrial fibrillation Category: Medical Plan: On amiodarone and Eliquis and established with Cardiology (3) Hyperlipidemia: Code(s): E78.5 - Hyperlipidemia, unspecified Category: Medical Plan: Continue statin (4) Hypothyroid: Code(s): E03.9 - Hypothyroidism, unspecified Category: Medical Plan: Continue levothyroxine (5) Rheumatoid arteritis: Comment: Dr. 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
== END 2025-08-22 15:38 | disposition home or self-care (01) ==
LOC: HO.HMCC 12:16
PROVIDERS: PCP Internal Medicine; Visit Provider Internal Medicine
DX: I10 Essential (primary) hypertension (principal); I48.91 Unspecified atrial fibrillation; M05.20 Rheumatoid vasculitis with rheumatoid arthritis of unspecified site; E78.5 Hyperlipidemia, unspecified; E03.9 Hypothyroidism, unspecified

== ENCOUNTER → 2025-08-22 12:15 | Outpatient (BNVA) | payer MEDICARE, SELFPAY | PROVIDERS: PCP Internal Medicine; Visit Provider Internal Medicine | DX: I10 Essential (primary) hypertension (principal); I48.91 Unspecified atrial fibrillation; E78.5 Hyperlipidemia, unspecified; E03.9 Hypothyroidism, unspecified; M05.20 Rheumatoid vasculitis with rheumatoid arthritis of unspecified site; Z79.899 Other long term (current) drug therapy | CPT/HCPCS: 99212 ==